=== PATIENT | female | born 1945 | race Caucasian/White ===

== ENCOUNTER 2017-03-17 15:53 | Inpatient (IN) | payer MEDICARE, MEDICAID ==
[~2017-03-17] VITALS: Ht 162.6 cm; Wt 105.3 kg
[2017-03-17] MEDS ORDERED: METHYLPREDNISOLONE 125 MG INJ IV STA (15:58)
[2017-03-17] MEDS ORDERED: IPRATROPIUM (NEB) 0.5 MG/2.5 ML AMP INH STA (15:58)
[2017-03-17] MEDS ORDERED: ALBUTEROL 0.5% (NEB) 2.5 MG/0.5 ML AMP INH STA (15:58)
--- NOTE | 2017-03-17 16:05 | ERD ---
ER Documentation Chief Complaint Chief Complaint SOB HPI This is a 71-year-old female with a past medical history of COPD, CHF, question of dementia who is presenting with progressive worsening cough, congestion, wheezing and shortness of breath. The patient is tachypneic and diffusely wheezy in the emergency department, but she reports that nothing is wrong. The patient denies feeling sick. The patient denies fever or chills. The patient has had no headache or vision changes. The patient does not endorse neck or back pain. The patient denies lightheadedness or dizziness. The patient has had no chest pain or shortness of breath or trouble breathing. The patient denies nausea or vomiting. The patient denies abdominal pain or changes to bowel movements or urination. The patient has had no focal deficits. The patient has had no weakness or numbness or tingling to the face or extremities. ROS All systems reviewed and are negative except as per history of present illness. Allergies Allergies: Coded Allergies: No Known Allergy (Unverified , 03/17/17) PMhx/Soc Hx Neurological Disorder: Yes (?Dementia) Hx Respiratory Disorders: Yes (COPD) Hx Cardiac Disorders: Yes (CHF) Hx Psychiatric Problems: No Hx Miscellaneous Medical Probl: No Hx Alcohol Use: No Hx Substance Use: No Hx Tobacco Use: Yes Smoking Status: Current every day smoker FmHx Patient will not provide a family history Physical Exam Vitals Vital Signs Date Time Temp Pulse Resp B/P Pulse Ox O2 Delivery O2 Flow Rate FiO2 03/17/17 21:03 75 24 95 Non Rebreather Mask 15.0 03/17/17 20:02 98.6 77 27 124/65 BIPAP 03/17/17 19:35 77 93 50 03/17/17 18:38 10.0 03/17/17 18:36 Nasal Cannula 03/17/17 18:35 98.3 79 20 120/57 92 BIPAP 10.0 03/17/17 17:30 98.3 85 20 140/45 98 Room Air 03/17/17 17:16 83 100 50 03/17/17 16:31 94 97 50 03/17/17 15:56 102.5 95 36 140/45 85 Physical Exam Const: No apparent distress, well-developed, well-nourished Head: Normocephalic, Atraumatic Eyes: Normal Conjunctiva. Extraocular movements intact. Pupils equal, round and reactive to light ENT: Normal External Ears, Nose and Mouth. Neck: Full range of motion. No meningismus. Resp: Tachypneic, Diffuse wheezes, Faint bibasilar rales Cardio: Regular rate and rhythm. No murmurs, rubs or gallops Abd: Obese, soft, non tender, non distended. Normal bowel sounds Skin: No petechiae or rashes. Back: No midline tenderness. No CVA tenderness Ext: No cyanosis, or edema. Neur: Awake and alert, oriented 2. Cranial nerves intact. No facial droop. Normal strength, sensation and coordination. Result Diagram: 03/17/17 1630 03/17/17 1630 Results 24 hrs Laboratory Tests Test 03/17/17 16:30 03/17/17 17:25 White Blood Count 8.210^3/ul Red Blood Count 3.4510^6/ul Hemoglobin 10.6g/dl Hematocrit 31.9% Mean Corpuscular Volume 92.5fl Mean Corpuscular Hemoglobin 30.7pg Mean Corpuscular Hemoglobin Concent 33.2g/dl Red Cell Distribution Width 13.6% Platelet Count 96479^3/UL Mean Platelet Volume 11.5fl Neutrophils % 77.0% Lymphocytes % 9.0% Monocytes % 13.4% Eosinophils % 0.0% Basophils % 0.2% Nucleated Red Blood Cells % 0.0/100WBC Neutrophils # 6.310^3/ul Lymphocytes # 0.710^3/ul Monocytes # 1.110^3/ul Eosinophils # 0.010^3/ul Basophils # 0.010^3/ul Nucleated Red Blood Cells # 0.010^3/ul Prothrombin Time 13.2Sec Prothrombin Time Ratio 1.0 INR International Normalized Ratio 0.99 Activated Partial Thromboplast Time 26.9Sec Sodium Level 131mmol/L Potassium Level 3.8mmol/L Chloride Level 96mmol/L Carbon Dioxide Level 25mmol/L Anion Gap 14 Blood Urea Nitrogen 15mg/dl Creatinine 0.81mg/dl Glucose Level 132mg/dl Calcium Level 7.9mg/dl Iron Level 29ug/dl Total Iron Binding Capacity 317ug/dl Percent Iron Saturation 9% SAT Troponin I 0.040ng/ml B-Type Natriuretic Peptide 883PG/ML Blood Gas Specimen Source Blood arterial Arterial Blood Date Drawn 03/17/2017 6:29:07 PM Arterial Blood pH (Temp corrected) 7.329 Arterial Blood pCO2 (Temp correct) 43.3mmhg Arterial Blood pO2 (Temp corrected) 74.3mmHG Arterial Blood HCO3 22.3mmol/L Arterial Blood Base Excess -3.6mmol/L Arterial Blood Oxygen Saturation 94.3mmHG Vahe Test ACCEPTAB Arterial Blood Gas Puncture Site Right Radial Arterial Blood Carboxyhemoglobin 1.6% Arterial Blood Methemoglobin 0.1% Blood Gas A-a O2 Differential 233.5mmHg Oxyhemoglobin Percent 92.7% Total Hemoglobin 11.6g/dl Blood Gas Temperature 37.0C Blood Gas Respiration Rate 12.0 Blood Gas Actual Respiration Rate 30 Blood Gas Modality MASK - BIPAP FiO2 50.0% Blood Gas Pressure Support 10 Blood Gas IPAP/EPAP Ratio 15 Blood Gas Notified Whom M.D. Blood Gas Notified Time 03/17/2017 6:36:45 PM Current Medications Medications (Trade) Dose Ordered Sig/Steven Route PRN Reason Start Time Stop Time Status Last Admin Dose Admin Ipratropium Natoma (Atrovent 0.02% (Neb)) 1.5 mg ONCE STAT INH 03/17/17 15:58 03/17/17 16:03 DC 03/17/17 16:12 Albuterol (Proventil 0.5% (Neb)) 15 mg ONCE STAT INH 03/17/17 15:58 03/17/17 16:03 DC 03/17/17 16:12 Methylprednisolone Sodium Succinate (Solu-Medrol) 125 mg ONCE STAT IV 03/17/17 15:58 03/17/17 16:03 DC 03/17/17 16:26 Ondansetron HCl (Zofran Inj) 4 mg ER BRIDGE PRN IV NAUSEA AND/OR VOMITING 03/17/17 18:00 03/18/17 17:59 03/17/17 19:51 Acetaminophen 650 mg 650 mg ER BRIDGE PRN PO MILD PAIN/FEVER 03/17/17 18:00 03/18/17 17:59 Sodium Chloride (NS) 1,000 ml @ 75 mls/hr [id number] IV 03/17/17 18:06 03/18/17 06:05 03/17/17 19:51 IV Flush (NS 3 ml) 3 ml PER PROTOCOL IV 03/17/17 18:30 Ondansetron HCl (Zofran Inj) 4 mg Q6H PRN IV NAUSEA AND/OR VOMITING 03/17/17 18:30 Acetaminophen (Tylenol Tab) 650 mg Q6H PRN PO PAIN LEVEL 1-3 OR FEVER 03/17/17 18:30 Docusate Sodium (Colace) 100 mg Q12H PRN PO CONSTIPATION 03/17/17 18:30 Magnesium Hydroxide (Milk Of Mag) 30 ml DAILY PRN PO CONSTIPATION 03/17/17 18:30 Pantoprazole (Protonix Tab) 40 mg DAILY@06 PO 03/18/17 06:00 Enoxaparin Sodium (Lovenox) 40 mg DAILY SC 03/18/17 09:00 Albuterol/ Ipratropium (Duoneb) 3 ml Q4H RESP THERAPY NEB 03/17/17 21:00 03/17/17 21:03 Albuterol (Proventil 0.083% (Neb)) 2.5 mg Q2H RESP THERAPY PRN NEB SHORTNESS OF BREATH 03/17/17 18:30 Methylprednisolone Sodium Succinate 60 mg 60 mg Q6 IV 03/18/17 00:00 Levofloxacin/ Dextrose (Levaquin 500mg/ D5W 100 ml (Pmx)) 250 ml @ 100 mls/hr Q24H IV 03/17/17 18:30 03/17/17 19:50 Furosemide (Lasix) 40 mg ONCE ONCE IV 03/17/17 19:30 03/17/17 19:31 DC 03/17/17 19:51 Procedures/MDM MDM The patient's presentation warrants further investigation. The patient's symptoms are concerning for a COPD exacerbation. A cardiopulmonary workup will be performed. She needs to be evaluated for PNA. She denies chest pain. She does not have a history consistent with ACS. The patient has CHF, but clinically , this doesn't appear to be a CHF exacerbation. She does not have symptoms of thoracic aortic dissection or PTX. PE is possible given her hypoxia and tachypnea, but I have a higher suspicion for COPD given her wheezing. She has no GI symptoms. I have low suspicion for esophageal tear or perforation or other pathology. LABS The patient's blood work was obtained and reviewed. The patient's CBC shows no leukocytosis and no left shift. The patient was initially febrile, so there is a possibility of infection. The patient is mildly anemic today, but this does not require emergent therapy. The patient's platelet count is unremarkable. The patient's CMP shows no signs of metabolic or electrolyte emergencies. She has a mild hyponatremia, but this does not require emergent replacement. The patient has unremarkable renal and hepatic function testing. Troponin is within normal limits. BNP is indeterminant. EKG EKG read by me: Rate/Rhythm: Sinus rhythm with PACs at 97 bpm Intervals: Normal Portal: Left shifted Impression: No evidence of ischemia or arrhythmia IMAGING CXR FINDINGS: There is mild cardiomegaly. Aortic calcifications are present. There is mild pulmonary edema and probable trace left pleural effusion. No evidence of pneumothorax. There are degenerative changes of the spine. IMPRESSION: Mild pulmonary edema with probable trace left pleural effusion. Electronically viewed and signed by Physician Clare on 03/17/2017 16:59 TREATMENT/DISPOSITION Patient was hypoxic to the 60s upon arrival. The patient placed on BiPAP upon arrival with improvement of her oxygenation. ABG shows a decreased PaO2 but her PCO2 and HCO2 is unremarkable. The patient was initially febrile. There is a chance of infection, such as bronchitis or URI, but there is no evidence of PNA. Given that her symptoms are consistent with a COPD exacerbation, antibiotics may be warranted in the hospital. I doubt sepsis. The patient was given nebulized albuterol, ipratropium and steroids in the ER. If the patient's symptoms don't improve, a CTA chest may be warranted for further detail of the lungs and for evaluation of PE. The patient's symptoms stabilized on BiPAP. At this time, I feel that the patient requires admission for further evaluation and management. The patient will be admitted to Panel in accordance with the patient's insurance. The patient was accepted by Dr. Rodriguez at 1732PM on 03/17/2017. The patient's blood pressure was elevated at greater than 120/80 while in the emergency department. The patient was otherwise stable with no evidence of hypertensive urgency or emergency or end organ damage. The patient does not require admission for blood pressure control. I have discussed with the patient the risks of hypertension. I have advised the patient to follow up with the primary care physician for outpatient monitoring and treatment for hypertension in 2-3 days. I have instructed the patient to return to the ER for any new or worsening symptoms including chest pain, shortness of breath, headache, blurred vision, confusion, nausea, vomiting or LOC. Disclaimer: Inadvertent spelling and grammatical errors are likely due to EHR/ dictation software use and do not reflect on the overall quality of patient care. Note that the electronic time recorded on this note does not necessarily reflect the actual time of the patient encounter. Departure Diagnosis: Primary Impression: Hypoxia Additional Impressions: Shortness of breath COPD exacerbation URI (upper respiratory infection) URI type: unspecified URI Qualified Code: J06.9 - Upper respiratory tract infection, unspecified type Condition: Serious MORGAN GARDINER MD Mar 17, 2017 16:05 MORGAN GARDINER MD Mar 17, 2017 16:05
[2017-03-17 16:42] LABS: BASOPHILS % 0.2 % (0.0-2.0); HEMATOCRIT 31.9 % (37.0-47.0); HEMOGLOBIN 10.6 g/dl (12.0-16.0); LYMPHOCYTES # 0.7 10^3/ul (0.8-2.9); MEAN CORPUSCULAR HEMOGLOBIN 30.7 pg (29.0-33.0); MEAN CORPUSCULAR HGB CONC 33.2 g/dl (32.0-37.0); MEAN CORPUSCULAR VOLUME 92.5 fl (82.0-101.0); MEAN PLATELET VOLUME 11.5 fl (7.4-10.4); MONOCYTE # 1.1 10^3/ul (0.3-0.9); MONOCYTES % 13.4 % (0.0-11.0); NEUTROPHIL # 6.3 10^3/ul (1.6-7.5); PLATELET COUNT 197 10^3/UL (140-415); RED BLOOD COUNT 3.45 10^6/ul (4.20-5.40); RED CELL DISTRIBUTION WIDTH 13.6 % (11.5-14.5); WHITE BLOOD COUNT 8.2 10^3/ul (4.8-10.8)
[2017-03-17 16:56] LABS: INR 0.99; PROTIME 13.2 Sec (11.9-14.9)
[2017-03-17 16:57] LABS: PARTIAL THROMBOPLASTIN TIME 26.9 Sec (25.0-35.0)
[2017-03-17 16:59] LABS: CALCIUM 7.9 mg/dl (8.4-10.2); CREATININE 0.81 mg/dl (0.44-1.00); POTASSIUM 3.8 mmol/L (3.5-5.1)
--- NOTE | 2017-03-17 16:59 | RADRPT ---
PROCEDURE: XR Chest. CLINICAL INDICATION: Shortness of breath. TECHNIQUE: Single frontal view of the chest was obtained COMPARISON: None FINDINGS: There is mild cardiomegaly. Aortic calcifications are present. There is mild pulmonary edema and probable trace left pleural effusion. No evidence of pneumothorax. There are degenerative changes of the spine. IMPRESSION: 1. Mild pulmonary edema with probable trace left pleural effusion. RPTAT:AAJJ Physician Clare Date Time Electronically viewed and signed by Juanpablo Toussaint Physician on 03/17/2017 16:59 QL/
[2017-03-17 17:11] LABS: TROPONIN-I 0.04 ng/ml (0.00-0.12)
[2017-03-17] MEDS ORDERED: ONDANSETRON 4 MG INJ IV PRN ×2 (18:00→18:30)
[2017-03-17] MEDS ORDERED: ACETAMINOPHEN 325 MG TAB PO PRN ×2 (18:00→18:30)
--- NOTE | 2017-03-17 18:28 | HP ---
Date/Time of Note Date/Time of Note DATE: 03/17/17 TIME: 18:10 Assessment/Plan VTE Prophylaxis VTE Prophylaxis Intervention: SCD's Assessment/Plan Assessment/Plan 1. COPD exacerbation - patient is an everyday smoker and denies any respiratory issues at this time - Will continue on bipap due to continuing to desaturate but will wean to maintain saturations >88% - Awaiting ABG results - Pulmonology consultation placed - Continue on IV steroids, nebs, and antibiotics 2. Acute respiratory failure with hypoxia secondary to #1 - continue on BIPAP and saturations improved to 98% - Continue monitoring 3. ?Acute on chronic CHF - patient does not appear to be overloaded - CXR shows mild pulmonary congestion - BNP pending - Will continue on home medications - ECHO to assess EF 4. HTN - BP stable - continue on home medications 5. HLD 6. Hyponatremia - possibly hypovolemic etiology - will gently hydrate with IVF for 12 hours then reassess need for fluid given h /o CHF 7. Anemia - will check iron studies 8. Diet - cardiac diet 9. GI ppx - PPI 10. DVT ppx - LMWH 11. Code status - Full 12. Disposition - Admit to telemetry HPI/ROS Admit Date/Time Admit Date/Time 03/17/17 Hx of Present Illness 71 yo F with PMH HTN, HLD, CHF, and COPD presented to ED with no complaints. When asked what brought her to the ED she states the facility she lives at made her come. Patient is a poor historian. History obtained from ED physician. Patient has been experiencing cough with sputum production, shortness of breath , and wheezing. She was found to be saturating 67% on room air when presented to the ED. When asked ROS states everything was fine and nothing wrong with her lungs. She did make it clear she does not plan to quit smoking. She lives at a [facility] facility. Patient was placed on BIPAP in the ED and when removed desaturated to 84% and had audible wheezing. CXR showed mild pulmonary edema. ABG and BNP obtained but pending. Patient denies any chest pain, shortness of breath, nausea, vomiting, fevers, chills, or abdominal issues. ROS All 12 systems reviewed and pertinent positives as per HPI. Patient is a poor historian and denies any complaints. Constitutional: No diaphoresis, No febrile, No nausea Eyes: No discharge, No redness ENT: No congestion, No discharge Respiratory: cough, sputum, No pain, No shortness of breath, No wheezing Cardiovascular: No chest pain, No edema, No lightheadedness, No palpitations Gastrointestinal: No constipation, No diarrhea, No nausea, No vomiting Genitourinary: no complaints Musculoskeletal: no complaints Skin: no complaints Neurologic: no complaints Endocrine: no complaints Lymphatic: no complaints Psychological: no complaints Immunologic: no complaints PMH/Family/Social Past Medical History Medical History: congestive heart failure, high cholesterol, hypertension, other (COPD) Past Surgical History Denies surgeries Family History Significant Family History: no pertinent family hx Social History Alcohol Use: none Smoking Status: Current every day smoker Drug Use: none Exam/Review of Systems Vital Signs Vitals Vital Signs Date Time Temp Pulse Resp B/P Pulse Ox O2 Delivery O2 Flow Rate FiO2 03/17/17 17:16 83 100 50 03/17/17 15:56 102.5 36 140/45 Exam Exam General: patient labored breathing off BIPAP with audible wheezing, disheveled, upbeat and pleasant HEENT: EOM intact, PERRL, neck supple CVS: S1, S2, RRR, no murmurs Lungs: audible expiratory wheezing, diminished breath sounds, basilar crackles Abd: soft, nontender, nondistended, +bowel sounds, no rebound or guarding Ext: moving all extremities, no edema, cyanosis, or clubbing Skin: no bruising, rashes, or abnormalities appreciated Labs Result Diagram: 03/17/17 1630 03/17/17 1630 Medications Medications Current Medications Sodium Chloride (NS) 1,000 ml @ 75 mls/hr [id number] IV ; Start 03/17/17 at 18:06 ; Stop 03/18/17 at 06:05; Status UNV Ondansetron HCl (Zofran Inj) 4 mg Q6H PRN IV NAUSEA AND/OR VOMITING; Start at 18:30; Status UNV Acetaminophen (Tylenol Tab) 650 mg Q6H PRN PO PAIN LEVEL 1-3 OR FEVER; Start 03/17/17 at 18:30; Status UNV Docusate Sodium (Colace) 100 mg Q12H PRN PO CONSTIPATION; Start 03/17/17 at 18 :30; Status UNV Magnesium Hydroxide (Milk Of Mag) 30 ml DAILY PRN PO CONSTIPATION; Start 03/17 at 18:30; Status UNV Pantoprazole (Protonix Tab) 40 mg DAILY@06 PO ; Start 03/18/17 at 06:00; Status UNV Enoxaparin Sodium (Lovenox) 40 mg DAILY SC ; Start 03/18/17 at 09:00; Status UNV FREYA LEGER MD Mar 17, 2017 18:21
[2017-03-17] MEDS ORDERED: ALBUTEROL 0.083% (NEB) 2.5 MG/3 ML AMP NEB PRN (18:30)
[2017-03-17] MEDS ORDERED: NACL 0.9% 3 ML SYG IV SCH (18:30)
[2017-03-17] MEDS ORDERED: MAGNESIUM HYDROXIDE 30ML CUP PO PRN (18:30)
[2017-03-17] MEDS ORDERED: DOCUSATE SODIUM 100 MG CAP PO PRN (18:30)
[2017-03-17 18:36] LABS: AADO2 Arterial 233.5 mmHg (7.0-24.0); Allen Test ACCEPTAB; Arterial Base Excess -3.6 mmol/L (-3.0-3); Arterial COHb 1.6 % (0.0-3.0); Arterial Fraction of Oxyhgb 92.7 % (93.0-99.0); Arterial HCO3 22.3 mmol/L (22.0-26.0); Arterial MetHb 0.1 % (0.0-1.5); Arterial Total Hemglobin 11.6 g/dl (12.0-18.0); Blood Gas IEPAP 15/5; Blood Gas PS 10; MODE MASK - BIPAP
[2017-03-17 18:49] LABS: IRON 29 ug/dl (35-150)
[2017-03-17 18:59] LABS: TOTAL IRON BINDING CAPACITY 317 ug/dl (241-421)
[2017-03-17] MEDS ORDERED: FUROSEMIDE 40 MG INJ IV ONE (19:30)
[2017-03-17] MEDS: LEVOFLOXACIN 500MG/D5W (PMX) 250 ML IV SCH (19:50)
[2017-03-17] MEDS: SOD CHLORIDE 0.9% 1,000 ML IV SCH (19:51)
[2017-03-17] MEDS: ALBUTEROL/IPRATROPIUM (NEB) 3 ML AMP NEB SCH (21:03)
[2017-03-18] VITALS (17 sets, daily range): BP systolic 101–124; BP diastolic 52–66; PULSE 60–71; RESP 18–22; TEMP 97.7; Ht 162.6 cm; Wt 105.3 kg
[2017-03-18] MEDS: ALBUTEROL/IPRATROPIUM (NEB) 3 ML AMP NEB SCH ×6 (01:25→20:28)
[2017-03-18] MEDS: SOD CHLORIDE 0.9% 1,000 ML IV SCH (02:45)
[2017-03-18] MEDS: METHYLPREDNISOLONE 125 MG INJ IV SCH ×4 (05:17→17:46)
[2017-03-18] MEDS: PANTOPRAZOLE (EC) 40 MG TAB PO SCH (05:20)
[2017-03-18 05:50] LABS: ABNORMAL IP MESSAGE 1; BASOPHILS % 0.2 % (0.0-2.0); HEMATOCRIT 33.4 % (37.0-47.0); HEMOGLOBIN 10.5 g/dl (12.0-16.0); LYMPHOCYTES # 0.3 10^3/ul (0.8-2.9); LYMPHOCYTES % 4.9 % (15.0-51.0); MEAN CORPUSCULAR HEMOGLOBIN 30.2 pg (29.0-33.0); MEAN CORPUSCULAR HGB CONC 31.4 g/dl (32.0-37.0); MEAN PLATELET VOLUME 11.9 fl (7.4-10.4); MONOCYTE # 0.2 10^3/ul (0.3-0.9); MONOCYTES % 2.5 % (0.0-11.0); NEUTROPHIL # 5.9 10^3/ul (1.6-7.5); NEUTROPHILS % 91.6 % (39.0-77.0); PLATELET COUNT 173 10^3/UL (140-415); RED BLOOD COUNT 3.48 10^6/ul (4.20-5.40); RED CELL DISTRIBUTION WIDTH 13.5 % (11.5-14.5); WHITE BLOOD COUNT 6.4 10^3/ul (4.8-10.8)
[2017-03-18 06:02] LABS: POSITIVE DIFF @See below
[2017-03-18 06:13] LABS: ALBUMIN 3.6 g/dl (3.3-4.9); CREATININE 0.88 mg/dl (0.44-1.00); MAGNESIUM 1.7 mg/dl (1.7-2.5); POTASSIUM 4.9 mmol/L (3.5-5.1)
[2017-03-18] MEDS: ENOXAPARIN 40 MG/0.4 ML SYG SC SCH (08:44)
[2017-03-18] MEDS: TERBINAFINE 250 MG TAB PO SCH ×3 (09:30→20:38)
--- NOTE | 2017-03-18 09:41 | PN ---
Date/Time of Note Date/Time of Note DATE: 03/18/17 TIME: 09:36 Assessment/Plan VTE Prophylaxis VTE Prophylaxis Intervention: heparin Lines/Catheters IV Catheter Type (from Nrs): Peripheral IV Assessment/Plan Problems: (1) Patient data not recorded Status: Acute Comment: She is not able to give much history. I called the home phone number and discovered that she lives insulin pump at a residential facility. They were able to give me her medication list and that her physician is Dr. West. Her medications are amlodipine 10 mg once daily atorvastatin 10 [place] [address] 0.5 every morning furosemide 40 mg daily Risperdal 3 mg twice daily. He has not been on a on any inhalers. (2) Shortness of breath Status: Acute Comment: She is still short of breath on BiPAP. With this degree of respiratory failure and the need place her on anti-COPD therapeutics, as well as treat her for volume overload. (3) Hypoxia Status: Acute Comment: As above. Pulmonary has been consulted (4) Iron deficiency anemia Status: Chronic Comment: I will replete her iron parenterally. This will need to be worked up as an outpatient by her primary physician Dr. West Qualifiers: Iron deficiency anemia type: unspecified iron deficiency Qualified Code: D50.9 - Iron deficiency anemia, unspecified iron deficiency anemia type (5) Lipidemia Status: Chronic Comment: Continue on statin therapy. Qualifiers: Hyperlipidemia type: pure hypercholesterolemia Qualified Code: E78.00 - Pure hypercholesterolemia (6) Essential hypertension Status: Chronic Comment: Resume her losartan. Please note I would like to adjust downwards on the amlodipine which causes fluid retention lower extremity edema. (7) Schizoaffective disorder Status: Chronic Comment: Risperdal to resume tomorrow. Qualifiers: Schizoaffective disorder type: unspecified Qualified Code: F25.9 - Schizoaffective disorder, unspecified type (8) Obesity (BMI 30-39.9) Status: Chronic Comment: Calorie restriction diet. (9) COPD exacerbation Status: Acute Comment: Again she is on standard anti-COPD medications. I am going to be following her sugars as I have a fear that she has an on mentioned glucose intolerance. Subjective 24 Hr Interval Summary Free Text/Dictation Elderly female who is quite gregarious while wearing BiPAP. She has extremely limited information as not able to add to the database Constitutional: no complaints Respiratory: shortness of breath Cardiovascular: no complaints Gastrointestinal: no complaints Exam/Review of Systems Vital Signs Vitals Vital Signs Date Time Temp Pulse Resp B/P Pulse Ox O2 Delivery O2 Flow Rate FiO2 03/18/17 09:14 98.3 64 18 101/52 92 03/18/17 08:18 50 03/18/17 01:29 Mask 10.0 Intake and Output 03/17/17 03/17/17 03/18/17 15:00 23:00 07:00 Intake Total 1700 ml Output Total 650 ml Balance 1050 ml Exam Constitutional: alert, oriented Neck: non-tender, supple Respiratory: diminished breath sounds, wheezing Cardiovascular: nl pulses, regular rate and rhythm Results Result Diagram: 03/18/17 0427 03/18/17 0426 Results 24 hrs Laboratory Tests Test 03/17/17 16:30 03/17/17 17:25 03/18/17 04:26 03/18/17 04:27 White Blood Count 8.2 6.4 # Red Blood Count 3.45 L 3.48 L Hemoglobin 10.6 L 10.5 L Hematocrit 31.9 L 33.4 L Mean Corpuscular Volume 92.5 96.0 Mean Corpuscular Hemoglobin 30.7 30.2 Mean Corpuscular Hemoglobin Concent 33.2 31.4 L Red Cell Distribution Width 13.6 13.5 Platelet Count 197 173 Mean Platelet Volume 11.5 H 11.9 H Neutrophils % 77.0 91.6 H Lymphocytes % 9.0 L 4.9 L Monocytes % 13.4 H 2.5 Eosinophils % 0.0 0.0 Basophils % 0.2 0.2 Nucleated Red Blood Cells % 0.0 0.0 Neutrophils # 6.3 5.9 Lymphocytes # 0.7 L 0.3 L Monocytes # 1.1 H 0.2 L Eosinophils # 0.0 0.0 Basophils # 0.0 0.0 Nucleated Red Blood Cells # 0.0 0.0 Prothrombin Time 13.2 Prothrombin Time Ratio 1.0 INR International Normalized Ratio 0.99 Activated Partial Thromboplast Time 26.9 Sodium Level 131 L 133 L Potassium Level 3.8 4.9 Chloride Level 96 L 97 Carbon Dioxide Level 25 24 Anion Gap 14 17 H Blood Urea Nitrogen 15 23 H Creatinine 0.81 0.88 Glucose Level 132 198 Calcium Level 7.9 L 8.0 L Iron Level 29 L Total Iron Binding Capacity 317 Percent Iron Saturation 9 L Troponin I 0.040 B-Type Natriuretic Peptide 883 H Blood Gas Specimen Source Blood arterial Arterial Blood Date Drawn 03/17/2017 6:29:07 PM Arterial Blood pH (Temp corrected) 7.329 L Arterial Blood pCO2 (Temp correct) 43.3 Arterial Blood pO2 (Temp corrected) 74.3 L Arterial Blood HCO3 22.3 Arterial Blood Base Excess -3.6 L Arterial Blood Oxygen Saturation 94.3 L Vahe Test ACCEPTAB Arterial Blood Gas Puncture Site Right Radial Arterial Blood Carboxyhemoglobin 1.6 Arterial Blood Methemoglobin 0.1 Blood Gas A-a O2 Differential 233.5 H Oxyhemoglobin Percent 92.7 L Total Hemoglobin 11.6 L Blood Gas Temperature 37.0 Blood Gas Respiration Rate 12.0 Blood Gas Actual Respiration Rate 30 Blood Gas Modality MASK - BIPAP FiO2 50.0 Blood Gas Pressure Support 10 Blood Gas IPAP/EPAP Ratio 15/5 Blood Gas Notified Whom M.D. Blood Gas Notified Time 03/17/2017 6:36:45 PM Phosphorus Level 6.0 H Magnesium Level 1.7 Albumin 3.6 Medications Medications Current Medications Ondansetron HCl (Zofran Inj) 4 mg Q6H PRN IV NAUSEA AND/OR VOMITING; Start at 18:30 Acetaminophen (Tylenol Tab) 650 mg Q6H PRN PO PAIN LEVEL 1-3 OR FEVER; Start 03/17/17 at 18:30 Docusate Sodium (Colace) 100 mg Q12H PRN PO CONSTIPATION; Start 03/17/17 at 18 :30 Magnesium Hydroxide (Milk Of Mag) 30 ml DAILY PRN PO CONSTIPATION; Start 03/17 at 18:30 Pantoprazole (Protonix Tab) 40 mg DAILY@06 PO Last administered on 03/18/17 05:20; Admin Dose 40 MG; Start 03/18/17 at 06:00 Enoxaparin Sodium (Lovenox) 40 mg DAILY SC Last administered on 03/18/17 08: 44; Admin Dose 40 MG; Start 03/18/17 at 09:00 Methylprednisolone Sodium Succinate 60 mg 60 mg Q6 IV Last administered on 05:17; Admin Dose 60 MG; Start 03/18/17 at 00:00 Levofloxacin/ Dextrose (Levaquin 500mg/ D5W 100 ml (Pmx)) 250 ml @ 100 mls/hr Q24H IV Last administered on 03/17/17t 19:50; Admin Dose 100 MLS/HR; Start at 18:30 GABBIE RENAE MD Mar 18, 2017 09:41
[2017-03-18] MEDS ORDERED: DEXTROSE 50% 50 ML SYRINGE IV PRN ×2 (10:00)
[2017-03-18] MEDS ORDERED: GLUCOSE GEL 15 GRAM TUBE PO PRN ×2 (10:00)
[2017-03-18] MEDS: TIOTROPIUM 18 MCG CAPSULE INHA DEV INH SCH ×2 (10:00→11:52)
[2017-03-18] MEDS: SALMETEROL/FLUTICASONE 250/50 INHA INH SCH ×3 (10:00→20:37)
[2017-03-18] MEDS ORDERED: GLUCAGON 1 MG INJ IM PRN (10:00)
[2017-03-18] MEDS ORDERED: GLUCOSE GEL 15 GRAM TUBE BUCCAL PRN (10:00)
[2017-03-18] MEDS: FUROSEMIDE 40 MG TAB PO SCH (10:05)
[2017-03-18] MEDS: SPIRONOLACTONE 25 MG TAB PO SCH (10:05)
[2017-03-18] MEDS: LOSARTAN 50 MG TAB PO SCH (10:06)
[2017-03-18] MEDS: AMLODIPINE 2.5 MG TAB PO SCH (10:06)
[2017-03-18] MEDS: SOD FERRIC GLUC COMPLX 125 MG in SOD CHLORIDE 0.9% 100 ML IVPB SCH (11:51)
[2017-03-18] MEDS: INSULIN ASPART [NOVOLOG] 3 ML PEN SC SCH ×3 (12:02→20:38)
--- NOTE | 2017-03-18 15:06 | CONS ---
DATE OF ADMISSION: 03/17/2017 DATE OF CONSULTATION: REASON FOR CONSULTATION: Shortness of breath. Thank you, Dr. Rodriguez, for this consultation. HISTORY OF PRESENT ILLNESS: This is a 71-year-old lady with extensive tobacco history, continues to smoke 1 pack per day prior to this admission. She was admitted from facility with a several-day hi story of increasing shortness of breath, orthopnea, PND. The patient is a poor historian, unable to give me further details. On admission, required initiation of noninvasive positive pressure ventil ation and remains BiPAP dependent this morning; however, is awake, alert, and arousable. PAST MEDICAL HISTORY: 1. Likely chronic obstructive pulmonary disease. 2. Hypertension. 3. Hyperlipidemia. MEDICATIONS: Per chart. ALLERGIES: NONE. SOCIAL HISTORY: Positive tobacco history. No drug use. FAMILY HISTORY: Noncontributory. SYSTEMS REVIEW: A 14-point review of systems was negative other than that mentioned above. PHYSICAL EXAMINATION: GENERAL: Elderly lady on BiPAP currently arousable, afebrile. VITAL SIGNS: Temperature 98, pulse 70, blood pressure 101/52, O2 saturation 95% on BiPAP, FIO2 of 5 0%. Awake, alert. NECK: Supple. No JVD or lymphadenopathy. CARDIAC: S1, S2, no added sounds or murmurs. CHEST: Diminished air entry bilaterally. ABDOMEN: Soft, nontender. No guarding or rebound. EXTREMITIES: No cyanosis, clubbing, edema. NEUROLOGIC: No focal deficits. LABORATORY DATA: White count was 6.4, hemoglobin 10.5, platelets of 173, BUN 23, creatinine 0.88. Iron saturation was 9%. BNP 883. Initial ABG: pH 7.32, pCO2 of 43, pO2 of 74 on BiPAP. DIAGNOSTIC DATA: Chest x-ray was reviewed and showed mild pulmonary edema. IMPRESSION AND PLAN: 1. Possible mild diastolic dysfunction. 2. Chronic obstructive pulmonary disease with acute hypoxemic respiratory failure. 3. Underlying history of tobacco use. The patient will require 1. Steroids. 2. Bronchodilators. 3. Antibiotics if progressive leukocytosis. 4. Outpatient pulmonary function test. 5. Advised on smoking cessation. 6. Pneumonia and influenza vaccinations. Dictated By: DEMI SOARES/SHABNAM Conf#: [id number] DID#: [id number] CC: Lola Rodriguez;*EndCC*
[2017-03-18] MEDS: LEVOFLOXACIN 500MG/D5W (PMX) 250 ML IV SCH (17:46)
[2017-03-18] MEDS: ATORVASTATIN 10 MG TAB PO SCH (20:38)
[2017-03-18] MEDS: MONTELUKAST 10 MG TAB PO SCH (20:38)
[2017-03-19] VITALS (23 sets, daily range): BP systolic 92–150; BP diastolic 56–72; PULSE 59–96; RESP 18–21
[2017-03-19] MEDS: ACCU-CHEK XX SCH (01:04)
[2017-03-19] MEDS: ALBUTEROL/IPRATROPIUM (NEB) 3 ML AMP NEB SCH ×7 (01:16→20:56)
[2017-03-19] MEDS: PANTOPRAZOLE (EC) 40 MG TAB PO SCH (05:34)
[2017-03-19] MEDS: METHYLPREDNISOLONE 125 MG INJ IV SCH ×4 (05:34→17:31)
[2017-03-19 06:09] LABS: ABNORMAL IP MESSAGE 1; LYMPHOCYTES # 0.5 10^3/ul (0.8-2.9); LYMPHOCYTES % 5.2 % (15.0-51.0); MEAN CORPUSCULAR HEMOGLOBIN 30.4 pg (29.0-33.0); MEAN CORPUSCULAR HGB CONC 31.3 g/dl (32.0-37.0); MEAN CORPUSCULAR VOLUME 97.3 fl (82.0-101.0); MEAN PLATELET VOLUME 11.4 fl (7.4-10.4); MONOCYTE # 0.5 10^3/ul (0.3-0.9); MONOCYTES % 5.1 % (0.0-11.0); NEUTROPHIL # 9.3 10^3/ul (1.6-7.5); NEUTROPHILS % 89.1 % (39.0-77.0); PLATELET COUNT 199 10^3/UL (140-415); RED BLOOD COUNT 3.29 10^6/ul (4.20-5.40); RED CELL DISTRIBUTION WIDTH 13.6 % (11.5-14.5); WHITE BLOOD COUNT 10.4 10^3/ul (4.8-10.8)
[2017-03-19 06:15] LABS: POSITIVE DIFF @See below
[2017-03-19 06:47] LABS: ALBUMIN 3.3 g/dl (3.3-4.9); ALBUMIN/GLOBULIN RATIO 0.97; BILIRUBIN,INDIRECT 0.1 mg/dl (0-1.1); BILIRUBIN,TOTAL 0.1 mg/dl (0.2-1.3); CALCIUM 7.8 mg/dl (8.4-10.2); CREATININE 0.92 mg/dl (0.44-1.00); POTASSIUM 4.6 mmol/L (3.5-5.1); TOTAL PROTEIN 6.7 g/dl (6.1-8.1)
[2017-03-19 08:42] LABS: AADO2 Arterial 300.3 mmHg (7.0-24.0); Allen Test ACCEPTAB; Arterial Base Excess -0.2 mmol/L (-3.0-3); Arterial COHb 0.3 % (0.0-3.0); Arterial Fraction of Oxyhgb 93.1 % (93.0-99.0); Arterial HCO3 26.5 mmol/L (22.0-26.0); Arterial MetHb 0.1 % (0.0-1.5); Arterial Total Hemglobin 11.5 g/dl (12.0-18.0); Blood Gas IEPAP 15/5; MODE MASK - BIPAP
[2017-03-19] MEDS: INSULIN ASPART [NOVOLOG] 3 ML PEN SC SCH ×4 (08:50→21:00)
[2017-03-19] MEDS: ENOXAPARIN 40 MG/0.4 ML SYG SC SCH (08:50)
[2017-03-19] MEDS: SPIRONOLACTONE 25 MG TAB PO SCH (08:53)
[2017-03-19] MEDS: SALMETEROL/FLUTICASONE 250/50 INHA INH SCH ×2 (08:53→21:22)
[2017-03-19] MEDS: TERBINAFINE 250 MG TAB PO SCH ×2 (08:55→21:24)
[2017-03-19] MEDS: AMLODIPINE 2.5 MG TAB PO SCH (08:55)
[2017-03-19] MEDS: LOSARTAN 50 MG TAB PO SCH (08:55)
[2017-03-19] MEDS: FUROSEMIDE 40 MG TAB PO SCH (08:56)
[2017-03-19] MEDS: TIOTROPIUM 18 MCG CAPSULE INHA DEV INH SCH (08:59)
--- NOTE | 2017-03-19 10:30 | RADRPT ---
PROCEDURE: XR Chest. CLINICAL INDICATION: Pneumonia. Congestive heart failure. TECHNIQUE: Chest x-ray, single view. COMPARISON: 03/17/2017. FINDINGS: The heart is enlarged and unchanged in size. Thoracic aortic atherosclerotic calcification is presen t. Low lung volumes are observed. Mild basilar atelectatic changes are present. Prominence of the pu lmonary vasculature is present and unchanged. The left costophrenic angle is obscured suggesting the presence of a small pleural effusion. Osseous structures are demineralized. The visualized upper ab domen is unremarkable. IMPRESSION: Cardiomegaly and thoracic aortic atherosclerosis with mild prominence of the pulmonary vasculature. Low lung volumes with mild bibasilar atelectatic changes and probable small left pleural effusion. RPTAT: KK .Yesi Becerra MD, Date Time Electronically viewed and signed by .Yesi Becerra MD, MD on 03/19/2017 10:30 .T/
[2017-03-19] MEDS: SOD FERRIC GLUC COMPLX 125 MG in SOD CHLORIDE 0.9% 100 ML IVPB SCH (11:34)
--- NOTE | 2017-03-19 12:16 | PN ---
Date/Time of Note Date/Time of Note DATE: 03/19/17 TIME: 12:11 Assessment/Plan VTE Prophylaxis VTE Prophylaxis Intervention: LMWH Lines/Catheters IV Catheter Type (from Nrsg): Peripheral IV Assessment/Plan Assessment/Plan 1 acute hypoxic h ypercapneic respiratory failure secondary to #2 requiring BiPAP 2 end stage COPD with exacerbation 3 diastolic CHF 4 chronic extensive heavy tobacco use 5 hypertension 6 dyslipidemia PLAN: patient still in significant resp decompensation and in no state to leave, but she wants to sign AMA. I have encouraged to at least wait till tomorrow. 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 Continue steroids / bronchodilators and supportive care Wean O2 as much as possible Subjective 24 Hr Interval Summary Free Text/Dictation 7 bats of vtach over night still on bipap intermittently asking to be discharged Exam/Review of Systems Vital Signs Vitals Vital Signs Date Time Temp Pulse Resp B/P Pulse Ox O2 Delivery O2 Flow Rate FiO2 03/19/17 09:55 75 96 60 03/19/17 07:53 98.3 21 92/56 03/18/17 13:01 15.0 03/18/17 01:29 Mask Intake and Output 03/18/17 03/18/17 03/19/17 14:59 22:59 06:59 Intake Total 110 ml 100 ml 250 ml Balance 110 ml 100 ml 250 ml Exam Constitutional: alert, distress, obese Psych: nl mood/affect Head: normocephalic Eyes: PERRL Respiratory: diminished breath sounds, labored breathing, wheezing Cardiovascular: regular rate and rhythm Gastrointestinal: bowel sounds, non-tender, soft Extremities: edema Skin: rash or lesions Results Result Diagram: 03/19/17 0543 03/19/17 0543 Results 24 hrs Laboratory Tests Test 03/18/17 17:58 03/18/17 20:29 03/19/17 05:34 03/19/17 05:43 Bedside Glucose 153 160 Phosphorus Level 5.2 H White Blood Count 10.4 # Red Blood Count 3.29 L Hemoglobin 10.0 L Hematocrit 32.0 L Mean Corpuscular Volume 97.3 Mean Corpuscular Hemoglobin 30.4 Mean Corpuscular Hemoglobin Concent 31.3 L Red Cell Distribution Width 13.6 Platelet Count 199 Mean Platelet Volume 11.4 H Neutrophils % 89.1 H Lymphocytes % 5.2 L Monocytes % 5.1 Eosinophils % 0.0 Basophils % 0.0 Nucleated Red Blood Cells % 0.0 Neutrophils # 9.3 H Lymphocytes # 0.5 L Monocytes # 0.5 Eosinophils # 0.0 Basophils # 0.0 Nucleated Red Blood Cells # 0.0 Sodium Level 133 L Potassium Level 4.6 Chloride Level 99 Carbon Dioxide Level 26 Anion Gap 13 Blood Urea Nitrogen 33 H Creatinine 0.92 Glucose Level 157 Calcium Level 7.8 L Magnesium Level 2.0 Total Bilirubin 0.1 L Direct Bilirubin 0.00 Indirect Bilirubin 0.1 Aspartate Amino Transf (AST/SGOT) 72 H Alanine Aminotransferase (ALT/SGPT) 45 Alkaline Phosphatase 55 Total Protein 6.7 Albumin 3.3 Globulin 3.40 H Albumin/Globulin Ratio 0.97 Test 03/19/17 07:00 03/19/17 08:02 03/19/17 11:37 Blood Gas Specimen Source Blood arterial Arterial Blood Date Drawn 03/19/2017 8:20:06 AM Arterial Blood pH (Temp corrected) 7.323 L Arterial Blood pCO2 (Temp correct) 52.2 H Arterial Blood pO2 (Temp corrected) 70.1 L Arterial Blood HCO3 26.5 H Arterial Blood Base Excess -0.2 Arterial Blood Oxygen Saturation 93.5 L Vahe Test ACCEPTAB Arterial Blood Gas Puncture Site Right Radial Arterial Blood Carboxyhemoglobin 0.3 Arterial Blood Methemoglobin 0.1 Blood Gas A-a O2 Differential 300.3 H Oxyhemoglobin Percent 93.1 Total Hemoglobin 11.5 L Blood Gas Temperature 37.0 Blood Gas Respiration Rate 12.0 Blood Gas Actual Respiration Rate 21 Blood Gas Modality MASK - BIPAP FiO2 60.0 Blood Gas IPAP/EPAP Ratio 15/5 Blood Gas Notified Whom JLD Blood Gas Notified Time 03/19/2017 8:42:51 AM Bedside Glucose 153 166 Medications Medications Current Medications Ondansetron HCl (Zofran Inj) 4 mg Q6H PRN IV NAUSEA AND/OR VOMITING; Start at 18:30 Acetaminophen (Tylenol Tab) 650 mg Q6H PRN PO PAIN LEVEL 1-3 OR FEVER; Start 03/17/17 at 18:30 Docusate Sodium (Colace) 100 mg Q12H PRN PO CONSTIPATION Last administered on 03/18/17t 10:05; Admin Dose 100 MG; Start 03/17/17 at 18:30 Magnesium Hydroxide (Milk Of Mag) 30 ml DAILY PRN PO CONSTIPATION; Start 03/17 at 18:30 Pantoprazole (Protonix Tab) 40 mg DAILY@06 PO Last administered on 03/19/17 05:34; Admin Dose 40 MG; Start 03/18/17 at 06:00 Enoxaparin Sodium (Lovenox) 40 mg DAILY SC Last administered on 03/19/17 08: 50; Admin Dose 40 MG; Start 03/18/17 at 09:00 Methylprednisolone Sodium Succinate 60 mg 60 mg Q6 IV Last administered on 11:33; Admin Dose 60 MG; Start 03/18/17 at 00:00 Levofloxacin/ Dextrose 250 ml @ 100 mls/hr Q24H IV Last administered on 17:46; Admin Dose 100 MLS/HR; Start 03/17/17 at 18:30 Ferric Sodium Gluconate Complex/ Sodium Chloride (Ferrlecit/NS) 110 ml @ 100 mls/hr Q24H IVPB Last administered on 03/19/17 11:34; Admin Dose 100 MLS/HR; Start 03/18/17 at 11:00; Stop 03/20/17 at 12:05 Tiotropium [place] (Spiriva) 1 inh DAILY INH Last administered on 03/18/17 11 :52; Admin Dose 1 INH; Start 03/18/17 at 10:00 Salmeterol Xinafoate/ Fluticasone (Advair 250/50 Diskus) 1 inh BID INH Last administered on 03/19/17 08:53; Admin Dose 1 INH; Start 03/18/17 at 10:00 Montelukast Sodium (Singulair) 10 mg HS PO Last administered on 03/18/17 20: 38; Admin Dose 10 MG; Start 03/18/17 at 21:00 Diagnostic Test (Pha) (Accu-Chek) 1 ea 02 XX ; Start 03/19/17 at 02:00 Losartan Potassium (Cozaar) 100 mg DAILY PO Last administered on 03/18/17 10: 06; Admin Dose 100 MG; Start 03/18/17 at 09:30 Furosemide (Lasix) 40 mg DAILY PO Last administered on 03/19/17 08:56; Admin Dose 40 MG; Start 03/18/17 at 09:30 Spironolactone (Aldactone) 25 mg DAILY PO Last administered on 03/19/17 08:53 ; Admin Dose 25 MG; Start 03/18/17 at 09:30 Atorvastatin Calcium (Lipitor) 10 mg HS PO Last administered on 03/18/17 20: 38; Admin Dose 10 MG; Start 03/18/17 at 21:00 Amlodipine Besylate (Norvasc) 2.5 mg DAILY PO Last administered on 03/18/17 10:06; Admin Dose 2.5 MG; Start 03/18/17 at 09:30 Terbinafine HCl (Lamisil) 250 mg BID PO Last administered on 03/19/17 08:55; Admin Dose 250 MG; Start 03/18/17 at 09:30; Stop 03/25/17 at 09:29 Miscellaneous Information 1 ea NOTE XX ; Start 03/18/17 at 10:00 Glucose (Glutose) 15 gm Q15M PRN PO DECREASED GLUCOSE; Start 03/18/17 at 10:00 Glucose (Glutose) 22.5 gm Q15M PRN PO DECREASED GLUCOSE; Start 03/18/17 at 10: 00 Dextrose (D50w Syringe) 25 ml Q15M PRN IV DECREASED GLUCOSE; Start 03/18/17 at 10:00 Dextrose (D50w Syringe) 50 ml Q15M PRN IV DECREASED GLUCOSE; Start 03/18/17 at 10:00 Glucagon (Glucagen) 1 mg Q15M PRN IM DECREASED GLUCOSE; Start 03/18/17 at 10: 00 Glucose (Glutose) 15 gm Q15M PRN BUCCAL DECREASED GLUCOSE; Start 03/18/17 at 10:00 Procedures Procedures PROCEDURE: XR Chest. CLINICAL INDICATION: Pneumonia. Congestive heart failure. TECHNIQUE: Chest x-ray, single view. COMPARISON: 03/17/2017. FINDINGS: The heart is enlarged and unchanged in size. Thoracic aortic atherosclerotic calcification is present. Low lung volumes are observed. Mild basilar atelectatic changes are present. Prominence of the pulmonary vasculature is present and unchanged. The left costophrenic angle is obscured suggesting the presence of a small pleural effusion. Osseous structures are demineralized. The visualized upper abdomen is unremarkable. IMPRESSION: Cardiomegaly and thoracic aortic atherosclerosis with mild prominence of the pulmonary vasculature. Low lung volumes with mild bibasilar atelectatic changes and probable small left pleural effusion. RPTAT: KK .Yesi Becerra MD, MD Date Time Electronically viewed and signed by .Yesi Becerra MD, MD on 03/19/2017 10:30 .T/ CC: DEMI YARBROUGH MD, [facility] Mar 19, 2017 12:16
--- NOTE | 2017-03-19 12:46 | CONS ---
Date/Time of Note Date/Time of Note DATE: 03/19/17 TIME: 12:44 Consult Date/Type/Reason Admit Date/Time Mar 17, 2017 at 17:44 Initial Consult Date Type of Consultation: Pulmonary Subjective Patient remains stable no new events. Objective Vital Signs Date Time Temp Pulse Resp B/P Pulse Ox O2 Delivery O2 Flow Rate FiO2 03/19/17 12:40 62 03/19/17 09:55 96 60 03/19/17 07:53 98.3 21 92/56 03/18/17 13:01 15.0 03/18/17 01:29 Mask Intake and Output 03/18/17 03/18/17 03/19/17 14:59 22:59 06:59 Intake Total 110 ml 100 ml 250 ml Balance 110 ml 100 ml 250 ml Exam PHYSICAL EXAMINATION: GENERAL: Elderly lady on BiPAP currently arousable, afebrile. VITAL SIGNS: As above NECK: Supple. No JVD or lymphadenopathy. CARDIAC: S1, S2, no added sounds or murmurs. CHEST: Diminished air entry bilaterally. ABDOMEN: Soft, nontender. No guarding or rebound. EXTREMITIES: No cyanosis, clubbing, edema. NEUROLOGIC: No focal deficits. Results/Medications Result Diagram: 03/19/17 0543 03/19/17 0543 Results 24 hrs Laboratory Tests Test 03/18/17 17:58 03/18/17 20:29 03/19/17 05:34 03/19/17 05:43 Bedside Glucose 153 160 Phosphorus Level 5.2 H White Blood Count 10.4 # Red Blood Count 3.29 L Hemoglobin 10.0 L Hematocrit 32.0 L Mean Corpuscular Volume 97.3 Mean Corpuscular Hemoglobin 30.4 Mean Corpuscular Hemoglobin Concent 31.3 L Red Cell Distribution Width 13.6 Platelet Count 199 Mean Platelet Volume 11.4 H Neutrophils % 89.1 H Lymphocytes % 5.2 L Monocytes % 5.1 Eosinophils % 0.0 Basophils % 0.0 Nucleated Red Blood Cells % 0.0 Neutrophils # 9.3 H Lymphocytes # 0.5 L Monocytes # 0.5 Eosinophils # 0.0 Basophils # 0.0 Nucleated Red Blood Cells # 0.0 Sodium Level 133 L Potassium Level 4.6 Chloride Level 99 Carbon Dioxide Level 26 Anion Gap 13 Blood Urea Nitrogen 33 H Creatinine 0.92 Glucose Level 157 Calcium Level 7.8 L Magnesium Level 2.0 Total Bilirubin 0.1 L Direct Bilirubin 0.00 Indirect Bilirubin 0.1 Aspartate Amino Transf (AST/SGOT) 72 H Alanine Aminotransferase (ALT/SGPT) 45 Alkaline Phosphatase 55 Total Protein 6.7 Albumin 3.3 Globulin 3.40 H Albumin/Globulin Ratio 0.97 Test 03/19/17 07:00 03/19/17 08:02 03/19/17 11:37 Blood Gas Specimen Source Blood arterial Arterial Blood Date Drawn 03/19/2017 8:20:06 AM Arterial Blood pH (Temp corrected) 7.323 L Arterial Blood pCO2 (Temp correct) 52.2 H Arterial Blood pO2 (Temp corrected) 70.1 L Arterial Blood HCO3 26.5 H Arterial Blood Base Excess -0.2 Arterial Blood Oxygen Saturation 93.5 L Vahe Test ACCEPTAB Arterial Blood Gas Puncture Site Right Radial Arterial Blood Carboxyhemoglobin 0.3 Arterial Blood Methemoglobin 0.1 Blood Gas A-a O2 Differential 300.3 H Oxyhemoglobin Percent 93.1 Total Hemoglobin 11.5 L Blood Gas Temperature 37.0 Blood Gas Respiration Rate 12.0 Blood Gas Actual Respiration Rate 21 Blood Gas Modality MASK - BIPAP FiO2 60.0 Blood Gas IPAP/EPAP Ratio 15/5 Blood Gas Notified Whom JLD Blood Gas Notified Time 03/19/2017 8:42:51 AM Bedside Glucose 153 166 Medications Current Medications Ondansetron HCl (Zofran Inj) 4 mg Q6H PRN IV NAUSEA AND/OR VOMITING; Start at 18:30 Acetaminophen (Tylenol Tab) 650 mg Q6H PRN PO PAIN LEVEL 1-3 OR FEVER; Start 03/17/17 at 18:30 Magnesium Hydroxide (Milk Of Mag) 30 ml DAILY PRN PO CONSTIPATION; Start 03/17 at 18:30 Pantoprazole (Protonix Tab) 40 mg DAILY@06 PO Last administered on 03/19/17 05:34; Admin Dose 40 MG; Start 03/18/17 at 06:00 Enoxaparin Sodium (Lovenox) 40 mg DAILY SC Last administered on 03/19/17 08: 50; Admin Dose 40 MG; Start 03/18/17 at 09:00 Methylprednisolone Sodium Succinate 60 mg 60 mg Q6 IV Last administered on 11:33; Admin Dose 60 MG; Start 03/18/17 at 00:00 Levofloxacin/ Dextrose 250 ml @ 100 mls/hr Q24H IV Last administered on 17:46; Admin Dose 100 MLS/HR; Start 03/17/17 at 18:30 Ferric Sodium Gluconate Complex/ Sodium Chloride (Ferrlecit/NS) 110 ml @ 100 mls/hr Q24H IVPB Last administered on 03/19/17 11:34; Admin Dose 100 MLS/HR; Start 03/18/17 at 11:00; Stop 03/20/17 at 12:05 Tiotropium [place] (Spiriva) 1 inh DAILY INH Last administered on 03/18/17 11 :52; Admin Dose 1 INH; Start 03/18/17 at 10:00 Salmeterol Xinafoate/ Fluticasone (Advair 250/50 Diskus) 1 inh BID INH Last administered on 03/19/17 08:53; Admin Dose 1 INH; Start 03/18/17 at 10:00 Montelukast Sodium (Singulair) 10 mg HS PO Last administered on 03/18/17 20: 38; Admin Dose 10 MG; Start 03/18/17 at 21:00 Diagnostic Test (Pha) (Accu-Chek) 1 ea 02 XX ; Start 03/19/17 at 02:00 Losartan Potassium (Cozaar) 100 mg DAILY PO Last administered on 03/18/17 10: 06; Admin Dose 100 MG; Start 03/18/17 at 09:30; Status Future Hold Spironolactone (Aldactone) 25 mg DAILY PO Last administered on 03/19/17 08:53 ; Admin Dose 25 MG; Start 03/18/17 at 09:30 Atorvastatin Calcium (Lipitor) 10 mg HS PO Last administered on 03/18/17 20: 38; Admin Dose 10 MG; Start 03/18/17 at 21:00 Terbinafine HCl (Lamisil) 250 mg BID PO Last administered on 03/19/17 08:55; Admin Dose 250 MG; Start 03/18/17 at 09:30; Stop 03/25/17 at 09:29 Miscellaneous Information 1 ea NOTE XX ; Start 03/18/17 at 10:00 Glucose (Glutose) 15 gm Q15M PRN PO DECREASED GLUCOSE; Start 03/18/17 at 10:00 Glucose (Glutose) 22.5 gm Q15M PRN PO DECREASED GLUCOSE; Start 03/18/17 at 10: 00 Dextrose (D50w Syringe) 25 ml Q15M PRN IV DECREASED GLUCOSE; Start 03/18/17 at 10:00 Dextrose (D50w Syringe) 50 ml Q15M PRN IV DECREASED GLUCOSE; Start 03/18/17 at 10:00 Glucagon (Glucagen) 1 mg Q15M PRN IM DECREASED GLUCOSE; Start 03/18/17 at 10: 00 Glucose (Glutose) 15 gm Q15M PRN BUCCAL DECREASED GLUCOSE; Start 03/18/17 at 10:00 Docusate Sodium (Colace) 100 mg Q12H PO ; Start 03/19/17 at 18:30 Furosemide (Lasix) 20 mg DAILY IV ; Start 03/20/17 at 09:00; Stop 03/23/17 at 08:59 Assessment/Plan Chief Complaint/Hosp Course IMPRESSION AND PLAN: 1. Possible mild diastolic dysfunction. Consider echocardiogram 2. Chronic obstructive pulmonary disease with acute hypoxemic respiratory failure. 3. Underlying history of tobacco use. Plan 1. Steroids. 2. Bronchodilators. 3. Antibiotics continues Levaquin. 4. Outpatient pulmonary function test. 5. Advised on smoking cessation. 6. Pneumonia and influenza vaccinations. Problems: DEMI YARBROUGH MD, [facility] Mar 19, 2017 12:46
--- NOTE | 2017-03-19 17:24 | RADRPT ---
Echocardiogram Report Patient Name: CALEB GIBSON Gender: Female Date: 1945 Study Date: 18-Mar-2017 Corporate Executive: CHRIS Location: [id number] Ref. Physician: FREYA LEGER Quality: Good Procedures: Transthoracic echocardiogram with complete 2D, M-Mode, and doppler examination. Indications: Congestive Heart Failure. 2D/M Mode Doppler Measurement Value Normal Ranges Measurement Value Normal Ranges AoR Diam MM 3.1 cm AILYN Vmax 2.1 cm2 LA/Ao MM 1.4 AV Mean [place] 1.1 m/sec LA Dimen MM 4.3 cm AV Mean PG 5.0 mmHg LVIDd 2D 4.3 3.5 - 5.6 cm AV Peak [place] 1.5 m/sec LVIDs 2D 2.9 2.1 - 4.1 cm AV Peak PG 9.0 mmHg FS 2D 32.0 % AV VTI 35.7 cm LVPWd 2D 1.3 0.6 - 1.1 cm LVOT Peak [place] 1.1 m/sec IVSd 2D 1.3 0.6 - 1.1 cm LVOT Peak PG 5.0 mmHg IVS/LVPW 2D 1.0 MV E Peak [place] 1.2 m/sec EDV 2D 76.8 cm3 MV A Peak [place] 0.8 m/sec ESV 2D 24.1 cm3 MV E/A 1.5 EF 2D 60.0 50.0 - 65.0 % MV Decel Time 225 msec LVOT Diam 1.9 cm MV E/A 1.5 LVOT Area 2.8 cm2 MR Peak PG 49.0 mmHg MR Peak [place] 3.5 m/sec TR Peak [place] 2.8 m/sec TR Peak PG 32.0 mmHg RVSP 35.0 mmHg RA Pressure 3.0 Findings Left Ventricle: Normal left ventricular systolic function. Normal left ventricular cavity size. Mild concentric left ventricular hypertrophy. Ejection fraction is visually estimated at 65 %. Tissue Doppler/Mitral Doppler indices are within normal limits. Right Ventricle: Normal right ventricular size. Normal right ventricular systolic function. Left Atrium: There is mild enlargement of left atrium. Right Atrium: The right atrium is normal in size. Mitral Valve: Normal appearance of the mitral valve. Mild mitral valve regurgitation. Aortic Valve: Normal appearance of the aortic valve. No significant aortic stenosis with trivial insufficiency by color. Tricuspid Valve: Normal appearance of the tricuspid valve. Normal right ventricular systolic pressure. Estimated peak PA systolic pressure 35 mmHg. Pulmonic Valve: Normal pulmonic valve appearance. Pericardium: Normal pericardium with no significant pericardial effusion. Aorta: Normal aortic root. IVC: Normal size and normal respiratory collapse consistent with normal right atrial pressure. Conclusions 1.Normal left ventricular systolic function. Normal left ventricular cavity size. Mild concentric left ventricular hypertrophy. Ejection fraction is visually estimated at 65 %. Tissue Doppler/Mitral Doppler indices are within normal limits. 2.There is mild enlargement of left atrium. 3.Normal appearance of the mitral valve. Mild mitral valve regurgitation. 4.Normal appearance of the aortic valve. No significant aortic stenosis with trivial insufficiency by color. 5.Normal appearance of the tricuspid valve. Normal right ventricular systolic pressure. Estimated peak PA systolic pressure 35 mmHg. 6.Normal size and normal respiratory collapse consistent with normal right atrial pressure. Electronically Signed By: Quentin Fairchild 19-Mar-2017 17:23:56 -0800 Patient Name: CALEB GIBSON Study Date: 18-Mar-2017 [id number]
[2017-03-19] MEDS: LEVOFLOXACIN 500MG/D5W (PMX) 250 ML IV SCH ×2 (17:31→21:23)
[2017-03-19] MEDS: DOCUSATE SODIUM 100 MG CAP PO SCH (17:39)
[2017-03-19] MEDS: ATORVASTATIN 10 MG TAB PO SCH (21:24)
[2017-03-19] MEDS: MONTELUKAST 10 MG TAB PO SCH (21:24)
[2017-03-20] VITALS (14 sets, daily range): BP systolic 116–145; BP diastolic 55–75; PULSE 62–78; RESP 18–22
[2017-03-20] MEDS: METHYLPREDNISOLONE 125 MG INJ IV SCH ×2 (00:25→05:51)
[2017-03-20] MEDS: ALBUTEROL/IPRATROPIUM (NEB) 3 ML AMP NEB SCH ×6 (01:43→20:55)
[2017-03-20] MEDS: ACCU-CHEK XX SCH (02:00)
[2017-03-20] MEDS: PANTOPRAZOLE (EC) 40 MG TAB PO SCH (05:51)
[2017-03-20] MEDS: DOCUSATE SODIUM 100 MG CAP PO SCH ×2 (05:51→09:44)
[2017-03-20] MEDS: INSULIN ASPART [NOVOLOG] 3 ML PEN SC SCH ×4 (08:19→21:00)
[2017-03-20 08:20] LABS: ABNORMAL IP MESSAGE 1; BASOPHILS % 0.1 % (0.0-2.0); HEMATOCRIT 33.7 % (37.0-47.0); HEMOGLOBIN 10.5 g/dl (12.0-16.0); LYMPHOCYTES # 0.5 10^3/ul (0.8-2.9); LYMPHOCYTES % 5.3 % (15.0-51.0); MEAN CORPUSCULAR HEMOGLOBIN 30.3 pg (29.0-33.0); MEAN CORPUSCULAR HGB CONC 31.2 g/dl (32.0-37.0); MEAN CORPUSCULAR VOLUME 97.1 fl (82.0-101.0); MEAN PLATELET VOLUME 11.7 fl (7.4-10.4); MONOCYTE # 0.5 10^3/ul (0.3-0.9); MONOCYTES % 5.2 % (0.0-11.0); NEUTROPHIL # 8.1 10^3/ul (1.6-7.5); NEUTROPHILS % 88.1 % (39.0-77.0); PLATELET COUNT 211 10^3/UL (140-415); RED BLOOD COUNT 3.47 10^6/ul (4.20-5.40); RED CELL DISTRIBUTION WIDTH 13.7 % (11.5-14.5); WHITE BLOOD COUNT 9.2 10^3/ul (4.8-10.8)
[2017-03-20 08:24] LABS: POSITIVE DIFF @See below
[2017-03-20 08:55] LABS: ALBUMIN 3.3 g/dl (3.3-4.9); CALCIUM 8.6 mg/dl (8.4-10.2); CREATININE 0.73 mg/dl (0.44-1.00); MAGNESIUM 2.4 mg/dl (1.7-2.5); POTASSIUM 4.8 mmol/L (3.5-5.1)
[2017-03-20] MEDS: ENOXAPARIN 40 MG/0.4 ML SYG SC SCH (09:00)
[2017-03-20] MEDS: TIOTROPIUM 18 MCG CAPSULE INHA DEV INH SCH (09:00)
[2017-03-20] MEDS: SALMETEROL/FLUTICASONE 250/50 INHA INH SCH ×2 (09:43→21:00)
[2017-03-20] MEDS: SPIRONOLACTONE 25 MG TAB PO SCH (09:44)
[2017-03-20] MEDS: FUROSEMIDE 20 MG INJ IV SCH (09:44)
[2017-03-20] MEDS: TERBINAFINE 250 MG TAB PO SCH ×2 (09:44→21:00)
[2017-03-20] MEDS: SOD FERRIC GLUC COMPLX 125 MG in SOD CHLORIDE 0.9% 100 ML IVPB SCH (11:00)
[2017-03-20] MEDS ORDERED: LORAZEPAM 2 MG INJ IV ONE (11:30)
--- NOTE | 2017-03-20 11:36 | CONS ---
Date/Time of Note Date/Time of Note DATE: 03/20/17 TIME: 11:35 Consult Date/Type/Reason Admit Date/Time Mar 17, 2017 at 17:44 Type of Consultation: Pulmonary Subjective Patient anxious and agitated this morning. Stating she wants to go home. Continues Ventimask oxygen. Objective Vital Signs Date Time Temp Pulse Resp B/P Pulse Ox O2 Delivery O2 Flow Rate FiO2 03/20/17 11:33 98.6 71 20 118/55 90 03/20/17 09:09 Venti Mask 15.0 50 Intake and Output 03/19/17 03/19/17 03/20/17 15:00 23:00 07:00 Intake Total 250 ml 240 ml Balance 250 ml 240 ml Exam PHYSICAL EXAMINATION: GENERAL: Elderly lady on Ventimask oxygen. VITAL SIGNS: As above NECK: Supple. No JVD or lymphadenopathy. CARDIAC: S1, S2, no added sounds or murmurs. CHEST: Diminished air entry bilaterally. ABDOMEN: Soft, nontender. No guarding or rebound. EXTREMITIES: No cyanosis, clubbing, edema. NEUROLOGIC: No focal deficits. Results/Medications Result Diagram: 03/20/17 0736 03/20/17 0736 Results 24 hrs Laboratory Tests Test 03/19/17 11:37 03/19/17 17:14 03/19/17 21:21 03/20/17 07:36 Bedside Glucose 166 157 154 White Blood Count 9.2 Red Blood Count 3.47 L Hemoglobin 10.5 L Hematocrit 33.7 L Mean Corpuscular Volume 97.1 Mean Corpuscular Hemoglobin 30.3 Mean Corpuscular Hemoglobin Concent 31.2 L Red Cell Distribution Width 13.7 Platelet Count 211 Mean Platelet Volume 11.7 H Neutrophils % 88.1 H Lymphocytes % 5.3 L Monocytes % 5.2 Eosinophils % 0.0 Basophils % 0.1 Nucleated Red Blood Cells % 0.0 Neutrophils # 8.1 H Lymphocytes # 0.5 L Monocytes # 0.5 Eosinophils # 0.0 Basophils # 0.0 Nucleated Red Blood Cells # 0.0 Sodium Level 138 Potassium Level 4.8 Chloride Level 101 Carbon Dioxide Level 30 Anion Gap 12 Blood Urea Nitrogen 31 H Creatinine 0.73 Glucose Level 161 Calcium Level 8.6 Phosphorus Level 4.0 Magnesium Level 2.4 Albumin 3.3 Test 03/20/17 07:44 Bedside Glucose 158 Medications Current Medications Ondansetron HCl (Zofran Inj) 4 mg Q6H PRN IV NAUSEA AND/OR VOMITING; Start at 18:30 Acetaminophen (Tylenol Tab) 650 mg Q6H PRN PO PAIN LEVEL 1-3 OR FEVER; Start 03/17/17 at 18:30 Magnesium Hydroxide (Milk Of Mag) 30 ml DAILY PRN PO CONSTIPATION; Start 03/17 at 18:30 Pantoprazole (Protonix Tab) 40 mg DAILY@06 PO Last administered on 03/20/17 05:51; Admin Dose 40 MG; Start 03/18/17 at 06:00 Enoxaparin Sodium (Lovenox) 40 mg DAILY SC Last administered on 03/19/17 08: 50; Admin Dose 40 MG; Start 03/18/17 at 09:00 Methylprednisolone Sodium Succinate 60 mg 60 mg Q6 IV Last administered on 05:51; Admin Dose 60 MG; Start 03/18/17 at 00:00 Ferric Sodium Gluconate Complex/ Sodium Chloride (Ferrlecit/NS) 110 ml @ 100 mls/hr Q24H IVPB Last administered on 03/19/17 11:34; Admin Dose 100 MLS/HR; Start 03/18/17 at 11:00; Stop 03/20/17 at 12:05 Tiotropium [place] (Spiriva) 1 inh DAILY INH Last administered on 03/18/17 11 :52; Admin Dose 1 INH; Start 03/18/17 at 10:00 Salmeterol Xinafoate/ Fluticasone (Advair 250/50 Diskus) 1 inh BID INH Last administered on 03/20/17 09:43; Admin Dose 1 INH; Start 03/18/17 at 10:00 Montelukast Sodium (Singulair) 10 mg HS PO Last administered on 03/19/17 21: 24; Admin Dose 10 MG; Start 03/18/17 at 21:00 Diagnostic Test (Pha) (Accu-Chek) 1 ea 02 XX ; Start 03/19/17 at 02:00 Losartan Potassium (Cozaar) 100 mg DAILY PO Last administered on 03/18/17 10: 06; Admin Dose 100 MG; Start 03/18/17 at 09:30; Status Future Hold Spironolactone (Aldactone) 25 mg DAILY PO Last administered on 03/20/17 09:44 ; Admin Dose 25 MG; Start 03/18/17 at 09:30 Atorvastatin Calcium (Lipitor) 10 mg HS PO Last administered on 03/19/17 21: 24; Admin Dose 10 MG; Start 03/18/17 at 21:00 Terbinafine HCl (Lamisil) 250 mg BID PO Last administered on 03/20/17 09:44; Admin Dose 250 MG; Start 03/18/17 at 09:30; Stop 03/25/17 at 09:29 Miscellaneous Information 1 ea NOTE XX ; Start 03/18/17 at 10:00 Glucose (Glutose) 15 gm Q15M PRN PO DECREASED GLUCOSE; Start 03/18/17 at 10:00 Glucose (Glutose) 22.5 gm Q15M PRN PO DECREASED GLUCOSE; Start 03/18/17 at 10: 00 Dextrose (D50w Syringe) 25 ml Q15M PRN IV DECREASED GLUCOSE; Start 03/18/17 at 10:00 Dextrose (D50w Syringe) 50 ml Q15M PRN IV DECREASED GLUCOSE; Start 03/18/17 at 10:00 Glucagon (Glucagen) 1 mg Q15M PRN IM DECREASED GLUCOSE; Start 03/18/17 at 10: 00 Glucose (Glutose) 15 gm Q15M PRN BUCCAL DECREASED GLUCOSE; Start 03/18/17 at 10:00 Docusate Sodium (Colace) 100 mg Q12H PO Last administered on 03/20/17 09:44; Admin Dose 100 MG; Start 03/19/17 at 18:30 Furosemide (Lasix) 20 mg DAILY IV Last administered on 03/20/17 09:44; Admin Dose 20 MG; Start 03/20/17 at 09:00; Stop 03/23/17 at 08:59 Levofloxacin (Levaquin) 500 mg DAILY@06 PO ; Start 03/20/17 at 10:00 Lorazepam (Ativan) 0.5 mg ONCE ONCE IV ; Start 03/20/17 at 11:30; Stop at 11:31; Status UNV Assessment/Plan Chief Complaint/Hosp Course IMPRESSION AND PLAN: 1. Hypoxemic hypercapnic respiratory failure 2. Chronic obstructive pulmonary disease with acute hypoxemic respiratory failure. 3. Underlying history of tobacco use. 4. Encephalopathy toxic metabolic Plan 1. Steroids. 2. Bronchodilators. 3. Antibiotics continues Levaquin. 4. Outpatient pulmonary function test. 5. Advised on smoking cessation. 6. Pneumonia and influenza vaccinations. Prognosis remains guarded. Problems: DEMI YARBROUGH MD, [facility] Mar 20, 2017 11:36
[2017-03-20] MEDS: LEVOFLOXACIN 500 MG TAB PO SCH (11:42)
[2017-03-20] MEDS: METHYLPREDNISOLONE 40 MG INJ IV SCH (21:00)
[2017-03-20] MEDS: ATORVASTATIN 10 MG TAB PO SCH (21:00)
[2017-03-20] MEDS: MONTELUKAST 10 MG TAB PO SCH (21:00)
[2017-03-21] VITALS: BP 128/62; RESP 20
[2017-03-21] MEDS: ALBUTEROL/IPRATROPIUM (NEB) 3 ML AMP NEB SCH ×6 (00:18→19:49)
[2017-03-21 00:35] VITALS: PULSE 77
[2017-03-21] MEDS: ACCU-CHEK XX SCH (02:00)
[2017-03-21 04:41] VITALS: BP 131/64; RESP 19
[2017-03-21] MEDS: PANTOPRAZOLE (EC) 40 MG TAB PO SCH (06:00)
[2017-03-21] MEDS: LEVOFLOXACIN 500 MG TAB PO SCH (06:00)
[2017-03-21] MEDS: DOCUSATE SODIUM 100 MG CAP PO SCH ×2 (06:20→18:02)
[2017-03-21] MEDS: INSULIN ASPART [NOVOLOG] 3 ML PEN SC SCH ×4 (07:55→21:00)
[2017-03-21] MEDS: SALMETEROL/FLUTICASONE 250/50 INHA INH SCH ×2 (08:30→20:10)
[2017-03-21] MEDS: SPIRONOLACTONE 25 MG TAB PO SCH (08:31)
[2017-03-21] MEDS: TIOTROPIUM 18 MCG CAPSULE INHA DEV INH SCH (08:31)
[2017-03-21] MEDS: FUROSEMIDE 20 MG INJ IV SCH (08:31)
[2017-03-21] MEDS: METHYLPREDNISOLONE 40 MG INJ IV SCH ×2 (08:31→20:07)
[2017-03-21] MEDS: ENOXAPARIN 40 MG/0.4 ML SYG SC SCH (08:31)
[2017-03-21] MEDS: TERBINAFINE 250 MG TAB PO SCH ×2 (08:31→21:00)
--- NOTE | 2017-03-21 09:24 | EN ---
Date/Time of Note Date/Time of Note DATE: 03/21/17 TIME: 09:22 Event Note Medicine Medicine Event Note LATE PROGRESS NOTE DATE OF SERVICE: 03/20/17 SUBJECTIVE: still wants to leave, still on 8L via face mask, not ambulating yet per nurses Vital Signs Date Time Temp Pulse Resp B/P Pulse Ox O2 Delivery O2 Flow Rate FiO2 03/20/17 11:33 98.6 71 20 118/55 90 03/20/17 09:09 Venti Mask 15.0 50 Intake and Output 03/19/17 03/19/17 03/20/17 15:00 23:00 07:00 Intake Total 250 ml 240 ml Balance 250 ml 240 ml Exam PHYSICAL EXAMINATION: GENERAL: Elderly lady on Ventimask oxygen. VITAL SIGNS: As above NECK: Supple. No JVD or lymphadenopathy. CARDIAC: S1, S2, no added sounds or murmurs. CHEST: Diminished air entry bilaterally. ABDOMEN: Soft, nontender. No guarding or rebound. EXTREMITIES: No cyanosis, clubbing, edema. NEUROLOGIC: No focal deficits. Results/Medications Result Diagram: 03/20/17 0736 03/20/17 0736 Results 24 hrs Laboratory Tests Test 03/19/17 11:37 03/19/17 17:14 03/19/17 21:21 03/20/17 07:36 Bedside Glucose 166 157 154 White Blood Count 9.2 Red Blood Count 3.47 L Hemoglobin 10.5 L Hematocrit 33.7 L Mean Corpuscular Volume 97.1 Mean Corpuscular Hemoglobin 30.3 Mean Corpuscular Hemoglobin Concent 31.2 L Red Cell Distribution Width 13.7 Platelet Count 211 Mean Platelet Volume 11.7 H Neutrophils % 88.1 H Lymphocytes % 5.3 L Monocytes % 5.2 Eosinophils % 0.0 Basophils % 0.1 Nucleated Red Blood Cells % 0.0 Neutrophils # 8.1 H Lymphocytes # 0.5 L Monocytes # 0.5 Eosinophils # 0.0 Basophils # 0.0 Nucleated Red Blood Cells # 0.0 Sodium Level 138 Potassium Level 4.8 Chloride Level 101 Carbon Dioxide Level 30 Anion Gap 12 Blood Urea Nitrogen 31 H Creatinine 0.73 Glucose Level 161 Calcium Level 8.6 Phosphorus Level 4.0 Magnesium Level 2.4 Albumin 3.3 Test 03/20/17 07:44 Bedside Glucose 158 Medications Current Medications Ondansetron HCl (Zofran Inj) 4 mg Q6H PRN IV NAUSEA AND/OR VOMITING; Start at 18:30 Acetaminophen (Tylenol Tab) 650 mg Q6H PRN PO PAIN LEVEL 1-3 OR FEVER; Start 03/17/17 at 18:30 Magnesium Hydroxide (Milk Of Mag) 30 ml DAILY PRN PO CONSTIPATION; Start 03/17 at 18:30 Pantoprazole (Protonix Tab) 40 mg DAILY@06 PO Last administered on 03/20/17 05:51; Admin Dose 40 MG; Start 03/18/17 at 06:00 Enoxaparin Sodium (Lovenox) 40 mg DAILY SC Last administered on 03/19/17 08: 50; Admin Dose 40 MG; Start 03/18/17 at 09:00 Methylprednisolone Sodium Succinate 60 mg 60 mg Q6 IV Last administered on 05:51; Admin Dose 60 MG; Start 03/18/17 at 00:00 Ferric Sodium Gluconate Complex/ Sodium Chloride (Ferrlecit/NS) 110 ml @ 100 mls/hr Q24H IVPB Last administered on 03/19/17 11:34; Admin Dose 100 MLS/HR; Start 03/18/17 at 11:00; Stop 03/20/17 at 12:05 Tiotropium [place] (Spiriva) 1 inh DAILY INH Last administered on 03/18/17 11 :52; Admin Dose 1 INH; Start 03/18/17 at 10:00 Salmeterol Xinafoate/ Fluticasone (Advair 250/50 Diskus) 1 inh BID INH Last administered on 03/20/17 09:43; Admin Dose 1 INH; Start 03/18/17 at 10:00 Montelukast Sodium (Singulair) 10 mg HS PO Last administered on 03/19/17 21: 24; Admin Dose 10 MG; Start 03/18/17 at 21:00 Diagnostic Test (Pha) (Accu-Chek) 1 ea 02 XX ; Start 03/19/17 at 02:00 Losartan Potassium (Cozaar) 100 mg DAILY PO Last administered on 03/18/17 10: 06; Admin Dose 100 MG; Start 03/18/17 at 09:30; Status Future Hold Spironolactone (Aldactone) 25 mg DAILY PO Last administered on 03/20/17 09:44 ; Admin Dose 25 MG; Start 03/18/17 at 09:30 Atorvastatin Calcium (Lipitor) 10 mg HS PO Last administered on 03/19/17 21: 24; Admin Dose 10 MG; Start 03/18/17 at 21:00 Terbinafine HCl (Lamisil) 250 mg BID PO Last administered on 03/20/17 09:44; Admin Dose 250 MG; Start 03/18/17 at 09:30; Stop 03/25/17 at 09:29 Miscellaneous Information 1 ea NOTE XX ; Start 03/18/17 at 10:00 Glucose (Glutose) 15 gm Q15M PRN PO DECREASED GLUCOSE; Start 03/18/17 at 10:00 Glucose (Glutose) 22.5 gm Q15M PRN PO DECREASED GLUCOSE; Start 03/18/17 at 10: 00 Dextrose (D50w Syringe) 25 ml Q15M PRN IV DECREASED GLUCOSE; Start 03/18/17 at 10:00 Dextrose (D50w Syringe) 50 ml Q15M PRN IV DECREASED GLUCOSE; Start 03/18/17 at 10:00 Glucagon (Glucagen) 1 mg Q15M PRN IM DECREASED GLUCOSE; Start 03/18/17 at 10: 00 Glucose (Glutose) 15 gm Q15M PRN BUCCAL DECREASED GLUCOSE; Start 03/18/17 at 10:00 Docusate Sodium (Colace) 100 mg Q12H PO Last administered on 03/20/17 09:44; Admin Dose 100 MG; Start 03/19/17 at 18:30 Furosemide (Lasix) 20 mg DAILY IV Last administered on 03/20/17 09:44; Admin Dose 20 MG; Start 03/20/17 at 09:00; Stop 03/23/17 at 08:59 Levofloxacin (Levaquin) 500 mg DAILY@06 PO ; Start 03/20/17 at 10:00 Lorazepam (Ativan) 0.5 mg ONCE ONCE IV ; Start 03/20/17 at 11:30; Stop at 11:31; Status UNV Assessment/Plan Assessment/Plan 1 acute hypoxic h ypercapneic respiratory failure secondary to #2 requiring BiPAP 2 end stage COPD with exacerbation 3 diastolic CHF 4 chronic extensive heavy tobacco use 5 hypertension 6 dyslipidemia PLAN: no state to be discharged She states its the board and adult live in caregiver who sells cigarettes Continue steroids / bronchodilators and supportive care Wean O2 as much as possible GHISLAINE PABLO Mar 21, 2017 09:24
--- NOTE | 2017-03-21 11:52 | CONS ---
Date/Time of Note Date/Time of Note DATE: 03/21/17 TIME: 11:46 Consult Date/Type/Reason Admit Date/Time Mar 17, 2017 at 17:44 Type of Consultation: Pulmonary Subjective Patient sleeping this morning comfortable less agitated. No respiratory distress. Objective Vital Signs Date Time Temp Pulse Resp B/P Pulse Ox O2 Delivery O2 Flow Rate FiO2 03/21/17 04:58 24 77 21 03/21/17 04:41 98.2 78 131/64 03/20/17 16:46 15.0 03/20/17 16:33 Venti Mask Intake and Output 03/20/17 03/20/17 03/21/17 15:00 23:00 07:00 Intake Total 820 ml 450 ml Balance 820 ml 450 ml Exam PHYSICAL EXAMINATION: GENERAL: Elderly lady on nasal cannula oxygen VITAL SIGNS: As above NECK: Supple. No JVD or lymphadenopathy. CARDIAC: S1, S2, no added sounds or murmurs. CHEST: Diminished air entry bilaterally. ABDOMEN: Soft, nontender. No guarding or rebound. EXTREMITIES: No cyanosis, clubbing, edema. NEUROLOGIC: No focal deficits. Results/Medications Result Diagram: 03/20/17 0736 03/20/17 0736 Medications Current Medications Ondansetron HCl (Zofran Inj) 4 mg Q6H PRN IV NAUSEA AND/OR VOMITING; Start at 18:30 Acetaminophen (Tylenol Tab) 650 mg Q6H PRN PO PAIN LEVEL 1-3 OR FEVER; Start 03/17/17 at 18:30 Magnesium Hydroxide (Milk Of Mag) 30 ml DAILY PRN PO CONSTIPATION; Start 03/17 at 18:30 Pantoprazole (Protonix Tab) 40 mg DAILY@06 PO Last administered on 03/20/17 05:51; Admin Dose 40 MG; Start 03/18/17 at 06:00 Enoxaparin Sodium (Lovenox) 40 mg DAILY SC Last administered on 03/19/17 08: 50; Admin Dose 40 MG; Start 03/18/17 at 09:00 Tiotropium [place] (Spiriva) 1 inh DAILY INH Last administered on 03/18/17 11 :52; Admin Dose 1 INH; Start 03/18/17 at 10:00 Salmeterol Xinafoate/ Fluticasone (Advair 250/50 Diskus) 1 inh BID INH Last administered on 03/20/17 09:43; Admin Dose 1 INH; Start 03/18/17 at 10:00 Montelukast Sodium (Singulair) 10 mg HS PO Last administered on 03/19/17 21: 24; Admin Dose 10 MG; Start 03/18/17 at 21:00 Diagnostic Test (Pha) (Accu-Chek) 1 ea 02 XX ; Start 03/19/17 at 02:00 Losartan Potassium (Cozaar) 100 mg DAILY PO Last administered on 03/18/17 10: 06; Admin Dose 100 MG; Start 03/18/17 at 09:30; Status Future Hold Spironolactone (Aldactone) 25 mg DAILY PO Last administered on 03/20/17 09:44 ; Admin Dose 25 MG; Start 03/18/17 at 09:30 Atorvastatin Calcium (Lipitor) 10 mg HS PO Last administered on 03/19/17 21: 24; Admin Dose 10 MG; Start 03/18/17 at 21:00 Terbinafine HCl (Lamisil) 250 mg BID PO Last administered on 03/20/17 09:44; Admin Dose 250 MG; Start 03/18/17 at 09:30; Stop 03/25/17 at 09:29 Miscellaneous Information 1 ea NOTE XX ; Start 03/18/17 at 10:00 Glucose (Glutose) 15 gm Q15M PRN PO DECREASED GLUCOSE; Start 03/18/17 at 10:00 Glucose (Glutose) 22.5 gm Q15M PRN PO DECREASED GLUCOSE; Start 03/18/17 at 10: 00 Dextrose (D50w Syringe) 25 ml Q15M PRN IV DECREASED GLUCOSE; Start 03/18/17 at 10:00 Dextrose (D50w Syringe) 50 ml Q15M PRN IV DECREASED GLUCOSE; Start 03/18/17 at 10:00 Glucagon (Glucagen) 1 mg Q15M PRN IM DECREASED GLUCOSE; Start 03/18/17 at 10: 00 Glucose (Glutose) 15 gm Q15M PRN BUCCAL DECREASED GLUCOSE; Start 03/18/17 at 10:00 Docusate Sodium (Colace) 100 mg Q12H PO Last administered on 03/20/17 09:44; Admin Dose 100 MG; Start 12/18/17 at 18:30 Furosemide (Lasix) 20 mg DAILY IV Last administered on 03/20/17 09:44; Admin Dose 20 MG; Start 03/20/17 at 09:00; Stop 03/23/17 at 08:59 Levofloxacin (Levaquin) 500 mg DAILY@06 PO Last administered on 03/20/17 11: 42; Admin Dose 500 MG; Start 03/20/17 at 10:00 Methylprednisolone Sodium Succinate (Solu-Medrol) 40 mg Q12 IV ; Start at 21:00 Assessment/Plan Chief Complaint/Hosp Course IMPRESSION 1. Hypoxemic hypercapnic respiratory failure 2. Chronic obstructive pulmonary disease with acute hypoxemic respiratory failure. 3. Underlying history of tobacco use. 4. Encephalopathy toxic metabolic appears to be improving. Plan 1. Steroids. 2. Bronchodilators. 3. Antibiotics continues Levaquin. 4. Outpatient pulmonary function test. 5. Advised on smoking cessation. 6. Pneumonia and influenza vaccinations. Transfer to [facility] Problems: DEMI YARBROUGH MD, [facility] Mar 21, 2017 11:52
--- NOTE | 2017-03-21 14:31 | PN ---
Date/Time of Note Date/Time of Note DATE: 03/21/17 TIME: 14:25 Assessment/Plan VTE Prophylaxis VTE Prophylaxis Intervention: LMWH Lines/Catheters IV C[facility]ter Type [facility] Saline Lock Urinary Cath still in place: No Assessment/Plan Assessment/Plan 1 acute hypoxic h ypercapneic respiratory failure secondary to #2 requiring BiPAP 2 end stage COPD with exacerbation 3 diastolic CHF 4 chronic extensive heavy tobacco use 5 hypertension 6 dyslipidemia PLAN: patient still in significant resp decompensation and in no state to leave, however she is refusing aggressively all form of treatment. We have been unable to even find someone to come pick her up from the hospital. I am uncomfortable discharging patient via ambulance in her clinical state. Hence at this point we will respect her wishes, will not attempt to force her to receive any form of treatment, social work nurse has been called to see if we can obtain or find some family member who can help us in this Situation. If we are unsuccessful we will have to contact the hospital ethics committee, and follow their recommendations. Clinical care time today have been more than half an hour. Subjective 24 Hr Interval Summary Free Text/Dictation Patient very agitated this morning. Patient fully dressed and wanting to leave the hospital. Unfortunately patient will not even speak with me. Patient visibly in respiratory distress with audible wheezes, however when I attempt to put patient on oxygen, patient begins to yell " NO"!! Nurse is also reporting that patient has refused telemetry monitoring, she has refused oxygen, and is refusing all medications and labs. I attempted to discuss implications of her actions and possibly recommend hospice if that is what patient wants, however patient refuses to communicate with me. I made multiple attempts. Patient also refused physical exam, patient has clothed that herself in foul-smelling clothes. Patient seems slightly more confused than yesterday however, unable to do a good exam because she is noncooperative. At this time I believe the only choice is to try and reach a family member, or someone else who can make decisions on her behalf. The patient really does not want any further therapy, she is a good candidate for hospice care, and at that time I can safely discharge her. However at this time, I am uncertain on how to proceed. Exam/Review of Systems Vital Signs Vitals Vital Signs Date Time Temp Pulse Resp B/P Pulse Ox O2 Delivery O2 Flow Rate FiO2 03/21/17 04:58 24 77 21 03/21/17 04:41 98.2 78 131/64 03/20/17 16:46 15.0 03/20/17 16:33 Venti Mask Intake and Output 03/20/17 03/20/17 03/21/17 14:59 22:59 06:59 Intake Total 820 ml 450 ml Balance 820 ml 450 ml Exam see subjective. Results Result Diagram: 03/20/17 0736 03/20/17 0736 Medications Medications Current Medications Ondansetron HCl (Zofran Inj) 4 mg Q6H PRN IV NAUSEA AND/OR VOMITING; Start at 18:30 Acetaminophen (Tylenol Tab) 650 mg Q6H PRN PO PAIN LEVEL 1-3 OR FEVER; Start 03/17/17 at 18:30 Magnesium Hydroxide (Milk Of Mag) 30 ml DAILY PRN PO CONSTIPATION; Start 03/17 at 18:30 Pantoprazole (Protonix Tab) 40 mg DAILY@06 PO Last administered on 03/20/17 05:51; Admin Dose 40 MG; Start 03/18/17 at 06:00 Enoxaparin Sodium (Lovenox) 40 mg DAILY SC Last administered on 03/19/17 08: 50; Admin Dose 40 MG; Start 03/18/17 at 09:00 Tiotropium [place] (Spiriva) 1 inh DAILY INH Last administered on 03/18/17 11 :52; Admin Dose 1 INH; Start 03/18/17 at 10:00 Salmeterol Xinafoate/ Fluticasone (Advair 250/50 Diskus) 1 inh BID INH Last administered on 03/20/17 09:43; Admin Dose 1 INH; Start 03/18/17 at 10:00 Montelukast Sodium (Singulair) 10 mg HS PO Last administered on 03/19/17 21: 24; Admin Dose 10 MG; Start 03/18/17 at 21:00 Diagnostic Test (Pha) (Accu-Chek) 1 ea 02 XX ; Start 03/19/17 at 02:00 Losartan Potassium (Cozaar) 100 mg DAILY PO Last administered on 03/18/17 10: 06; Admin Dose 100 MG; Start 03/18/17 at 09:30; Status Future Hold Spironolactone (Aldactone) 25 mg DAILY PO Last administered on 03/20/17 09:44 ; Admin Dose 25 MG; Start 03/18/17 at 09:30 Atorvastatin Calcium (Lipitor) 10 mg HS PO Last administered on 03/19/17 21: 24; Admin Dose 10 MG; Start 03/18/17 at 21:00 Terbinafine HCl (Lamisil) 250 mg BID PO Last administered on 03/20/17 09:44; Admin Dose 250 MG; Start 03/18/17 at 09:30; Stop 03/25/17 at 09:29 Miscellaneous Information 1 ea NOTE XX ; Start 03/18/17 at 10:00 Glucose (Glutose) 15 gm Q15M PRN PO DECREASED GLUCOSE; Start 03/18/17 at 10:00 Glucose (Glutose) 22.5 gm Q15M PRN PO DECREASED GLUCOSE; Start 03/18/17 at 10: 00 Dextrose (D50w Syringe) 25 ml Q15M PRN IV DECREASED GLUCOSE; Start 03/18/17 at 10:00 Dextrose (D50w Syringe) 50 ml Q15M PRN IV DECREASED GLUCOSE; Start 03/18/17 at 10:00 Glucagon (Glucagen) 1 mg Q15M PRN IM DECREASED GLUCOSE; Start 03/18/17 at 10: 00 Glucose (Glutose) 15 gm Q15M PRN BUCCAL DECREASED GLUCOSE; Start 03/18/17 at 10:00 Docusate Sodium (Colace) 100 mg Q12H PO Last administered on 03/20/17 09:44; Admin Dose 100 MG; Start 03/19/17 at 18:30 Furosemide (Lasix) 20 mg DAILY IV Last administered on 03/20/17 09:44; Admin Dose 20 MG; Start 03/20/17 at 09:00; Stop 03/23/17 at 08:59 Levofloxacin (Levaquin) 500 mg DAILY@06 PO Last administered on 03/20/17 11: 42; Admin Dose 500 MG; Start 03/20/17 at 10:00 Methylprednisolone Sodium Succinate (Solu-Medrol) 40 mg Q12 IV ; Start at 21:00 GHISLAINE PABLO Mar 21, 2017 14:31
[2017-03-21] MEDS ORDERED: FURO40TA4 PO (16:25)
[2017-03-21] MEDS ORDERED: LOSA1TAB28 PO (16:25)
[2017-03-21] MEDS ORDERED: RISP3TAB PO (16:25)
[2017-03-21] MEDS ORDERED: AMLO-147 PO (16:25)
[2017-03-21] MEDS ORDERED: CLOB1KT.5 TP (16:25)
[2017-03-21] MEDS ORDERED: NICO-491 TD (16:25)
[2017-03-21] MEDS ORDERED: BUDE6HFA INHALATION (16:25)
[2017-03-21] MEDS ORDERED: CICL544C TP (16:25)
[2017-03-21] MEDS ORDERED: ATOR10TA65 PO (16:25)
[2017-03-21 18:18] VITALS: BP 148/89; RESP 20
[2017-03-21 20:00] VITALS: PULSE 100
[2017-03-21] MEDS: ATORVASTATIN 10 MG TAB PO SCH (21:00)
[2017-03-21] MEDS: RISPERIDONE 2 MG TAB PO SCH (21:00)
[2017-03-21] MEDS: MONTELUKAST 10 MG TAB PO SCH (21:00)
[2017-03-21 23:34] VITALS: BP 164/83; RESP 18
[2017-03-22] MEDS: ALBUTEROL/IPRATROPIUM (NEB) 3 ML AMP NEB SCH ×5 (00:40→20:11)
[2017-03-22] MEDS: ACCU-CHEK XX SCH (02:00)
[2017-03-22 04:00] VITALS: PULSE 87
[2017-03-22] MEDS: DOCUSATE SODIUM 100 MG CAP PO SCH ×2 (06:30→20:01)
[2017-03-22] MEDS: PANTOPRAZOLE (EC) 40 MG TAB PO SCH (06:30)
[2017-03-22] MEDS: LEVOFLOXACIN 500 MG TAB PO SCH (06:30)
[2017-03-22] MEDS: INSULIN ASPART [NOVOLOG] 3 ML PEN SC SCH ×4 (07:55→22:15)
[2017-03-22 08:00] VITALS: BP 142/71; PULSE 68; RESP 24
[2017-03-22] MEDS: TERBINAFINE 250 MG TAB PO SCH ×2 (09:00→22:11)
[2017-03-22] MEDS: FUROSEMIDE 20 MG INJ IV SCH (09:00)
[2017-03-22] MEDS: ENOXAPARIN 40 MG/0.4 ML SYG SC SCH (09:00)
[2017-03-22] MEDS: RISPERIDONE 2 MG TAB PO SCH ×2 (09:00→22:14)
[2017-03-22] MEDS: TIOTROPIUM 18 MCG CAPSULE INHA DEV INH SCH (09:00)
[2017-03-22] MEDS: SALMETEROL/FLUTICASONE 250/50 INHA INH SCH ×2 (09:00→22:10)
[2017-03-22] MEDS: METHYLPREDNISOLONE 40 MG INJ IV SCH ×2 (09:00→22:14)
[2017-03-22] MEDS: SPIRONOLACTONE 25 MG TAB PO SCH (09:00)
[2017-03-22] MEDS: FUROSEMIDE 40 MG TAB PO SCH (10:00)
[2017-03-22] MEDS ORDERED: NICOTINE TD SCH (10:00)
--- NOTE | 2017-03-22 11:44 | CONS ---
Date/Time of Note Date/Time of Note DATE: 03/22/17 TIME: 11:37 Consult Date/Type/Reason Admit Date/Time Mar 17, 2017 at 17:44 Type of Consultation: Pulmonary Subjective Continues ventimask o2, less agitated, Objective Vital Signs Date Time Temp Pulse Resp B/P Pulse Ox O2 Delivery O2 Flow Rate FiO2 03/22/17 09:04 66 26 96 Venti Mask 15.0 50 03/22/17 08:00 98.1 142/71 Intake and Output 03/21/17 03/21/17 03/22/17 15:00 23:00 07:00 Intake Total 300 ml 300 ml Balance 300 ml 300 ml Exam PHYSICAL EXAMINATION: GENERAL: Elderly lady on ventimask o2. VITAL SIGNS: As above NECK: Supple. No JVD or lymphadenopathy. CARDIAC: S1, S2, no added sounds or murmurs. CHEST: Diminished air entry bilaterally. ABDOMEN: Soft, nontender. No guarding or rebound. EXTREMITIES: No cyanosis, clubbing, edema. NEUROLOGIC: No focal deficits. Results/Medications Result Diagram: 03/20/17 0736 03/20/17 0736 Medications Current Medications Ondansetron HCl (Zofran Inj) 4 mg Q6H PRN IV NAUSEA AND/OR VOMITING; Start at 18:30 Acetaminophen (Tylenol Tab) 650 mg Q6H PRN PO PAIN LEVEL 1-3 OR FEVER; Start 03/17/17 at 18:30 Magnesium Hydroxide (Milk Of Mag) 30 ml DAILY PRN PO CONSTIPATION; Start 03/17 at 18:30 Pantoprazole (Protonix Tab) 40 mg DAILY@06 PO Last administered on 03/22/17 06:30; Admin Dose 40 MG; Start 03/18/17 at 06:00 Enoxaparin Sodium (Lovenox) 40 mg DAILY SC Last administered on 03/19/17 08: 50; Admin Dose 40 MG; Start 03/18/17 at 09:00 Tiotropium [place] (Spiriva) 1 inh DAILY INH Last administered on 03/18/17 11 :52; Admin Dose 1 INH; Start 03/18/17 at 10:00 Salmeterol Xinafoate/ Fluticasone (Advair 250/50 Diskus) 1 inh BID INH Last administered on 03/21/17 20:10; Admin Dose 1 INH; Start 03/18/17 at 10:00 Montelukast Sodium (Singulair) 10 mg HS PO Last administered on 03/19/17 21: 24; Admin Dose 10 MG; Start 03/18/17 at 21:00 Diagnostic Test (Pha) (Accu-Chek) 1 ea 02 XX ; Start 03/19/17 at 02:00 Losartan Potassium (Cozaar) 100 mg DAILY PO Last administered on 03/18/17 10: 06; Admin Dose 100 MG; Start 03/18/17 at 09:30; Status Future Hold Spironolactone (Aldactone) 25 mg DAILY PO Last administered on 03/20/17 09:44 ; Admin Dose 25 MG; Start 03/18/17 at 09:30 Atorvastatin Calcium (Lipitor) 10 mg HS PO Last administered on 03/19/17 21: 24; Admin Dose 10 MG; Start 03/18/17 at 21:00 Terbinafine HCl (Lamisil) 250 mg BID PO Last administered on 03/20/17 09:44; Admin Dose 250 MG; Start 03/18/17 at 09:30; Stop 03/25/17 at 09:29 Miscellaneous Information 1 ea NOTE XX ; Start 03/18/17 at 10:00 Glucose (Glutose) 15 gm Q15M PRN PO DECREASED GLUCOSE; Start 03/18/17 at 10:00 Glucose (Glutose) 22.5 gm Q15M PRN PO DECREASED GLUCOSE; Start 03/18/17 at 10: 00 Dextrose (D50w Syringe) 25 ml Q15M PRN IV DECREASED GLUCOSE; Start 03/18/17 at 10:00 Dextrose (D50w Syringe) 50 ml Q15M PRN IV DECREASED GLUCOSE; Start 03/18/17 at 10:00 Glucagon (Glucagen) 1 mg Q15M PRN IM DECREASED GLUCOSE; Start 03/18/17 at 10: 00 Glucose (Glutose) 15 gm Q15M PRN BUCCAL DECREASED GLUCOSE; Start 03/18/17 at 10:00 Docusate Sodium (Colace) 100 mg Q12H PO Last administered on 03/20/17 09:44; Admin Dose 100 MG; Start 03/19/17 at 18:30 Levofloxacin (Levaquin) 500 mg DAILY@06 PO Last administered on 03/22/17 06: 30; Admin Dose 500 MG; Start 03/20/17 at 10:00 Methylprednisolone Sodium Succinate (Solu-Medrol) 40 mg Q12 IV Last administered on 03/21/17 20:07; Admin Dose 40 MG; Start 03/20/17 at 21:00 Risperidone (Risperdal) 3 mg BID PO ; Start 03/21/17 at 21:00 Amlodipine Besylate (Norvasc) 10 mg DAILY PO ; Start 03/23/17 at 09:00 Atorvastatin Calcium (Lipitor) 10 mg QHS PO ; Start 03/22/17 at 21:00 Furosemide (Lasix) 40 mg DAILY PO ; Start 03/22/17 at 10:00 Assessment/Plan Chief Complaint/Hosp Course IMPRESSION 1. Hypoxemic hypercapnic respiratory failure 2. Chronic obstructive pulmonary disease with acute hypoxemic respiratory failure. 3. Underlying history of tobacco use. 4. Encephalopathy toxic metabolic appears to be improving. Plan 1. Steroids. 2. Bronchodilators. 3. Antibiotics continues Levaquin. 4. Outpatient pulmonary function test. 5. Advised on smoking cessation. 6. Pneumonia and influenza vaccinations. Consider Nicol workman. Problems: DEMI YARBROUGH MD, [facility] Mar 22, 2017 11:44
[2017-03-22 12:00] VITALS: BP 127/60; PULSE 71; RESP 26
--- NOTE | 2017-03-22 13:39 | PN ---
Date/Time of Note Date/Time of Note DATE: 03/22/17 TIME: 13:30 Assessment/Plan VTE Prophylaxis VTE Prophylaxis Intervention: LMWH Lines/Catheters IV C[facility]from [facility] Saline Lock Urinary Cath still in place: No Assessment/Plan Assessment/Plan 1 acute hypoxic hypercapnic respiratory failure secondary to #2 requiring oxygen Via Ventimask 2 end stage COPD with exacerbation 3 diastolic CHF 4 chronic extensive heavy tobacco use 5 hypertension: Control is improved at this time 6 dyslipidemia PLAN: Patient remains in significant respiratory decompensation, but she continues to refuse all therapy. She seems to understand the extent of her disease, and the implications including the possibility of . I will be speaking with the [id number] director, to see if he can convince her to receive treatment. If not, we will be forced to discharge her according to her wishes, and she may be transferred to a different emergency room facility if she so desires. I am unable to communicate with patient, and patient will aggressively refuse interventions. logging worker has tried to obtain a number for brother, but this is disconnected, and the [id number] reports not having an updated number. Plan of care also discussed with pulmonary. Subjective 24 Hr Interval Summary Free Text/Dictation Again patient refuses to cooperate with me. I am not sure why. After I introduced myself, she repeats my name, and absolutely refuses to speak. However while I am in the room, the social media assistant comes in to speak with her, she is able to tell the social media assistant her name, she knows she is in the hospital , and she knows her birthday. She remains in respiratory distress with audible wheezing requiring a Ventimask, but again all she is asking us to be discharged. She continues to refuse nursing interventions. Exam/Review of Systems Vital Signs Vitals Vital Signs Date Time Temp Pulse Resp B/P Pulse Ox O2 Delivery O2 Flow Rate FiO2 03/22/17 12:00 98.2 71 26 127/60 94 Venturi Mask 15.0 03/22/17 09:04 50 Intake and Output 03/21/17 03/21/17 03/22/17 14:59 22:59 06:59 Intake Total 300 ml 300 ml Balance 300 ml 300 ml Exam GENERAL: Elderly lady on Ventimask oxygen. VITAL SIGNS: As above NECK: Supple. No JVD or lymphadenopathy. CARDIAC: S1, S2, no added sounds or murmurs. CHEST: Diminished air entry bilaterally. Audible wheezes expiratory ABDOMEN: Soft, nontender. No guarding or rebound. EXTREMITIES: No cyanosis, clubbing, edema. NEUROLOGIC: No focal deficits. Results Result Diagram: 03/20/17 0736 03/20/17 0736 Medications Medications Current Medications Ondansetron HCl (Zofran Inj) 4 mg Q6H PRN IV NAUSEA AND/OR VOMITING; Start at 18:30 Acetaminophen (Tylenol Tab) 650 mg Q6H PRN PO PAIN LEVEL 1-3 OR FEVER; Start 03/17/17 at 18:30 Magnesium Hydroxide (Milk Of Mag) 30 ml DAILY PRN PO CONSTIPATION; Start 03/17 at 18:30 Pantoprazole (Protonix Tab) 40 mg DAILY@06 PO Last administered on 03/22/17 06:30; Admin Dose 40 MG; Start 03/18/17 at 06:00 Enoxaparin Sodium (Lovenox) 40 mg DAILY SC Last administered on 03/19/17 08: 50; Admin Dose 40 MG; Start 03/18/17 at 09:00 Tiotropium [place] (Spiriva) 1 inh DAILY INH Last administered on 03/18/17 11 :52; Admin Dose 1 INH; Start 03/18/17 at 10:00 Salmeterol Xinafoate/ Fluticasone (Advair 250/50 Diskus) 1 inh BID INH Last administered on 03/21/17 20:10; Admin Dose 1 INH; Start 03/18/17 at 10:00 Montelukast Sodium (Singulair) 10 mg HS PO Last administered on 03/19/17 21: 24; Admin Dose 10 MG; Start 03/18/17 at 21:00 Diagnostic Test (Pha) (Accu-Chek) 1 ea 02 XX ; Start 03/19/17 at 02:00 Losartan Potassium (Cozaar) 100 mg DAILY PO Last administered on 03/18/17 10: 06; Admin Dose 100 MG; Start 03/18/17 at 09:30; Status Future Hold Spironolactone (Aldactone) 25 mg DAILY PO Last administered on 03/20/17 09:44 ; Admin Dose 25 MG; Start 03/18/17 at 09:30 Atorvastatin Calcium (Lipitor) 10 mg HS PO Last administered on 03/19/17 21: 24; Admin Dose 10 MG; Start 03/18/17 at 21:00 Terbinafine HCl (Lamisil) 250 mg BID PO Last administered on 03/20/17 09:44; Admin Dose 250 MG; Start 03/18/17 at 09:30; Stop 03/25/17 at 09:29 Miscellaneous Information 1 ea NOTE XX ; Start 03/18/17 at 10:00 Glucose (Glutose) 15 gm Q15M PRN PO DECREASED GLUCOSE; Start 03/18/17 at 10:00 Glucose (Glutose) 22.5 gm Q15M PRN PO DECREASED GLUCOSE; Start 03/18/17 at 10: 00 Dextrose (D50w Syringe) 25 ml Q15M PRN IV DECREASED GLUCOSE; Start 03/18/17 at 10:00 Dextrose (D50w Syringe) 50 ml Q15M PRN IV DECREASED GLUCOSE; Start 03/18/17 at 10:00 Glucagon (Glucagen) 1 mg Q15M PRN IM DECREASED GLUCOSE; Start 03/18/17 at 10: 00 Glucose (Glutose) 15 gm Q15M PRN BUCCAL DECREASED GLUCOSE; Start 03/18/17 at 10:00 Docusate Sodium (Colace) 100 mg Q12H PO Last administered on 03/20/17 09:44; Admin Dose 100 MG; Start 03/19/17 at 18:30 Levofloxacin (Levaquin) 500 mg DAILY@06 PO Last administered on 03/22/17 06: 30; Admin Dose 500 MG; Start 03/20/17 at 10:00 Methylprednisolone Sodium Succinate (Solu-Medrol) 40 mg Q12 IV Last administered on 03/21/17 20:07; Admin Dose 40 MG; Start 03/20/17 at 21:00 Risperidone (Risperdal) 3 mg BID PO ; Start 03/21/17 at 21:00 Amlodipine Besylate (Norvasc) 10 mg DAILY PO ; Start 03/23/17 at 09:00 Atorvastatin Calcium (Lipitor) 10 mg QHS PO ; Start 03/22/17 at 21:00 Furosemide (Lasix) 40 mg DAILY PO ; Start 03/22/17 at 10:00 GHISLAINE PABLO Mar 22, 2017 13:39
[2017-03-22 16:00] VITALS: BP 169/87; PULSE 72; RESP 24
[2017-03-22 18:48] VITALS: BP 153/70; RESP 20
[2017-03-22] MEDS: ATORVASTATIN 10 MG TAB PO SCH ×2 (21:00→22:11)
[2017-03-22] MEDS: MONTELUKAST 10 MG TAB PO SCH (22:15)
[2017-03-22 23:25] VITALS: BP 149/72
[2017-03-23] MEDS: ALBUTEROL/IPRATROPIUM (NEB) 3 ML AMP NEB SCH ×6 (01:00→19:35)
[2017-03-23] MEDS: ACCU-CHEK XX SCH (02:00)
[2017-03-23 03:24] VITALS: BP 154/65; RESP 20
[2017-03-23] MEDS: DOCUSATE SODIUM 100 MG CAP PO SCH ×2 (05:35→18:01)
[2017-03-23] MEDS: PANTOPRAZOLE (EC) 40 MG TAB PO SCH (05:35)
[2017-03-23] MEDS: LEVOFLOXACIN 500 MG TAB PO SCH (05:35)
[2017-03-23 07:39] VITALS: BP 164/72; RESP 20
[2017-03-23] MEDS: INSULIN ASPART [NOVOLOG] 3 ML PEN SC SCH ×4 (07:55→21:00)
[2017-03-23] MEDS: ENOXAPARIN 40 MG/0.4 ML SYG SC SCH (09:00)
[2017-03-23] MEDS: FUROSEMIDE 40 MG TAB PO SCH (09:00)
[2017-03-23] MEDS: SALMETEROL/FLUTICASONE 250/50 INHA INH SCH ×2 (09:00→21:00)
[2017-03-23] MEDS: SPIRONOLACTONE 25 MG TAB PO SCH (09:00)
[2017-03-23] MEDS: AMLODIPINE 10 MG TAB PO SCH (09:00)
[2017-03-23] MEDS: TIOTROPIUM 18 MCG CAPSULE INHA DEV INH SCH (09:00)
[2017-03-23] MEDS: METHYLPREDNISOLONE 40 MG INJ IV SCH ×2 (09:00→21:00)
[2017-03-23] MEDS: RISPERIDONE 2 MG TAB PO SCH ×2 (09:00→21:00)
[2017-03-23] MEDS: TERBINAFINE 250 MG TAB PO SCH ×2 (09:00→21:00)
[2017-03-23 11:38] VITALS: BP 146/65; RESP 24
--- NOTE | 2017-03-23 12:33 | CONS ---
Date/Time of Note Date/Time of Note DATE: 03/23/17 TIME: 12:32 Consult Date/Type/Reason Admit Date/Time Mar 17, 2017 at 17:44 Type of Consultation: Pulmonary Subjective Refusing all treatments. Objective Vital Signs Date Time Temp Pulse Resp B/P Pulse Ox O2 Delivery O2 Flow Rate FiO2 03/23/17 11:45 80 Room Air 03/23/17 11:38 98.1 61 24 146/65 03/23/17 01:07 15.0 50 Intake and Output 03/22/17 03/22/17 03/23/17 15:00 23:00 07:00 Intake Total 2450 ml 250 ml Balance 2450 ml 250 ml Exam PHYSICAL EXAMINATION: GENERAL: Elderly lady on nasal cannula intermittently. VITAL SIGNS: As above NECK: Supple. No JVD or lymphadenopathy. CARDIAC: S1, S2, no added sounds or murmurs. CHEST: Diminished air entry bilaterally. ABDOMEN: Soft, nontender. No guarding or rebound. EXTREMITIES: No cyanosis, clubbing, edema. NEUROLOGIC: No focal deficits. Results/Medications Result Diagram: 03/20/17 0736 03/20/17 0736 Medications Current Medications Ondansetron HCl (Zofran Inj) 4 mg Q6H PRN IV NAUSEA AND/OR VOMITING; Start at 18:30 Acetaminophen (Tylenol Tab) 650 mg Q6H PRN PO PAIN LEVEL 1-3 OR FEVER; Start 03/17/17 at 18:30 Magnesium Hydroxide (Milk Of Mag) 30 ml DAILY PRN PO CONSTIPATION; Start 03/17 at 18:30 Pantoprazole (Protonix Tab) 40 mg DAILY@06 PO Last administered on 03/22/17 06:30; Admin Dose 40 MG; Start 03/18/17 at 06:00 Enoxaparin Sodium (Lovenox) 40 mg DAILY SC Last administered on 03/19/17 08: 50; Admin Dose 40 MG; Start 03/18/17 at 09:00 Tiotropium [place] (Spiriva) 1 inh DAILY INH Last administered on 03/18/17 11 :52; Admin Dose 1 INH; Start 03/18/17 at 10:00 Salmeterol Xinafoate/ Fluticasone (Advair 250/50 Diskus) 1 inh BID INH Last administered on 03/21/17 20:10; Admin Dose 1 INH; Start 03/18/17 at 10:00 Montelukast Sodium (Singulair) 10 mg HS PO Last administered on 03/19/17 21: 24; Admin Dose 10 MG; Start 03/18/17 at 21:00 Diagnostic Test (Pha) (Accu-Chek) 1 ea 02 XX ; Start 03/19/17 at 02:00 Losartan Potassium (Cozaar) 100 mg DAILY PO Last administered on 03/18/17 10: 06; Admin Dose 100 MG; Start 03/18/17 at 09:30; Status Future Hold Spironolactone (Aldactone) 25 mg DAILY PO Last administered on 03/20/17 09:44 ; Admin Dose 25 MG; Start 03/18/17 at 09:30 Atorvastatin Calcium (Lipitor) 10 mg HS PO Last administered on 03/19/17 21: 24; Admin Dose 10 MG; Start 03/18/17 at 21:00 Terbinafine HCl (Lamisil) 250 mg BID PO Last administered on 03/20/17 09:44; Admin Dose 250 MG; Start 03/18/17 at 09:30; Stop 03/25/17 at 09:29 Miscellaneous Information 1 ea NOTE XX ; Start 03/18/17 at 10:00 Glucose (Glutose) 15 gm Q15M PRN PO DECREASED GLUCOSE; Start 03/18/17 at 10:00 Glucose (Glutose) 22.5 gm Q15M PRN PO DECREASED GLUCOSE; Start 03/18/17 at 10: 00 Dextrose (D50w Syringe) 25 ml Q15M PRN IV DECREASED GLUCOSE; Start 03/18/17 at 10:00 Dextrose (D50w Syringe) 50 ml Q15M PRN IV DECREASED GLUCOSE; Start 03/18/17 at 10:00 Glucagon (Glucagen) 1 mg Q15M PRN IM DECREASED GLUCOSE; Start 03/18/17 at 10: 00 Glucose (Glutose) 15 gm Q15M PRN BUCCAL DECREASED GLUCOSE; Start 03/18/17 at 10:00 Docusate Sodium (Colace) 100 mg Q12H PO Last administered on 03/20/17 09:44; Admin Dose 100 MG; Start 03/19/17 at 18:30 Levofloxacin (Levaquin) 500 mg DAILY@06 PO Last administered on 03/22/17 06: 30; Admin Dose 500 MG; Start 03/20/17 at 10:00 Methylprednisolone Sodium Succinate (Solu-Medrol) 40 mg Q12 IV Last administered on 03/21/17 20:07; Admin Dose 40 MG; Start 03/20/17 at 21:00 Risperidone (Risperdal) 3 mg BID PO ; Start 03/21/17 at 21:00 Amlodipine Besylate (Norvasc) 10 mg DAILY PO ; Start 03/23/17 at 09:00 Atorvastatin Calcium (Lipitor) 10 mg QHS PO ; Start 03/22/17 at 21:00 Furosemide (Lasix) 40 mg DAILY PO ; Start 03/22/17 at 10:00 Assessment/Plan Chief Complaint/Hosp Course IMPRESSION 1. Hypoxemic hypercapnic respiratory failure 2. Chronic obstructive pulmonary disease with acute hypoxemic respiratory failure. 3. Underlying history of tobacco use. 4. Encephalopathy toxic metabolic appears to be improving. Plan 1. Steroids. 2. Bronchodilators. 3. Antibiotics continues Levaquin. 4. Home O2 5. Advised on smoking cessation. 6. Pneumonia and influenza vaccinations. Agree with DC if patient refuses treatment and is competent to do so. Problems: DEMI YARBROUGH MD, [facility] Mar 23, 2017 12:33
--- NOTE | 2017-03-23 12:43 | PN ---
Date/Time of Note Date/Time of Note DATE: 03/23/17 TIME: 12:33 Assessment/Plan VTE Prophylaxis VTE Prophylaxis Intervention: LMWH (But patient has been refusing) Lines/Catheters [facility]ter [facility] (from [facility] Saline Lock Urinary Cath still in place: No Assessment/Plan Assessment/Plan 1 acute hypoxic hypercapnic respiratory failure secondary to #2 requiring oxygen Via Ventimask 2 end stage COPD with exacerbation 3 diastolic CHF 4 chronic extensive heavy tobacco use 5 hypertension: Control is improved at this time 6 dyslipidemia PLAN The patient continues to refuse all form of care medication. I was hoping that once we resumed her psychotropic medications, she will be more amenable to care ; however this has not been the case. Today however, we have been able to reach her brother who is her only living relative. He assures me that the [facility] where she resides has legal conservatorship of the patient. He states that he will defer all decision making to them, and he is in agreement with whatever plan of care they chose. He states this is not the first time they have been through this with the patient, and they have always made the right decisions in the past and so he trusts them. After this I was able to speak with the facility where the patient resides, they requested that I speak with the patient's primary care physician, and together come up with a plan of care and they were in agreement with whatever plan of care we came up with. They assured me they will give the physician my phone number for him to contact me. A few hours later I was contacted by Dr. Lesly Alfredo who assured me he knew the patient very well as her primary care physician and was given my number by the [facility] facility. After I gave him a short summary of the patient's clinical status and the difficulties we have been having with her care, he made the recommendation of transferring patient to the nursing home facility where he primarily works out of [facility], and assured me that upon her arrival he will do a physical evaluation and determine how to proceed. I agree with this plan because the patient still requires significant volume of oxygen, even though she has been refusing it for the last 3-4 days, and oxygen is not available in the [facility]. I also suspect that the reason the patient is not comfortable with care is because she is not familiar with us. I believe if she sees a physician she is familiar with, and staff she is comfortable with, she will be more amenable to care. So at this time after speaking with the [place] decision-makers in the patient's life, I am comfortable discharging patient to [facility] and further medical decisions will be made by patient's PCP. Subjective 24 Hr Interval Summary Free Text/Dictation patient still having some resp distress, refuses to use facemask for oxygen and is still refusing all nursing interventions and meds. I introduced myself to her again, she starts to ask me when she can leave and why I will not be discharging her. I tried to ensure that the patient knows implication of unsafe discharge, but the patient is not cooperative with the conversation. She begins to get agitated and anxious and yelling again about how she would like to be discharged. Exam/Review of Systems Vital Signs Vitals Vital Signs Date Time Temp Pulse Resp B/P Pulse Ox O2 Delivery O2 Flow Rate FiO2 03/23/17 11:45 80 Room Air 03/23/17 11:38 98.1 61 24 146/65 03/23/17 01:07 15.0 50 Intake and Output 03/22/17 03/22/17 03/23/17 15:00 23:00 07:00 Intake Total 2450 ml 250 ml Balance 2450 ml 250 ml Exam Constitutional: alert Eyes: PERRL Respiratory: diminished breath sounds, wheezing Cardiovascular: regular rate and rhythm, No murmurs/extra sounds Gastrointestinal: bowel sounds, non-tender, soft Extremities: edema Neurological: other (She gets very anxious and agitated) Results Result Diagram: 03/20/17 0736 03/20/17 0736 Medications Medications Current Medications Ondansetron HCl (Zofran Inj) 4 mg Q6H PRN IV NAUSEA AND/OR VOMITING; Start at 18:30 Acetaminophen (Tylenol Tab) 650 mg Q6H PRN PO PAIN LEVEL 1-3 OR FEVER; Start 03/17/17 at 18:30 Magnesium Hydroxide (Milk Of Mag) 30 ml DAILY PRN PO CONSTIPATION; Start 03/17 at 18:30 Pantoprazole (Protonix Tab) 40 mg DAILY@06 PO Last administered on 03/22/17t 06:30; Admin Dose 40 MG; Start 03/18/17 at 06:00 Enoxaparin Sodium (Lovenox) 40 mg DAILY SC Last administered on 03/19/17 08: 50; Admin Dose 40 MG; Start 03/18/17 at 09:00 Tiotropium [place] (Spiriva) 1 inh DAILY INH Last administered on 03/18/17 11 :52; Admin Dose 1 INH; Start 03/18/17 at 10:00 Salmeterol Xinafoate/ Fluticasone (Advair 250/50 Diskus) 1 inh BID INH Last administered on 03/21/17 20:10; Admin Dose 1 INH; Start 03/18/17 at 10:00 Montelukast Sodium (Singulair) 10 mg HS PO Last administered on 03/19/17 21: 24; Admin Dose 10 MG; Start 03/18/17 at 21:00 Diagnostic Test (Pha) (Accu-Chek) 1 ea 02 XX ; Start 03/19/17 at 02:00 Losartan Potassium (Cozaar) 100 mg DAILY PO Last administered on 03/18/17 10: 06; Admin Dose 100 MG; Start 03/18/17 at 09:30; Status Future Hold Spironolactone (Aldactone) 25 mg DAILY PO Last administered on 03/20/17 09:44 ; Admin Dose 25 MG; Start 03/18/17 at 09:30 Atorvastatin Calcium (Lipitor) 10 mg HS PO Last administered on 03/19/17 21: 24; Admin Dose 10 MG; Start 03/18/17 at 21:00 Terbinafine HCl (Lamisil) 250 mg BID PO Last administered on 03/20/17 09:44; Admin Dose 250 MG; Start 03/18/17 at 09:30; Stop 03/25/17 at 09:29 Miscellaneous Information 1 ea NOTE XX ; Start 03/18/17 at 10:00 Glucose (Glutose) 15 gm Q15M PRN PO DECREASED GLUCOSE; Start 03/18/17 at 10:00 Glucose (Glutose) 22.5 gm Q15M PRN PO DECREASED GLUCOSE; Start 03/18/17 at 10: 00 Dextrose (D50w Syringe) 25 ml Q15M PRN IV DECREASED GLUCOSE; Start 03/18/17 at 10:00 Dextrose (D50w Syringe) 50 ml Q15M PRN IV DECREASED GLUCOSE; Start 03/18/17 at 10:00 Glucagon (Glucagen) 1 mg Q15M PRN IM DECREASED GLUCOSE; Start 03/18/17 at 10: 00 Glucose (Glutose) 15 gm Q15M PRN BUCCAL DECREASED GLUCOSE; Start 03/18/17 at 10:00 Docusate Sodium (Colace) 100 mg Q12H PO Last administered on 03/20/17 09:44; Admin Dose 100 MG; Start 03/19/17 at 18:30 Levofloxacin (Levaquin) 500 mg DAILY@06 PO Last administered on 03/22/17 06: 30; Admin Dose 500 MG; Start 03/20/17 at 10:00 Methylprednisolone Sodium Succinate (Solu-Medrol) 40 mg Q12 IV Last administered on 03/21/17 20:07; Admin Dose 40 MG; Start 03/20/17 at 21:00 Risperidone (Risperdal) 3 mg BID PO ; Start 03/21/17 at 21:00 Amlodipine Besylate (Norvasc) 10 mg DAILY PO ; Start 03/23/17 at 09:00 Atorvastatin Calcium (Lipitor) 10 mg QHS PO ; Start 03/22/17 at 21:00 Furosemide (Lasix) 40 mg DAILY PO ; Start 03/22/17 at 10:00 GHISLAINE PABLO Mar 23, 2017 12:43
[2017-03-23] MEDS ORDERED: LEVO500T72 PO (12:46)
[2017-03-23] MEDS ORDERED: MONT10TA24 PO (12:46)
[2017-03-23] MEDS ORDERED: TERB250T46 PO (12:46)
[2017-03-23] MEDS ORDERED: TIOT18CA INH (12:46)
[2017-03-23] MEDS ORDERED: PRED10TA PO (12:48)
--- NOTE | 2017-03-23 12:50 | DS ---
Date/Time of Note Date/Time of Note DATE: 03/23/17 TIME: 12:49 Discharge Summary Admission/Discharge Info Admit Date/Time Mar 17, 2017 at 17:44 Discharge Date/Time 03/23/17 Discharge Diagnosis 1 acute hypoxic hypercapnic respiratory failure secondary to #2 requiring oxygen Via Ventimask 2 end stage COPD with exacerbation 3 diastolic CHF 4 chronic extensive heavy tobacco use 5 hypertension: Control is improved at this time 6 dyslipidemia Patient Condition: Stable Consults pulmonary: [facility] This is a 71-year-old female with chronic COPD and tobacco abuse who was admitted to the facility because of shortness of breath and COPD exacerbation. Patient initially required BiPAP therapy and has been weaned down to oxygen via facemask at 8 L a minute. However patient report has a history of paranoid schizophrenia and has been aggressively and that he mentally refusing all care. She refuses all medications except her Risperdal if uses breathing treatments , reviews his antibiotics. Over the last 4 days she even refuses to speak to physicians. She will talk to some people and not talk to some people. I was able to speak with the patient's brother who is her only living relative, and he assured me that the [id number] from where she was sent from other conservators in her care and have the power to make decisions regarding her care. We spoke with the [id number] who referred her to a primary care physician and verbalized that they will take whatever recommendations her primary care physician agrees with. I ended up speaking with her primary care physician who recommended that patient be transferred into his care and pen[facility] facility and he will assess her and determine how to proceed. I am in agreement with this plan, and patient is to aggressively desirous of discharge. That is the reason she keeps refusing all interventions because she wants to be discharged. I recommendation is that patient be placed on hospice care under which she can choose to refuse all interventions if that is her desire however she would not even attempt to discuss that with us here she just keeps yelling about how she needs to be that discharged home. Discharge instructions have been put in the chart and case management has been notified about the above. . Home Meds Reported Medications Clobetasol/Skin Cleanser #28 ([place] 0.05% Kit) 1 Each Kt.shm.cln, 1 EACH TP DAILY 03/21/17 Ciclopirox/Skin Cleanser No.28 (CICLODAN 0.77% CREAM KIT) 544 Gm Combo..pkg, 1 APPLIC TP BID, KIT 03/21/17 Budesonide-Formoterol Fumarate* (Symbicort*) 160-4.5 Hfa.aer.ad, 2 PUFF INHALATION BID, #1 EACH 03/21/17 Risperidone (Risperdal M-Tab) 3 Mg Tab.rapdis, 3 MG PO BID 03/21/17 Nicotine (Nicotine Patch) 1 Each Patch.dysq, 1 EACH TD DAILY 03/21/17 Losartan-Hydrochlorothiazide (Losartan-HCTZ) 100-12.5 Mg Tab, 1 TAB PO DAILY, TAB 03/21/17 Furosemide* (Furosemide*) 40 Mg Tablet, 40 MG PO DAILY, TAB 03/21/17 Atorvastatin Calcium (Atorvastatin Calcium) 10 Mg Tablet, 10 MG PO QHS, #30 TAB 03/21/17 Amlodipine Besylate* (Amlodipine Besylate*) 10 Mg Tablet, 10 MG PO DAILY, #30 TAB 03/21/17 Follow-up Plan See hospital course . Primary Care Provider Lesly Alfredo [phone] Time spent on discharge: > 30 minutes GHISLAINE PABLO Mar 23, 2017 12:50
[2017-03-23 14:44] VITALS: BP 137/74; RESP 20
[2017-03-23 19:53] VITALS: BP 134/68; RESP 20
[2017-03-23] MEDS: MONTELUKAST 10 MG TAB PO SCH (21:00)
[2017-03-23] MEDS: ATORVASTATIN 10 MG TAB PO SCH ×2 (21:00)
[2017-03-24] VITALS: BP 132/70; RESP 20
[2017-03-24] MEDS: ALBUTEROL/IPRATROPIUM (NEB) 3 ML AMP NEB SCH ×6 (00:40→20:18)
[2017-03-24] MEDS: ACCU-CHEK XX SCH (02:00)
[2017-03-24 04:00] VITALS: BP 135/97; RESP 20
[2017-03-24] MEDS: LEVOFLOXACIN 500 MG TAB PO SCH (06:00)
[2017-03-24] MEDS: PANTOPRAZOLE (EC) 40 MG TAB PO SCH (06:00)
[2017-03-24] MEDS: DOCUSATE SODIUM 100 MG CAP PO SCH ×2 (06:30→18:10)
[2017-03-24] MEDS: INSULIN ASPART [NOVOLOG] 3 ML PEN SC SCH ×4 (07:55→20:13)
[2017-03-24 08:22] VITALS: BP 145/73; RESP 19
[2017-03-24] MEDS: TIOTROPIUM 18 MCG CAPSULE INHA DEV INH SCH (09:00)
[2017-03-24] MEDS: ENOXAPARIN 40 MG/0.4 ML SYG SC SCH (09:00)
[2017-03-24] MEDS: AMLODIPINE 10 MG TAB PO SCH (09:00)
[2017-03-24] MEDS: TERBINAFINE 250 MG TAB PO SCH ×2 (09:00→20:09)
[2017-03-24] MEDS: METHYLPREDNISOLONE 40 MG INJ IV SCH (09:00)
[2017-03-24] MEDS: SPIRONOLACTONE 25 MG TAB PO SCH (09:00)
[2017-03-24] MEDS: FUROSEMIDE 40 MG TAB PO SCH (09:00)
[2017-03-24] MEDS: SALMETEROL/FLUTICASONE 250/50 INHA INH SCH ×2 (09:00→20:08)
[2017-03-24] MEDS: RISPERIDONE 2 MG TAB PO SCH ×2 (09:00→20:10)
--- NOTE | 2017-03-24 11:22 | PN ---
Date/Time of Note Date/Time of Note DATE: 03/24/17 TIME: 11:18 Assessment/Plan VTE Prophylaxis VTE Prophylaxis Intervention: heparin Lines/Catheters IV [facility]ter Type [facility]from [facility] Saline Lock Urinary Cath still in place: No Assessment/Plan Problems: (1) COPD exacerbation Status: Acute Comment: Patient is still on IV Solu-Medrol the discharge orders were written. I will discontinue the Solu-Medrol and convert this to oral steroids. In addition we are adding theophylline to try and help control this end-stage COPD here. Please note she has been again counseled on smoking cessation (2) Obesity (BMI 30-39.9) Status: Chronic Comment: Noted. Calorie restriction diet (3) Essential hypertension Status: Chronic Comment: Adequate control (4) Schizoaffective disorder Status: Chronic Comment: Noted. Qualifiers: Schizoaffective disorder type: unspecified Qualified Code: F25.9 - Schizoaffective disorder, unspecified type (5) Iron deficiency anemia Status: Chronic Comment: On replacement therapy Qualifiers: Iron deficiency anemia type: unspecified iron deficiency Qualified Code: D50.9 - Iron deficiency anemia, unspecified iron deficiency anemia type Subjective 24 Hr Interval Summary Free Text/Dictation Patient is anxious to go home and quite agitated she does not know the discharge plan and she states she was not told the discharge plan Respiratory: shortness of breath, wheezing Cardiovascular: no complaints Gastrointestinal: no complaints Genitourinary: no complaints Exam/Review of Systems Vital Signs Vitals Vital Signs Date Time Temp Pulse Resp B/P Pulse Ox O2 Delivery O2 Flow Rate FiO2 03/24/17 08:22 97.6 74 19 145/73 93 03/24/17 05:26 15.0 50 03/23/17 19:38 Venti Mask Intake and Output 03/23/17 03/23/17 03/24/17 15:00 23:00 07:00 Intake Total 2000 ml Balance 2000 ml Exam Constitutional: alert, oriented Psych: anxiety Respiratory: diminished breath sounds, wheezing Cardiovascular: nl pulses, regular rate and rhythm Gastrointestinal: nl liver, spleen, non-tender, soft Results Result Diagram: 03/20/17 0736 03/20/17 0736 Medications Medications Current Medications Ondansetron HCl (Zofran Inj) 4 mg Q6H PRN IV NAUSEA AND/OR VOMITING; Start at 18:30 Acetaminophen (Tylenol Tab) 650 mg Q6H PRN PO PAIN LEVEL 1-3 OR FEVER; Start 03/17/17 at 18:30 Magnesium Hydroxide (Milk Of Mag) 30 ml DAILY PRN PO CONSTIPATION; Start 03/17 at 18:30 Pantoprazole (Protonix Tab) 40 mg DAILY@06 PO Last administered on 03/22/17 06:30; Admin Dose 40 MG; Start 03/18/17 at 06:00 Enoxaparin Sodium (Lovenox) 40 mg DAILY SC Last administered on 03/19/17 08: 50; Admin Dose 40 MG; Start 03/18/17 at 09:00 Tiotropium [place] (Spiriva) 1 inh DAILY INH Last administered on 03/18/17 11 :52; Admin Dose 1 INH; Start 03/18/17 at 10:00 Salmeterol Xinafoate/ Fluticasone (Advair 250/50 Diskus) 1 inh BID INH Last administered on 03/21/17 20:10; Admin Dose 1 INH; Start 03/18/17 at 10:00 Montelukast Sodium (Singulair) 10 mg HS PO Last administered on 03/19/17 21: 24; Admin Dose 10 MG; Start 03/18/17 at 21:00 Diagnostic Test (Pha) (Accu-Chek) 1 ea 02 XX ; Start 03/19/17 at 02:00 Losartan Potassium (Cozaar) 100 mg DAILY PO Last administered on 03/18/17 10: 06; Admin Dose 100 MG; Start 03/18/17 at 09:30; Status Future Hold Spironolactone (Aldactone) 25 mg DAILY PO Last administered on 03/20/17 09:44 ; Admin Dose 25 MG; Start 03/18/17 at 09:30 Atorvastatin Calcium (Lipitor) 10 mg HS PO Last administered on 03/19/17 21: 24; Admin Dose 10 MG; Start 03/18/17 at 21:00 Terbinafine HCl (Lamisil) 250 mg BID PO Last administered on 03/20/17 09:44; Admin Dose 250 MG; Start 03/18/17 at 09:30; Stop 03/25/17 at 09:29 Miscellaneous Information 1 ea NOTE XX ; Start 12/17/17 at 10:00 Glucose (Glutose) 15 gm Q15M PRN PO DECREASED GLUCOSE; Start 03/18/17 at 10:00 Glucose (Glutose) 22.5 gm Q15M PRN PO DECREASED GLUCOSE; Start 03/18/17 at 10: 00 Dextrose (D50w Syringe) 25 ml Q15M PRN IV DECREASED GLUCOSE; Start 03/18/17 at 10:00 Dextrose (D50w Syringe) 50 ml Q15M PRN IV DECREASED GLUCOSE; Start 03/18/17 at 10:00 Glucagon (Glucagen) 1 mg Q15M PRN IM DECREASED GLUCOSE; Start 03/18/17 at 10: 00 Glucose (Glutose) 15 gm Q15M PRN BUCCAL DECREASED GLUCOSE; Start 03/18/17 at 10:00 Docusate Sodium (Colace) 100 mg Q12H PO Last administered on 03/20/17 09:44; Admin Dose 100 MG; Start 03/19/17 at 18:30 Levofloxacin (Levaquin) 500 mg DAILY@06 PO Last administered on 03/22/17 06: 30; Admin Dose 500 MG; Start 03/20/17 at 10:00 Methylprednisolone Sodium Succinate (Solu-Medrol) 40 mg Q12 IV Last administered on 03/21/17 20:07; Admin Dose 40 MG; Start 03/20/17 at 21:00 Risperidone (Risperdal) 3 mg BID PO ; Start 03/21/17 at 21:00 Amlodipine Besylate (Norvasc) 10 mg DAILY PO ; Start 03/23/17 at 09:00 Atorvastatin Calcium (Lipitor) 10 mg QHS PO ; Start 03/22/17 at 21:00 Furosemide (Lasix) 40 mg DAILY PO ; Start 03/22/17 at 10:00 GABBIE RENAE MD Mar 24, 2017 11:22
[2017-03-24 11:23] VITALS: BP 169/81; RESP 19
[2017-03-24] MEDS: THEOPHYLLINE (SR) 300 MG CAP PO SCH (12:00)
[2017-03-24] MEDS ORDERED: predniSONE 50 MG TAB PO ONE (12:00)
[2017-03-24] MEDS ORDERED: HALOPERIDOL 5 MG INJ IM ONE ×2 (12:00→18:30)
--- NOTE | 2017-03-24 12:54 | CONS ---
Date/Time of Note Date/Time of Note DATE: 03/24/17 TIME: 12:52 Assessment/Plan Assessment/Plan Additional Assessment/Plan Assessment and recommendations; 1. Patient admitted with hypoxemic and hypercapnic respiratory failure with slow but gradual clinical improvement. 2. History of hypertension. Continue current treatment. Consultation Date/Type/Reason Admit Date/Time Mar 17, 2017 at 17:44 Initial Consult Date Type of Consultation: Pulmonary 24 HR Interval Summary Free Text/Dictation Patient's condition is unchanged. Still complains of shortness of breath. Denies any chest pain. General exam; elderly woman, awake alert, currently in no distress. Exam/Review of Systems Vital Signs Vitals Vital Signs Date Time Temp Pulse Resp B/P Pulse Ox O2 Delivery O2 Flow Rate FiO2 03/24/17 11:23 98.9 63 19 169/81 96 03/24/17 05:26 15.0 50 03/23/17 19:38 Venti Mask Intake and Output 03/23/17 03/23/17 03/24/17 15:00 23:00 07:00 Intake Total 2000 ml Balance 2000 ml Exam H ENT exam; supple neck, no JVD. No lymphadenopathy. Midline trachea. No thyromegaly. Patient is edentulous. Chest exam; diminished breath sounds throughout. S1-S2 audible, no murmurs. Regular rhythm. Abdomen exam; soft, nontender. No organomegaly. Protuberant. Bowel sounds audible. Extremity exam; no edema. INFORMATION SYSTEMS ADMINISTRATOR exam; no focal deficit. Results Result Diagram: 03/20/17 0736 03/20/17 0736 Medications Medications Current Medications Ondansetron HCl (Zofran Inj) 4 mg Q6H PRN IV NAUSEA AND/OR VOMITING; Start at 18:30 Acetaminophen (Tylenol Tab) 650 mg Q6H PRN PO PAIN LEVEL 1-3 OR FEVER; Start 03/17/17 at 18:30 Magnesium Hydroxide (Milk Of Mag) 30 ml DAILY PRN PO CONSTIPATION; Start 03/17 at 18:30 Pantoprazole (Protonix Tab) 40 mg DAILY@06 PO Last administered on 03/22/17 06:30; Admin Dose 40 MG; Start 03/18/17 at 06:00 Enoxaparin Sodium (Lovenox) 40 mg DAILY SC Last administered on 03/19/17 08: 50; Admin Dose 40 MG; Start 03/18/17 at 09:00 Tiotropium [place] (Spiriva) 1 inh DAILY INH Last administered on 03/18/17 11 :52; Admin Dose 1 INH; Start 03/18/17 at 10:00 Salmeterol Xinafoate/ Fluticasone (Advair 250/50 Diskus) 1 inh BID INH Last administered on 03/21/17 20:10; Admin Dose 1 INH; Start 03/18/17 at 10:00 Montelukast Sodium (Singulair) 10 mg HS PO Last administered on 03/19/17 21: 24; Admin Dose 10 MG; Start 03/18/17 at 21:00 Diagnostic Test (Pha) (Accu-Chek) 1 ea 02 XX ; Start 03/19/17 at 02:00 Losartan Potassium (Cozaar) 100 mg DAILY PO Last administered on 03/18/17 10: 06; Admin Dose 100 MG; Start 03/18/17 at 09:30; Status Future Hold Spironolactone (Aldactone) 25 mg DAILY PO Last administered on 03/20/17 09:44 ; Admin Dose 25 MG; Start 03/18/17 at 09:30 Atorvastatin Calcium (Lipitor) 10 mg HS PO Last administered on 03/19/17 21: 24; Admin Dose 10 MG; Start 03/18/17 at 21:00 Terbinafine HCl (Lamisil) 250 mg BID PO Last administered on 03/20/17 09:44; Admin Dose 250 MG; Start 03/18/17 at 09:30; Stop 03/25/17 at 09:29 Miscellaneous Information 1 ea NOTE XX ; Start 03/18/17 at 10:00 Glucose (Glutose) 15 gm Q15M PRN PO DECREASED GLUCOSE; Start 03/18/17 at 10:00 Glucose (Glutose) 22.5 gm Q15M PRN PO DECREASED GLUCOSE; Start 03/18/17 at 10: 00 Dextrose (D50w Syringe) 25 ml Q15M PRN IV DECREASED GLUCOSE; Start 03/18/17 at 10:00 Dextrose (D50w Syringe) 50 ml Q15M PRN IV DECREASED GLUCOSE; Start 03/18/17 at 10:00 Glucagon (Glucagen) 1 mg Q15M PRN IM DECREASED GLUCOSE; Start 03/18/17 at 10: 00 Glucose (Glutose) 15 gm Q15M PRN BUCCAL DECREASED GLUCOSE; Start 03/18/17 at 10:00 Docusate Sodium (Colace) 100 mg Q12H PO Last administered on 03/20/17 09:44; Admin Dose 100 MG; Start 03/19/17 at 18:30 Levofloxacin (Levaquin) 500 mg DAILY@06 PO Last administered on 03/22/17 06: 30; Admin Dose 500 MG; Start 03/20/17 at 10:00 Risperidone (Risperdal) 3 mg BID PO ; Start 03/21/17 at 21:00 Amlodipine Besylate (Norvasc) 10 mg DAILY PO ; Start 03/23/17 at 09:00 Atorvastatin Calcium (Lipitor) 10 mg QHS PO ; Start 03/22/17 at 21:00 Furosemide (Lasix) 40 mg DAILY PO ; Start 03/22/17 at 10:00 Prednisone (Prednisone) 30 mg DAILY PO ; Start 03/25/17 at 09:00 Theophylline ([place]-24) 300 mg DAILY PO ; Start 03/24/17 at 12:00 Quetiapine Fumarate (Seroquel) 100 mg QHS PO ; Start 03/24/17 at 21:00 LINO DAY Mar 24, 2017 12:54
[2017-03-24 15:00] VITALS: BP 127/60; RESP 19
--- NOTE | 2017-03-24 17:52 | RADRPT ---
PROCEDURE: XR Chest. CLINICAL INDICATION: Pneumonia, CHF. TECHNIQUE: Single frontal view of the chest was obtained. COMPARISON: 03/19 02:17. FINDINGS: The cardiomediastinal silhouette demonstrates enlargement of the cardiac silhouette. There are aorti c calcifications. Lung volumes remain shallow with no significant change in likely pulmonary vascular congestion. Poss ible trace bilateral pleural effusions. No definite pneumothorax. No acute osseous abnormality. IMPRESSION: 1. Cardiomegaly with continued shallow lung volumes with no significant change in likely pulmonary v ascular congestion. Possible trace bilateral pleural effusions. RPTAT: AAEE Wilder Junior Physician Date Time Electronically viewed and signed by Wilder Junior Physician on 03/24/2017 16:51 PH/
[2017-03-24 20:00] VITALS: BP 152/84; RESP 17
[2017-03-24] MEDS: ATORVASTATIN 10 MG TAB PO SCH ×2 (20:10)
[2017-03-24] MEDS: MONTELUKAST 10 MG TAB PO SCH (20:12)
[2017-03-24] MEDS: QUETIAPINE 100 MG TAB PO SCH (21:00)
[2017-03-25] VITALS: BP 180/80; RESP 17
[2017-03-25] MEDS: ALBUTEROL/IPRATROPIUM (NEB) 3 ML AMP NEB SCH ×6 (00:41→20:07)
[2017-03-25 01:10] VITALS: BP 144/70; PULSE 76; RESP 22
[2017-03-25] MEDS: ACCU-CHEK XX SCH (02:00)
[2017-03-25] MEDS: LEVOFLOXACIN 500 MG TAB PO SCH (05:12)
[2017-03-25] MEDS: PANTOPRAZOLE (EC) 40 MG TAB PO SCH (05:13)
[2017-03-25] MEDS: DOCUSATE SODIUM 100 MG CAP PO SCH ×3 (06:30→20:44)
[2017-03-25 07:30] VITALS: BP 169/109; PULSE 64; RESP 24
[2017-03-25] MEDS: INSULIN ASPART [NOVOLOG] 3 ML PEN SC SCH ×4 (07:55→21:00)
[2017-03-25] MEDS: AMLODIPINE 10 MG TAB PO SCH (08:30)
[2017-03-25] MEDS: TERBINAFINE 250 MG TAB PO SCH (08:30)
[2017-03-25] MEDS: TIOTROPIUM 18 MCG CAPSULE INHA DEV INH SCH (08:30)
[2017-03-25] MEDS: SALMETEROL/FLUTICASONE 250/50 INHA INH SCH ×2 (08:30→20:45)
[2017-03-25] MEDS: predniSONE 10 MG TAB PO SCH (08:30)
[2017-03-25] MEDS: RISPERIDONE 2 MG TAB PO SCH ×2 (08:30→21:00)
[2017-03-25] MEDS: SPIRONOLACTONE 25 MG TAB PO SCH (08:30)
[2017-03-25] MEDS: FUROSEMIDE 40 MG TAB PO SCH (08:30)
[2017-03-25] MEDS: ENOXAPARIN 40 MG/0.4 ML SYG SC SCH (08:31)
[2017-03-25] MEDS: THEOPHYLLINE (SR) 300 MG CAP PO SCH (08:31)
--- NOTE | 2017-03-25 10:37 | PN ---
Date/Time of Note Date/Time of Note DATE: 03/25/17 TIME: 10:35 Assessment/Plan VTE Prophylaxis VTE Prophylaxis Intervention: heparin Lines/Catheters IV Catheter Type (from Nrs): Saline Lock Urinary Cath still in place: No Assessment/Plan Problems: (1) COPD exacerbation Status: Acute Comment: This has been under control with the patient's now refusing medications and treatments. This is going to cause us to lose ground. I will try and get Antione psych involved. (2) Schizoaffective disorder Status: Chronic Comment: I have placed her back on medications. Need Antione psych intervention Qualifiers: Schizoaffective disorder type: unspecified Qualified Code: F25.9 - Schizoaffective disorder, unspecified type (3) Essential hypertension Status: Chronic Comment: Blood pressures up while she is refusing medicines (4) Iron deficiency anemia Status: Chronic Comment: On replacement therapy Qualifiers: Iron deficiency anemia type: unspecified iron deficiency Qualified Code: D50.9 - Iron deficiency anemia, unspecified iron deficiency anemia type Subjective 24 Hr Interval Summary Free Text/Dictation Patient remains somewhat obstinate and focused on her desire to go back to original living situation. Unable to get a word in edgewise. Constitutional: no complaints Exam/Review of Systems Vital Signs Vitals Vital Signs Date Time Temp Pulse Resp B/P Pulse Ox O2 Delivery O2 Flow Rate FiO2 03/25/17 07:30 97.3 64 24 169/109 96 Venturi Mask 03/25/17 01:10 15.0 03/24/17 20:19 50 Intake and Output 03/24/17 03/24/17 03/25/17 15:00 23:00 07:00 Intake Total 200 ml Balance 200 ml Exam Constitutional: alert Respiratory: diminished breath sounds, wheezing Medications Medications Current Medications Ondansetron HCl (Zofran Inj) 4 mg Q6H PRN IV NAUSEA AND/OR VOMITING; Start at 18:30 Acetaminophen (Tylenol Tab) 650 mg Q6H PRN PO PAIN LEVEL 1-3 OR FEVER; Start 03/17/17 at 18:30 Magnesium Hydroxide (Milk Of Mag) 30 ml DAILY PRN PO CONSTIPATION; Start 03/17 at 18:30 Pantoprazole (Protonix Tab) 40 mg DAILY@06 PO Last administered on 03/22/17t 06:30; Admin Dose 40 MG; Start 03/18/17 at 06:00 Enoxaparin Sodium (Lovenox) 40 mg DAILY SC Last administered on 03/19/17 08: 50; Admin Dose 40 MG; Start 03/18/17 at 09:00 Tiotropium [place] (Spiriva) 1 inh DAILY INH Last administered on 03/18/17 11 :52; Admin Dose 1 INH; Start 03/18/17 at 10:00 Salmeterol Xinafoate/ Fluticasone (Advair 250/50 Diskus) 1 inh BID INH Last administered on 03/21/17 20:10; Admin Dose 1 INH; Start 03/18/17 at 10:00 Montelukast Sodium (Singulair) 10 mg HS PO Last administered on 03/19/17 21: 24; Admin Dose 10 MG; Start 03/18/17 at 21:00 Diagnostic Test (Pha) (Accu-Chek) 1 ea 02 XX ; Start 03/19/17 at 02:00 Losartan Potassium (Cozaar) 100 mg DAILY PO Last administered on 03/18/17 10: 06; Admin Dose 100 MG; Start 03/18/17 at 09:30; Status Future Hold Spironolactone (Aldactone) 25 mg DAILY PO Last administered on 03/20/17 09:44 ; Admin Dose 25 MG; Start 03/18/17 at 09:30 Atorvastatin Calcium (Lipitor) 10 mg HS PO Last administered on 03/19/17 21: 24; Admin Dose 10 MG; Start 03/18/17 at 21:00 Miscellaneous Information 1 ea NOTE XX ; Start 03/18/17 at 10:00 Glucose (Glutose) 15 gm Q15M PRN PO DECREASED GLUCOSE; Start 03/18/17 at 10:00 Glucose (Glutose) 22.5 gm Q15M PRN PO DECREASED GLUCOSE; Start 03/18/17 at 10: 00 Dextrose (D50w Syringe) 25 ml Q15M PRN IV DECREASED GLUCOSE; Start 03/18/17 at 10:00 Dextrose (D50w Syringe) 50 ml Q15M PRN IV DECREASED GLUCOSE; Start 03/18/17 at 10:00 Glucagon (Glucagen) 1 mg Q15M PRN IM DECREASED GLUCOSE; Start 03/18/17 at 10: 00 Glucose (Glutose) 15 gm Q15M PRN BUCCAL DECREASED GLUCOSE; Start 03/18/17 at 10:00 Docusate Sodium (Colace) 100 mg Q12H PO Last administered on 03/20/17 09:44; Admin Dose 100 MG; Start 03/19/17 at 18:30 Levofloxacin (Levaquin) 500 mg DAILY@06 PO Last administered on 03/22/17 06: 30; Admin Dose 500 MG; Start 03/20/17 at 10:00 Risperidone (Risperdal) 3 mg BID PO ; Start 03/21/17 at 21:00 Amlodipine Besylate (Norvasc) 10 mg DAILY PO ; Start 03/23/17 at 09:00 Atorvastatin Calcium (Lipitor) 10 mg QHS PO ; Start 03/22/17 at 21:00 Furosemide (Lasix) 40 mg DAILY PO ; Start 03/22/17 at 10:00 Prednisone (Prednisone) 30 mg DAILY PO ; Start 03/25/17 at 09:00 Theophylline ([place]-24) 300 mg DAILY PO ; Start 03/24/17 at 12:00 Quetiapine Fumarate (Seroquel) 100 mg QHS PO ; Start 03/24/17 at 21:00 GABBIE RENAE MD Mar 25, 2017 10:37
--- NOTE | 2017-03-25 11:33 | PSY ---
Date/Time of Note Date/Time of Note DATE: 03/25/17 TIME: 11:32 Psychiatric Subjective Eval Consent Pt consented to telemedicine: No Subjective Evaluation Patient location: inpatient Chief Complaint: SOB Reason for consult: unclear History of present illness Spoe with RN Deann, who said she is not sure what is the reason for the telepsych "probably because patient refuses everything". Deann was not sure if the pt consented to the eval. Pt is 71 yo female with hx dementia and schizophrenia admitted due to COIPD and CHF. I attempted to speak with the pt. Pt refused to answer my questions, says she will not give me her name because she doesn't trust me and she wants to speak to me in person, She says she refuses to speak to me. I was not peter to complete the consultation because of the lack of consent and cooperation on the apr of the patient. . Medical history Problems Medical Problems: (1) COPD exacerbation Status: Acute (2) Essential hypertension Status: Chronic (3) Hypoxia Status: Acute (4) Iron deficiency anemia Status: Chronic (5) Lipidemia Status: Chronic (6) Obesity (BMI 30-39.9) Status: Chronic (7) Patient data not recorded Status: Acute (8) Schizoaffective disorder Status: Chronic (9) Shortness of breath Status: Acute (10) URI (upper respiratory infection) Status: Acute Allergies: Coded Allergies: No Known Allergy (Unverified , 03/17/17) KAJAL POOL MD Mar 25, 2017 11:33
[2017-03-25 12:00] VITALS: BP 195/89; PULSE 68; RESP 24
--- NOTE | 2017-03-25 12:06 | CONS ---
Date/Time of Note Date/Time of Note DATE: 03/25/17 TIME: 12:04 Assessment/Plan Assessment/Plan Additional Assessment/Plan Assessment and recommendations; 1. Patient admitted with hypoxemic and hypercapnic respiratory failure likely due to underlying COPD with interval improvement. 2. Chest x-ray was reviewed from yesterday which is showing interstitial prominence indicative of underlying interstitial lung disease. 3. History of hypertension. Continue current treatment. Consider discharge on home oxygen. Consultation Date/Type/Reason Admit Date/Time Mar 17, 2017 at 17:44 Type of Consultation: Pulmonary 24 HR Interval Summary Free Text/Dictation Patient's condition is stable. Reporting decreased shortness of breath. Denies any coughing or wheezing. General exam; elderly woman, awake, currently in no distress. Exam/Review of Systems Vital Signs Vitals Vital Signs Date Time Temp Pulse Resp B/P Pulse Ox O2 Delivery O2 Flow Rate FiO2 03/25/17 12:00 97.4 68 24 195/89 97 Venturi Mask 15.0 03/25/17 08:50 50 Intake and Output 03/24/17 03/24/17 03/25/17 15:00 23:00 07:00 Intake Total 200 ml Balance 200 ml Exam H ENT exam; supple neck, no lymphadenopathy. JVD difficult to see because of short neck. Patient is edentulous. Chest exam; diminished but clear breath sounds. S1-S2 audible, no murmurs. Regular rhythm. Abdomen exam; soft, protuberant. Nontender. No organomegaly. Bowel sounds audible. Extremity exam; no edema. NURSE DISCHARGE exam; no focal deficit. Medications Medications Current Medications Ondansetron HCl (Zofran Inj) 4 mg Q6H PRN IV NAUSEA AND/OR VOMITING; Start at 18:30 Acetaminophen (Tylenol Tab) 650 mg Q6H PRN PO PAIN LEVEL 1-3 OR FEVER; Start 03/17/17 at 18:30 Magnesium Hydroxide (Milk Of Mag) 30 ml DAILY PRN PO CONSTIPATION; Start 03/17 at 18:30 Pantoprazole (Protonix Tab) 40 mg DAILY@06 PO Last administered on 03/22/17 06:30; Admin Dose 40 MG; Start 03/18/17 at 06:00 Enoxaparin Sodium (Lovenox) 40 mg DAILY SC Last administered on 03/19/17 08: 50; Admin Dose 40 MG; Start 03/18/17 at 09:00 Tiotropium [place] (Spiriva) 1 inh DAILY INH Last administered on 03/18/17 11 :52; Admin Dose 1 INH; Start 03/18/17 at 10:00 Salmeterol Xinafoate/ Fluticasone (Advair 250/50 Diskus) 1 inh BID INH Last administered on 03/21/17 20:10; Admin Dose 1 INH; Start 03/18/17 at 10:00 Montelukast Sodium (Singulair) 10 mg HS PO Last administered on 03/19/17 21: 24; Admin Dose 10 MG; Start 03/18/17 at 21:00 Diagnostic Test (Pha) (Accu-Chek) 1 ea 02 XX ; Start 03/19/17 at 02:00 Losartan Potassium (Cozaar) 100 mg DAILY PO Last administered on 03/18/17 10: 06; Admin Dose 100 MG; Start 03/18/17 at 09:30; Status Future Hold Spironolactone (Aldactone) 25 mg DAILY PO Last administered on 03/20/17 09:44 ; Admin Dose 25 MG; Start 03/18/17 at 09:30 Atorvastatin Calcium (Lipitor) 10 mg HS PO Last administered on 03/19/17 21: 24; Admin Dose 10 MG; Start 03/18/17 at 21:00 Miscellaneous Information 1 ea NOTE XX ; Start 03/18/17 at 10:00 Glucose (Glutose) 15 gm Q15M PRN PO DECREASED GLUCOSE; Start 03/18/17 at 10:00 Glucose (Glutose) 22.5 gm Q15M PRN PO DECREASED GLUCOSE; Start 03/18/17 at 10: 00 Dextrose (D50w Syringe) 25 ml Q15M PRN IV DECREASED GLUCOSE; Start 03/18/17 at 10:00 Dextrose (D50w Syringe) 50 ml Q15M PRN IV DECREASED GLUCOSE; Start 03/18/17 at 10:00 Glucagon (Glucagen) 1 mg Q15M PRN IM DECREASED GLUCOSE; Start 03/18/17 at 10: 00 Glucose (Glutose) 15 gm Q15M PRN BUCCAL DECREASED GLUCOSE; Start 03/18/17 at 10:00 Docusate Sodium (Colace) 100 mg Q12H PO Last administered on 03/20/17 09:44; Admin Dose 100 MG; Start 03/19/17 at 18:30 Levofloxacin (Levaquin) 500 mg DAILY@06 PO Last administered on 03/22/17 06: 30; Admin Dose 500 MG; Start 03/20/17 at 10:00 Risperidone (Risperdal) 3 mg BID PO ; Start 03/21/17 at 21:00 Amlodipine Besylate (Norvasc) 10 mg DAILY PO ; Start 03/23/17 at 09:00 Atorvastatin Calcium (Lipitor) 10 mg QHS PO ; Start 03/22/17 at 21:00 Furosemide (Lasix) 40 mg DAILY PO ; Start 03/22/17 at 10:00 Prednisone (Prednisone) 30 mg DAILY PO ; Start 03/25/17 at 09:00 Theophylline ([place]-24) 300 mg DAILY PO ; Start 03/24/17 at 12:00 Quetiapine Fumarate (Seroquel) 100 mg QHS PO ; Start 03/24/17 at 21:00 LINO DAY Mar 25, 2017 12:06
[2017-03-25 20:05] VITALS: BP 160/73; RESP 20
[2017-03-25] MEDS: ATORVASTATIN 10 MG TAB PO SCH ×2 (20:45→21:00)
[2017-03-25] MEDS: MONTELUKAST 10 MG TAB PO SCH (20:45)
[2017-03-25] MEDS: QUETIAPINE 100 MG TAB PO SCH (20:45)
[2017-03-25] MEDS ORDERED: HALOPERIDOL 5 MG INJ ONE (22:42)
[2017-03-25] MEDS ORDERED: HALOPERIDOL 5 MG INJ IM ONE (23:00)
[2017-03-25] MEDS ORDERED: HALOPERIDOL 5 MG INJ IM SCH (23:07)
[2017-03-26] MEDS: ALBUTEROL/IPRATROPIUM (NEB) 3 ML AMP NEB SCH ×6 (01:00→20:25)
[2017-03-26 02:00] VITALS: BP 155/65; RESP 20
[2017-03-26] MEDS: ACCU-CHEK XX SCH (02:00)
[2017-03-26] MEDS: LEVOFLOXACIN 500 MG TAB PO SCH (05:31)
[2017-03-26] MEDS: PANTOPRAZOLE (EC) 40 MG TAB PO SCH (05:32)
[2017-03-26] MEDS: INSULIN ASPART [NOVOLOG] 3 ML PEN SC SCH ×4 (07:55→21:00)
[2017-03-26 08:00] VITALS: BP 141/69; RESP 18
[2017-03-26] MEDS: RISPERIDONE 2 MG TAB PO SCH ×2 (08:23→21:00)
[2017-03-26] MEDS: TIOTROPIUM 18 MCG CAPSULE INHA DEV INH SCH (09:00)
[2017-03-26] MEDS: SPIRONOLACTONE 25 MG TAB PO SCH (09:00)
[2017-03-26] MEDS: FUROSEMIDE 40 MG TAB PO SCH (09:00)
[2017-03-26] MEDS: AMLODIPINE 10 MG TAB PO SCH (09:00)
[2017-03-26] MEDS: ENOXAPARIN 40 MG/0.4 ML SYG SC SCH (09:00)
[2017-03-26] MEDS: SALMETEROL/FLUTICASONE 250/50 INHA INH SCH ×2 (09:00→21:00)
[2017-03-26] MEDS: predniSONE 10 MG TAB PO SCH (09:00)
[2017-03-26] MEDS: THEOPHYLLINE (SR) 300 MG CAP PO SCH (09:00)
--- NOTE | 2017-03-26 11:56 | CONS ---
Date/Time of Note Date/Time of Note DATE: 03/26/17 TIME: 11:53 Assessment/Plan Assessment/Plan Additional Assessment/Plan Assessment and recommendations; 1. Patient admitted with hypercapnic and hypoxemic respiratory failure from underlying COPD/acute bronchitis with interval improvement. 2. Underlying obesity. 3. Likely interstitial lung disease. 4. Possibly sleep apnea. Continue current treatment. Monitor pulse ox on room air. If the patient has O2 saturation above 80% she can be discharged home. Consultation Date/Type/Reason Admit Date/Time Mar 17, 2017 at 17:44 Type of Consultation: Pulmonary 24 HR Interval Summary Free Text/Dictation Patient's condition is stable. Wants to go home. Denies any shortness breath, coughing, wheezing. General exam; elderly woman, awake alert, currently in no distress. Exam/Review of Systems Vital Signs Vitals Vital Signs Date Time Temp Pulse Resp B/P Pulse Ox O2 Delivery O2 Flow Rate FiO2 03/26/17 08:03 89 95 Venti Mask 15.0 50 03/26/17 08:00 98.0 18 141/69 Intake and Output 03/25/17 03/25/17 03/26/17 14:59 22:59 06:59 Intake Total 2630 ml 200 ml Balance 2630 ml 200 ml Exam HEENT exam; supple neck, no JVD. No lymphadenopathy. Midline trachea. No thyromegaly. Patient is edentulous. Chest exam; diminished but clear breath sounds. S1-S2 audible, no murmurs. Regular rhythm. Abdomen exam; soft, nondistended. No organomegaly. Bowel sounds audible. Extremity exam; no edema. 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 Results Results 24 hrs Laboratory Tests Test 03/26/17 02:47 Bedside Glucose 131 Medications Medications Current Medications Ondansetron HCl (Zofran Inj) 4 mg Q6H PRN IV NAUSEA AND/OR VOMITING; Start at 18:30 Acetaminophen (Tylenol Tab) 650 mg Q6H PRN PO PAIN LEVEL 1-3 OR FEVER; Start 03/17/17 at 18:30 Magnesium Hydroxide (Milk Of Mag) 30 ml DAILY PRN PO CONSTIPATION; Start 03/17 at 18:30 Pantoprazole (Protonix Tab) 40 mg DAILY@06 PO Last administered on 03/26/17t 05:32; Admin Dose 40 MG; Start 03/18/17 at 06:00 Enoxaparin Sodium (Lovenox) 40 mg DAILY SC Last administered on 03/19/17 08: 50; Admin Dose 40 MG; Start 03/18/17 at 09:00 Tiotropium [place] (Spiriva) 1 inh DAILY INH Last administered on 03/18/17 11 :52; Admin Dose 1 INH; Start 03/18/17 at 10:00 Salmeterol Xinafoate/ Fluticasone (Advair 250/50 Diskus) 1 inh BID INH Last administered on 03/25/17 20:45; Admin Dose 1 INH; Start 03/18/17 at 10:00 Montelukast Sodium (Singulair) 10 mg HS PO Last administered on 03/25/17 20: 45; Admin Dose 10 MG; Start 03/18/17 at 21:00 Diagnostic Test (Pha) (Accu-Chek) 1 ea 02 XX Last administered on 03/26/17 02 :00; Admin Dose 1 EA; Start 03/19/17 at 02:00 Losartan Potassium (Cozaar) 100 mg DAILY PO Last administered on 03/18/17 10: 06; Admin Dose 100 MG; Start 03/18/17 at 09:30; Status Future Hold Spironolactone (Aldactone) 25 mg DAILY PO Last administered on 03/20/17 09:44 ; Admin Dose 25 MG; Start 03/18/17 at 09:30 Atorvastatin Calcium (Lipitor) 10 mg HS PO Last administered on 03/25/17 20: 45; Admin Dose 10 MG; Start 03/18/17 at 21:00 Miscellaneous Information 1 ea NOTE XX ; Start 03/18/17 at 10:00 Glucose (Glutose) 15 gm Q15M PRN PO DECREASED GLUCOSE; Start 03/18/17 at 10:00 Glucose (Glutose) 22.5 gm Q15M PRN PO DECREASED GLUCOSE; Start 03/18/17 at 10: 00 Dextrose (D50w Syringe) 25 ml Q15M PRN IV DECREASED GLUCOSE; Start 03/18/17 at 10:00 Dextrose (D50w Syringe) 50 ml Q15M PRN IV DECREASED GLUCOSE; Start 03/18/17 at 10:00 Glucagon (Glucagen) 1 mg Q15M PRN IM DECREASED GLUCOSE; Start 03/18/17 at 10: 00 Glucose (Glutose) 15 gm Q15M PRN BUCCAL DECREASED GLUCOSE; Start 03/18/17 at 10:00 Docusate Sodium (Colace) 100 mg Q12H PO Last administered on 03/25/17 20:44; Admin Dose 100 MG; Start 03/19/17 at 18:30 Levofloxacin (Levaquin) 500 mg DAILY@06 PO Last administered on 03/26/17 05: 31; Admin Dose 500 MG; Start 03/20/17 at 10:00 Risperidone (Risperdal) 3 mg BID PO Last administered on 03/26/17 08:23; Admin Dose 3 MG; Start 03/21/17 at 21:00 Amlodipine Besylate (Norvasc) 10 mg DAILY PO ; Start 03/23/17 at 09:00 Atorvastatin Calcium (Lipitor) 10 mg QHS PO Last administered on 03/25/17 21: 00; Admin Dose 10 MG; Start 03/22/17 at 21:00 Furosemide (Lasix) 40 mg DAILY PO ; Start 03/22/17 at 10:00 Prednisone (Prednisone) 30 mg DAILY PO ; Start 03/25/17 at 09:00 Theophylline (Bentley-24) 300 mg DAILY PO ; Start 03/24/17 at 12:00 Quetiapine Fumarate (Seroquel) 100 mg QHS PO Last administered on 03/25/17 20 :45; Admin Dose 100 MG; Start 03/24/17 at 21:00 LINO DAY Mar 26, 2017 11:56
--- NOTE | 2017-03-26 13:18 | PN ---
Date/Time of Note Date/Time of Note DATE: 03/26/17 TIME: 13:15 Assessment/Plan VTE Prophylaxis VTE Prophylaxis Intervention: LMWH Lines/Catheters IV Catheter Type (from Nrsg): Saline Lock Urinary Cath still in place: No Assessment/Plan Chief Complaint/Hosp Course 71 yo female with acute COPD exacerbation, hypercapneic/hypoxic respiratory fauilre - Continue predisone, bronchodilators. Patient seem to be slowly improving per documentation, but still wheezy and hypoxic. Will repeat ABG today to monitor ventilatory status - Continue inpatient treatment Problems: Subjective 24 Hr Interval Summary Free Text/Dictation Very much wants to be discharged Explained she is still quite ill and her NH is unable to accept her back today regardless Exam/Review of Systems Vital Signs Vitals Vital Signs Date Time Temp Pulse Resp B/P Pulse Ox O2 Delivery O2 Flow Rate FiO2 03/26/17 08:03 89 95 Venti Mask 15.0 50 03/26/17 08:00 98.0 18 141/69 Intake and Output 03/25/17 03/25/17 03/26/17 15:00 23:00 07:00 Intake Total 2630 ml 200 ml Balance 2630 ml 200 ml Exam Alet, NAD Slightyl tachypneic + End expiratory wheezing Neck veins flat Results Results 24 hrs Laboratory Tests Test 03/26/17 02:47 Bedside Glucose 131 Medications Medications Current Medications Ondansetron HCl (Zofran Inj) 4 mg Q6H PRN IV NAUSEA AND/OR VOMITING; Start at 18:30 Acetaminophen (Tylenol Tab) 650 mg Q6H PRN PO PAIN LEVEL 1-3 OR FEVER; Start 03/17/17 at 18:30 Magnesium Hydroxide (Milk Of Mag) 30 ml DAILY PRN PO CONSTIPATION; Start 03/17 at 18:30 Pantoprazole (Protonix Tab) 40 mg DAILY@06 PO Last administered on 03/26/17 05:32; Admin Dose 40 MG; Start 03/18/17 at 06:00 Enoxaparin Sodium (Lovenox) 40 mg DAILY SC Last administered on 03/19/17 08: 50; Admin Dose 40 MG; Start 03/18/17 at 09:00 Tiotropium [place] (Spiriva) 1 inh DAILY INH Last administered on 03/18/17 11 :52; Admin Dose 1 INH; Start 03/18/17 at 10:00 Salmeterol Xinafoate/ Fluticasone (Advair 250/50 Diskus) 1 inh BID INH Last administered on 03/25/17 20:45; Admin Dose 1 INH; Start 03/18/17 at 10:00 Montelukast Sodium (Singulair) 10 mg HS PO Last administered on 03/25/17 20: 45; Admin Dose 10 MG; Start 03/18/17 at 21:00 Diagnostic Test (Pha) (Accu-Chek) 1 ea 02 XX Last administered on 03/26/17 02 :00; Admin Dose 1 EA; Start 03/19/17 at 02:00 Losartan Potassium (Cozaar) 100 mg DAILY PO Last administered on 03/18/17 10: 06; Admin Dose 100 MG; Start 03/18/17 at 09:30; Status Future Hold Spironolactone (Aldactone) 25 mg DAILY PO Last administered on 03/20/17 09:44 ; Admin Dose 25 MG; Start 03/18/17 at 09:30 Atorvastatin Calcium (Lipitor) 10 mg HS PO Last administered on 03/25/17 20: 45; Admin Dose 10 MG; Start 03/18/17 at 21:00 Miscellaneous Information 1 ea NOTE XX ; Start 03/18/17 at 10:00 Glucose (Glutose) 15 gm Q15M PRN PO DECREASED GLUCOSE; Start 03/18/17 at 10:00 Glucose (Glutose) 22.5 gm Q15M PRN PO DECREASED GLUCOSE; Start 03/18/17 at 10: 00 Dextrose (D50w Syringe) 25 ml Q15M PRN IV DECREASED GLUCOSE; Start 03/18/17 at 10:00 Dextrose (D50w Syringe) 50 ml Q15M PRN IV DECREASED GLUCOSE; Start 03/18/17 at 10:00 Glucagon (Glucagen) 1 mg Q15M PRN IM DECREASED GLUCOSE; Start 03/18/17 at 10: 00 Glucose (Glutose) 15 gm Q15M PRN BUCCAL DECREASED GLUCOSE; Start 03/18/17 at 10:00 Docusate Sodium (Colace) 100 mg Q12H PO Last administered on 03/25/17 20:44; Admin Dose 100 MG; Start 03/19/17 at 18:30 Levofloxacin (Levaquin) 500 mg DAILY@06 PO Last administered on 03/26/17 05: 31; Admin Dose 500 MG; Start 03/20/17 at 10:00 Risperidone (Risperdal) 3 mg BID PO Last administered on 03/26/17 08:23; Admin Dose 3 MG; Start 03/21/17 at 21:00 Amlodipine Besylate (Norvasc) 10 mg DAILY PO ; Start 03/23/17 at 09:00 Atorvastatin Calcium (Lipitor) 10 mg QHS PO Last administered on 03/25/17 21: 00; Admin Dose 10 MG; Start 03/22/17 at 21:00 Furosemide (Lasix) 40 mg DAILY PO ; Start 03/22/17 at 10:00 Prednisone (Prednisone) 30 mg DAILY PO ; Start 03/25/17 at 09:00 Theophylline (Bentley-24) 300 mg DAILY PO ; Start 03/24/17 at 12:00 Quetiapine Fumarate (Seroquel) 100 mg QHS PO Last administered on 03/25/17 20 :45; Admin Dose 100 MG; Start 03/24/17 at 21:00 KATARINA PINEDA MD Mar 26, 2017 13:18
[2017-03-26 14:29] LABS: AADO2 Arterial 51.4 mmHg (7.0-24.0); Allen Test ACCEPTAB; Arterial Base Excess 4.2 mmol/L (-3.0-3); Arterial COHb 0.6 % (0.0-3.0); Arterial Fraction of Oxyhgb 83.8 % (93.0-99.0); Arterial HCO3 28.7 mmol/L (22.0-26.0); Arterial MetHb 0.1 % (0.0-1.5); Arterial Total Hemglobin 12.9 g/dl (12.0-18.0); MODE ROOM AIR
[2017-03-26] MEDS: DOCUSATE SODIUM 100 MG CAP PO SCH (18:18)
[2017-03-26] MEDS: QUETIAPINE 100 MG TAB PO SCH (21:00)
[2017-03-26] MEDS: ATORVASTATIN 10 MG TAB PO SCH ×2 (21:00)
[2017-03-26] MEDS: MONTELUKAST 10 MG TAB PO SCH (21:00)
[2017-03-27] MEDS: ALBUTEROL/IPRATROPIUM (NEB) 3 ML AMP NEB SCH ×6 (01:00→21:00)
[2017-03-27] MEDS: ACCU-CHEK XX SCH ×2 (02:00→21:02)
[2017-03-27] MEDS: DOCUSATE SODIUM 100 MG CAP PO SCH ×2 (05:37→17:18)
[2017-03-27] MEDS: PANTOPRAZOLE (EC) 40 MG TAB PO SCH (05:38)
[2017-03-27] MEDS: LEVOFLOXACIN 500 MG TAB PO SCH (05:39)
[2017-03-27 07:07] VITALS: BP 111/58; RESP 22
[2017-03-27] MEDS: INSULIN ASPART [NOVOLOG] 3 ML PEN SC SCH ×4 (07:55→21:00)
[2017-03-27] MEDS: SPIRONOLACTONE 25 MG TAB PO SCH (09:00)
[2017-03-27] MEDS: AMLODIPINE 10 MG TAB PO SCH (09:00)
[2017-03-27] MEDS: predniSONE 10 MG TAB PO SCH (09:00)
[2017-03-27] MEDS: THEOPHYLLINE (SR) 300 MG CAP PO SCH (09:00)
[2017-03-27] MEDS: RISPERIDONE 2 MG TAB PO SCH ×2 (09:00→21:01)
[2017-03-27] MEDS: FUROSEMIDE 40 MG TAB PO SCH (09:00)
[2017-03-27] MEDS: TIOTROPIUM 18 MCG CAPSULE INHA DEV INH SCH (09:00)
[2017-03-27] MEDS: SALMETEROL/FLUTICASONE 250/50 INHA INH SCH ×2 (09:00→21:00)
[2017-03-27] MEDS: ENOXAPARIN 40 MG/0.4 ML SYG SC SCH (09:00)
--- NOTE | 2017-03-27 11:27 | PN ---
Date/Time of Note Date/Time of Note DATE: 03/27/17 TIME: 11:27 Assessment/Plan VTE Prophylaxis VTE Prophylaxis Intervention: SCD's Lines/Catheters IV Catheter Type (from Nrs): Saline Lock Urinary Cath still in place: No Assessment/Plan Assessment/Plan 1. Hypoxemic hypercapnic respiratory failure- improving - Patient states she's doing better and does not need oxygen support - She is requiring 5L O2 to maintain saturations >90% but states she will not need oxygen on discharge 2. Chronic obstructive pulmonary disease with acute hypoxemic respiratory failure. - Pulm on board and recommendations appreciated - bronchodilators, Levaquin and steroids. 3. Underlying history of tobacco use. - smoking cessation discussed but refusing to quit - refused to speak with Telepsych over the monitor 4. Encephalopathy toxic and metabolic etiology - improving 5. Disposition - will do ABG on day of discharge - Plan for d/c to [facility] with bed available Subjective 24 Hr Interval Summary Free Text/Dictation Patient asking to go home and adamant about not needing any oxygen support upon discharge. States will continue to smoke and does not plan on quitting. Exam/Review of Systems Vital Signs Vitals Vital Signs Date Time Temp Pulse Resp B/P Pulse Ox O2 Delivery O2 Flow Rate FiO2 03/27/17 08:00 Nasal Cannula 6.0 03/27/17 07:07 98.0 63 22 111/58 92 03/26/17 16:37 32 Intake and Output 03/26/17 03/26/17 03/27/17 15:00 23:00 07:00 Intake Total 1840 ml 2000 ml Balance 1840 ml 2000 ml Exam Constitutional: alert, well developed Head: atraumatic, normocephalic Eyes: EOMI, PERRL ENMT: mucosa pink and moist Neck: supple Respiratory: crackles/rales, diminished breath sounds, No wheezing Cardiovascular: regular rate and rhythm, No edema, No murmurs/extra sounds Gastrointestinal: non-tender, soft, No distended, No rebound or guarding Musculoskeletal: nl extremities to inspection Extremities: normal pulses Neurological: confused Results Results 24 hrs Laboratory Tests Test 03/26/17 11:53 Blood Gas Specimen Source Blood arterial Arterial Blood Date Drawn 03/26/2017 2:10:32 PM Arterial Blood pH (Temp corrected) 7.445 Arterial Blood pCO2 (Temp correct) 42.8 Arterial Blood pO2 (Temp corrected) 47.1 *L Arterial Blood HCO3 28.7 H Arterial Blood Base Excess 4.2 H Arterial Blood Oxygen Saturation 84.4 L [place] Test ACCEPTAB Arterial Blood Gas Puncture Site Right Radial Arterial Blood Carboxyhemoglobin 0.6 Arterial Blood Methemoglobin 0.1 Blood Gas A-a O2 Differential 51.4 H Oxyhemoglobin Percent 83.8 L Total Hemoglobin 12.9 Blood Gas Temperature 37.0 Blood Gas Modality ROOM AIR FiO2 21.0 Blood Gas Critical Value Read Back KATIE Blood Gas Notified Whom DAVE Blood Gas Notified Time 03/26/2017 2:25:31 PM Medications Medications Current Medications Ondansetron HCl (Zofran Inj) 4 mg Q6H PRN IV NAUSEA AND/OR VOMITING; Start at 18:30 Acetaminophen (Tylenol Tab) 650 mg Q6H PRN PO PAIN LEVEL 1-3 OR FEVER; Start 03/17/17 at 18:30 Magnesium Hydroxide (Milk Of Mag) 30 ml DAILY PRN PO CONSTIPATION; Start 03/17 at 18:30 Pantoprazole (Protonix Tab) 40 mg DAILY@06 PO Last administered on 03/26/17 05:32; Admin Dose 40 MG; Start 03/18/17 at 06:00 Enoxaparin Sodium (Lovenox) 40 mg DAILY SC Last administered on 03/19/17 08: 50; Admin Dose 40 MG; Start 03/18/17 at 09:00 Tiotropium [place] (Spiriva) 1 inh DAILY INH Last administered on 03/18/17 11 :52; Admin Dose 1 INH; Start 03/18/17 at 10:00 Salmeterol Xinafoate/ Fluticasone (Advair 250/50 Diskus) 1 inh BID INH Last administered on 03/25/17 20:45; Admin Dose 1 INH; Start 03/18/17 at 10:00 Montelukast Sodium (Singulair) 10 mg HS PO Last administered on 03/25/17 20: 45; Admin Dose 10 MG; Start 03/18/17 at 21:00 Diagnostic Test (Pha) (Accu-Chek) 1 ea 02 XX Last administered on 03/26/17 02 :00; Admin Dose 1 EA; Start 03/19/17 at 02:00 Losartan Potassium (Cozaar) 100 mg DAILY PO Last administered on 03/18/17 10: 06; Admin Dose 100 MG; Start 03/18/17 at 09:30; Status Future Hold Spironolactone (Aldactone) 25 mg DAILY PO Last administered on 03/20/17 09:44 ; Admin Dose 25 MG; Start 03/18/17 at 09:30 Atorvastatin Calcium (Lipitor) 10 mg HS PO Last administered on 03/25/17 20: 45; Admin Dose 10 MG; Start 03/18/17 at 21:00 Miscellaneous Information 1 ea NOTE XX ; Start 03/18/17 at 10:00 Glucose (Glutose) 15 gm Q15M PRN PO DECREASED GLUCOSE; Start 03/18/17 at 10:00 Glucose (Glutose) 22.5 gm Q15M PRN PO DECREASED GLUCOSE; Start 03/18/17 at 10: 00 Dextrose (D50w Syringe) 25 ml Q15M PRN IV DECREASED GLUCOSE; Start 03/18/17 at 10:00 Dextrose (D50w Syringe) 50 ml Q15M PRN IV DECREASED GLUCOSE; Start 03/18/17 at 10:00 Glucagon (Glucagen) 1 mg Q15M PRN IM DECREASED GLUCOSE; Start 03/18/17 at 10: 00 Glucose (Glutose) 15 gm Q15M PRN BUCCAL DECREASED GLUCOSE; Start 03/18/17 at 10:00 Docusate Sodium (Colace) 100 mg Q12H PO Last administered on 03/25/17 20:44; Admin Dose 100 MG; Start 03/19/17 at 18:30 Levofloxacin (Levaquin) 500 mg DAILY@06 PO Last administered on 03/27/17 05: 39; Admin Dose 500 MG; Start 03/20/17 at 10:00 Risperidone (Risperdal) 3 mg BID PO Last administered on 03/26/17 08:23; Admin Dose 3 MG; Start 03/21/17 at 21:00 Amlodipine Besylate (Norvasc) 10 mg DAILY PO ; Start 03/23/17 at 09:00 Atorvastatin Calcium (Lipitor) 10 mg QHS PO Last administered on 03/25/17 21: 00; Admin Dose 10 MG; Start 03/22/17 at 21:00 Furosemide (Lasix) 40 mg DAILY PO ; Start 12/21/17 at 10:00 Prednisone (Prednisone) 30 mg DAILY PO ; Start 03/25/17 at 09:00 Theophylline (Bentley-24) 300 mg DAILY PO ; Start 03/24/17 at 12:00 Quetiapine Fumarate (Seroquel) 100 mg QHS PO Last administered on 03/25/17t 20 :45; Admin Dose 100 MG; Start 03/24/17 at 21:00 FREYA LEGER MD Mar 27, 2017 11:27
[2017-03-27 12:00] VITALS: BP 112/58; RESP 18
--- NOTE | 2017-03-27 12:36 | CONS ---
Date/Time of Note Date/Time of Note DATE: 03/27/17 TIME: 12:35 Consult Date/Type/Reason Admit Date/Time Mar 17, 2017 at 17:44 Type of Consultation: Pulmonary Subjective Patient remains awake alert oriented. Wants to go home. States she does not need oxygen. Objective Vital Signs Date Time Temp Pulse Resp B/P Pulse Ox O2 Delivery O2 Flow Rate FiO2 03/27/17 08:00 Nasal Cannula 6.0 03/27/17 07:07 98.0 63 22 111/58 92 03/26/17 16:37 32 Intake and Output 03/26/17 03/26/17 03/27/17 15:00 23:00 07:00 Intake Total 1840 ml 2000 ml Balance 1840 ml 2000 ml Exam GENERAL: Well-developed lady comfortable at rest no acute distress VITAL SIGNS: per chart NECK: Supple. No JVD or lymphadenopathy. CARDIAC EXAM: S1, S2. No added sounds or murmurs. CHEST: clear bilaterally, No added sounds, rales or wheezes ABDOMEN: Soft, nontender. No guarding or rebound. EXTREMITIES: No cyanosis, clubbing or edema. NEUROLOGIC: Generalized weakness. No focal deficits. Results/Medications Medications Current Medications Ondansetron HCl (Zofran Inj) 4 mg Q6H PRN IV NAUSEA AND/OR VOMITING; Start at 18:30 Acetaminophen (Tylenol Tab) 650 mg Q6H PRN PO PAIN LEVEL 1-3 OR FEVER; Start 03/17/17 at 18:30 Magnesium Hydroxide (Milk Of Mag) 30 ml DAILY PRN PO CONSTIPATION; Start 03/17 at 18:30 Pantoprazole (Protonix Tab) 40 mg DAILY@06 PO Last administered on 03/26/17 05:32; Admin Dose 40 MG; Start 03/18/17 at 06:00 Enoxaparin Sodium (Lovenox) 40 mg DAILY SC Last administered on 03/19/17 08: 50; Admin Dose 40 MG; Start 03/18/17 at 09:00 Tiotropium [place] (Spiriva) 1 inh DAILY INH Last administered on 03/18/17 11 :52; Admin Dose 1 INH; Start 03/18/17 at 10:00 Salmeterol Xinafoate/ Fluticasone (Advair 250/50 Diskus) 1 inh BID INH Last administered on 03/25/17 20:45; Admin Dose 1 INH; Start 03/18/17 at 10:00 Montelukast Sodium (Singulair) 10 mg HS PO Last administered on 03/25/17 20: 45; Admin Dose 10 MG; Start 03/18/17 at 21:00 Diagnostic Test (Pha) (Accu-Chek) 1 ea 02 XX Last administered on 03/26/17 02 :00; Admin Dose 1 EA; Start 03/19/17 at 02:00 Losartan Potassium (Cozaar) 100 mg DAILY PO Last administered on 03/18/17 10: 06; Admin Dose 100 MG; Start 03/18/17 at 09:30; Status Future Hold Spironolactone (Aldactone) 25 mg DAILY PO Last administered on 03/20/17 09:44 ; Admin Dose 25 MG; Start 03/18/17 at 09:30 Atorvastatin Calcium (Lipitor) 10 mg HS PO Last administered on 03/25/17 20: 45; Admin Dose 10 MG; Start 03/18/17 at 21:00 Miscellaneous Information 1 ea NOTE XX ; Start 03/18/17 at 10:00 Glucose (Glutose) 15 gm Q15M PRN PO DECREASED GLUCOSE; Start 03/18/17 at 10:00 Glucose (Glutose) 22.5 gm Q15M PRN PO DECREASED GLUCOSE; Start 03/18/17 at 10: 00 Dextrose (D50w Syringe) 25 ml Q15M PRN IV DECREASED GLUCOSE; Start 03/18/17 at 10:00 Dextrose (D50w Syringe) 50 ml Q15M PRN IV DECREASED GLUCOSE; Start 03/18/17 at 10:00 Glucagon (Glucagen) 1 mg Q15M PRN IM DECREASED GLUCOSE; Start 03/18/17 at 10: 00 Glucose (Glutose) 15 gm Q15M PRN BUCCAL DECREASED GLUCOSE; Start 03/18/17 at 10:00 Docusate Sodium (Colace) 100 mg Q12H PO Last administered on 03/25/17 20:44; Admin Dose 100 MG; Start 03/19/17 at 18:30 Levofloxacin (Levaquin) 500 mg DAILY@06 PO Last administered on 03/27/17 05: 39; Admin Dose 500 MG; Start 03/20/17 at 10:00 Risperidone (Risperdal) 3 mg BID PO Last administered on 03/26/17 08:23; Admin Dose 3 MG; Start 03/21/17 at 21:00 Amlodipine Besylate (Norvasc) 10 mg DAILY PO ; Start 03/23/17 at 09:00 Atorvastatin Calcium (Lipitor) 10 mg QHS PO Last administered on 03/25/17 21: 00; Admin Dose 10 MG; Start 03/22/17 at 21:00 Furosemide (Lasix) 40 mg DAILY PO ; Start 03/22/17 at 10:00 Prednisone (Prednisone) 30 mg DAILY PO ; Start 03/25/17 at 09:00 Theophylline (Bentley-24) 300 mg DAILY PO ; Start 03/24/17 at 12:00 Quetiapine Fumarate (Seroquel) 100 mg QHS PO Last administered on 03/25/17 20 :45; Admin Dose 100 MG; Start 03/24/17 at 21:00 Assessment/Plan Chief Complaint/Hosp Course IMPRESSION 1. Hypoxemic hypercapnic respiratory failure, resolving COPD exacerbation 2. Chronic obstructive pulmonary disease with acute hypoxemic respiratory failure. 3. Underlying history of tobacco use. 4. Encephalopathy toxic metabolic resolving. Plan 1. Steroids. 2. Bronchodilators. 3. Antibiotics continues Levaquin. 4. Home O2 5. Advised on smoking cessation. 6. Pneumonia and influenza vaccinations. DC planning. Problems: DEMI YARBROUGH MD, [facility] Mar 27, 2017 12:36
[2017-03-27 15:52] VITALS: BP 131/60; RESP 22
[2017-03-27 19:22] VITALS: BP 162/89; RESP 20
[2017-03-27] MEDS: QUETIAPINE 100 MG TAB PO SCH (21:00)
[2017-03-27] MEDS: ATORVASTATIN 10 MG TAB PO SCH ×2 (21:00)
[2017-03-27] MEDS: MONTELUKAST 10 MG TAB PO SCH (21:00)
[2017-03-27 23:33] VITALS: BP 133/75; RESP 20
[2017-03-28] MEDS: ALBUTEROL/IPRATROPIUM (NEB) 3 ML AMP NEB SCH ×4 (01:00→13:00)
[2017-03-28 04:15] VITALS: BP 162/79; RESP 20
[2017-03-28] MEDS: DOCUSATE SODIUM 100 MG CAP PO SCH ×2 (05:46→17:37)
[2017-03-28] MEDS: PANTOPRAZOLE (EC) 40 MG TAB PO SCH (05:46)
[2017-03-28] MEDS: LEVOFLOXACIN 500 MG TAB PO SCH (05:46)
[2017-03-28 07:54] VITALS: BP 133/66; RESP 20
[2017-03-28] MEDS: INSULIN ASPART [NOVOLOG] 3 ML PEN SC SCH ×3 (07:55→17:37)
[2017-03-28] MEDS: FUROSEMIDE 40 MG TAB PO SCH (08:43)
[2017-03-28] MEDS: TIOTROPIUM 18 MCG CAPSULE INHA DEV INH SCH (08:43)
[2017-03-28] MEDS: SPIRONOLACTONE 25 MG TAB PO SCH (08:43)
[2017-03-28] MEDS: SALMETEROL/FLUTICASONE 250/50 INHA INH SCH (08:43)
[2017-03-28] MEDS: THEOPHYLLINE (SR) 300 MG CAP PO SCH (08:44)
[2017-03-28] MEDS: predniSONE 10 MG TAB PO SCH (08:44)
[2017-03-28] MEDS: AMLODIPINE 10 MG TAB PO SCH (08:44)
[2017-03-28] MEDS: ENOXAPARIN 40 MG/0.4 ML SYG SC SCH (08:44)
[2017-03-28] MEDS: RISPERIDONE 2 MG TAB PO SCH (08:44)
--- NOTE | 2017-03-28 11:18 | PN ---
Date/Time of Note Date/Time of Note DATE: 03/28/17 TIME: 11:18 Assessment/Plan VTE Prophylaxis VTE Prophylaxis Intervention: SCD's Lines/Catheters IV Catheter Type (from Nrs): Saline Lock Urinary Cath still in place: No Assessment/Plan Assessment/Plan 1. Hypoxemic hypercapnic respiratory failure- improving - Patient states she's doing better and does not need oxygen support. Discussed need for SNF prior to discharge to board and care. - She is requiring 3L O2 to maintain saturations >90% but states she will not need oxygen on discharge 2. Chronic obstructive pulmonary disease with acute hypoxemic respiratory failure. - Pulm on board and recommendations appreciated - bronchodilators, Levaquin and steroids. 3. Underlying history of tobacco use. - smoking cessation discussed but refusing to quit - refused to speak with Telepsych over the monitor 4. Encephalopathy toxic and metabolic etiology - improving 5. Disposition - Patient continues to refuse all treatment except Risperdal - Discussed she is not able to go back to board and care with O2 requirement - Medically stable for discharge to SNF Subjective 24 Hr Interval Summary Free Text/Dictation Patient looking more comfortable and saturating well on 3L. Continues to refuse all medications besides Risperdal. No acute overnight events. Exam/Review of Systems Vital Signs Vitals Vital Signs Date Time Temp Pulse Resp B/P Pulse Ox O2 Delivery O2 Flow Rate FiO2 03/28/17 08:30 Nasal Cannula 3.0 03/28/17 07:54 98.5 63 20 133/66 96 03/26/17 16:37 32 Intake and Output 03/27/17 03/27/17 03/28/17 15:00 23:00 07:00 Intake Total 1500 ml 1400 ml Balance 1500 ml 1400 ml Exam Constitutional: alert, well developed. no acute distress Head: atraumatic, normocephalic Neck: supple Respiratory: crackles/rales, diminished breath sounds, No wheezing Cardiovascular: regular rate and rhythm, No edema, No murmurs/extra sounds Gastrointestinal: non-tender, soft, No distended, No rebound or guarding Musculoskeletal: nl extremities to inspection Extremities: normal pulses Medications Medications Current Medications Ondansetron HCl (Zofran Inj) 4 mg Q6H PRN IV NAUSEA AND/OR VOMITING; Start at 18:30 Acetaminophen (Tylenol Tab) 650 mg Q6H PRN PO PAIN LEVEL 1-3 OR FEVER; Start 03/17/17 at 18:30 Magnesium Hydroxide (Milk Of Mag) 30 ml DAILY PRN PO CONSTIPATION; Start 03/17 at 18:30 Pantoprazole (Protonix Tab) 40 mg DAILY@06 PO Last administered on 03/26/17 05:32; Admin Dose 40 MG; Start 03/18/17 at 06:00 Enoxaparin Sodium (Lovenox) 40 mg DAILY SC Last administered on 03/19/17 08: 50; Admin Dose 40 MG; Start 03/18/17 at 09:00 Tiotropium [place] (Spiriva) 1 inh DAILY INH Last administered on 03/18/17 11 :52; Admin Dose 1 INH; Start 03/18/17 at 10:00 Salmeterol Xinafoate/ Fluticasone (Advair 250/50 Diskus) 1 inh BID INH Last administered on 03/25/17 20:45; Admin Dose 1 INH; Start 03/18/17 at 10:00 Montelukast Sodium (Singulair) 10 mg HS PO Last administered on 03/25/17 20: 45; Admin Dose 10 MG; Start 03/18/17 at 21:00 Diagnostic Test (Pha) (Accu-Chek) 1 ea 02 XX Last administered on 03/26/17 02 :00; Admin Dose 1 EA; Start 03/19/17 at 02:00 Losartan Potassium (Cozaar) 100 mg DAILY PO Last administered on 03/18/17 10: 06; Admin Dose 100 MG; Start 03/18/17 at 09:30; Status Future Hold Spironolactone (Aldactone) 25 mg DAILY PO Last administered on 03/20/17 09:44 ; Admin Dose 25 MG; Start 03/18/17 at 09:30 Atorvastatin Calcium (Lipitor) 10 mg HS PO Last administered on 03/25/17 20: 45; Admin Dose 10 MG; Start 03/18/17 at 21:00 Miscellaneous Information 1 ea NOTE XX ; Start 03/18/17 at 10:00 Glucose (Glutose) 15 gm Q15M PRN PO DECREASED GLUCOSE; Start 03/18/17 at 10:00 Glucose (Glutose) 22.5 gm Q15M PRN PO DECREASED GLUCOSE; Start 03/18/17 at 10: 00 Dextrose (D50w Syringe) 25 ml Q15M PRN IV DECREASED GLUCOSE; Start 03/18/17 at 10:00 Dextrose (D50w Syringe) 50 ml Q15M PRN IV DECREASED GLUCOSE; Start 03/18/17 at 10:00 Glucagon (Glucagen) 1 mg Q15M PRN IM DECREASED GLUCOSE; Start 03/18/17 at 10: 00 Glucose (Glutose) 15 gm Q15M PRN BUCCAL DECREASED GLUCOSE; Start 03/18/17 at 10:00 Docusate Sodium (Colace) 100 mg Q12H PO Last administered on 03/25/17 20:44; Admin Dose 100 MG; Start 03/19/17 at 18:30 Levofloxacin (Levaquin) 500 mg DAILY@06 PO Last administered on 03/27/17 05: 39; Admin Dose 500 MG; Start 03/20/17 at 10:00 Risperidone (Risperdal) 3 mg BID PO Last administered on 03/27/17 21:01; Admin Dose 3 MG; Start 03/21/17 at 21:00 Amlodipine Besylate (Norvasc) 10 mg DAILY PO ; Start 03/23/17 at 09:00 Atorvastatin Calcium (Lipitor) 10 mg QHS PO Last administered on 03/25/17 21: 00; Admin Dose 10 MG; Start 03/22/17 at 21:00 Furosemide (Lasix) 40 mg DAILY PO ; Start 03/22/17 at 10:00 Prednisone (Prednisone) 30 mg DAILY PO ; Start 03/25/17 at 09:00 Theophylline (Bentley-24) 300 mg DAILY PO ; Start 03/24/17 at 12:00 Quetiapine Fumarate (Seroquel) 100 mg QHS PO Last administered on 03/25/17 20 :45; Admin Dose 100 MG; Start 03/24/17 at 21:00 FREYA LEGER MD Mar 28, 2017 11:18
[2017-03-28 11:26] VITALS: BP 131/60; RESP 20
--- NOTE | 2017-03-28 12:46 | CONS ---
Date/Time of Note Date/Time of Note DATE: 03/28/17 TIME: 12:45 Consult Date/Type/Reason Admit Date/Time Mar 17, 2017 at 17:44 Type of Consultation: Pulmonary Subjective Patient remains comfortable this morning. No events overnight. Continues nasal cannula oxygen. Objective Vital Signs Date Time Temp Pulse Resp B/P Pulse Ox O2 Delivery O2 Flow Rate FiO2 03/28/17 11:26 98.0 61 20 131/60 97 03/28/17 08:30 Nasal Cannula 3.0 03/26/17 16:37 32 Intake and Output 03/27/17 03/27/17 03/28/17 15:00 23:00 07:00 Intake Total 1500 ml 1400 ml Balance 1500 ml 1400 ml Exam GENERAL: Well-developed lady comfortable at rest no acute distress VITAL SIGNS: per chart NECK: Supple. No JVD or lymphadenopathy. CARDIAC EXAM: S1, S2. No added sounds or murmurs. CHEST: clear bilaterally, No added sounds, rales or wheezes ABDOMEN: Soft, nontender. No guarding or rebound. EXTREMITIES: No cyanosis, clubbing or edema. NEUROLOGIC: Generalized weakness. No focal deficits. Results/Medications Medications Current Medications Ondansetron HCl (Zofran Inj) 4 mg Q6H PRN IV NAUSEA AND/OR VOMITING; Start at 18:30 Acetaminophen (Tylenol Tab) 650 mg Q6H PRN PO PAIN LEVEL 1-3 OR FEVER; Start 03/17/17 at 18:30 Magnesium Hydroxide (Milk Of Mag) 30 ml DAILY PRN PO CONSTIPATION; Start 03/17 at 18:30 Pantoprazole (Protonix Tab) 40 mg DAILY@06 PO Last administered on 03/26/17 05:32; Admin Dose 40 MG; Start 03/18/17 at 06:00 Enoxaparin Sodium (Lovenox) 40 mg DAILY SC Last administered on 03/19/17 08: 50; Admin Dose 40 MG; Start 03/18/17 at 09:00 Tiotropium [place] (Spiriva) 1 inh DAILY INH Last administered on 03/18/17 11 :52; Admin Dose 1 INH; Start 03/18/17 at 10:00 Salmeterol Xinafoate/ Fluticasone (Advair 250/50 Diskus) 1 inh BID INH Last administered on 03/25/17 20:45; Admin Dose 1 INH; Start 03/18/17 at 10:00 Montelukast Sodium (Singulair) 10 mg HS PO Last administered on 03/25/17 20: 45; Admin Dose 10 MG; Start 03/18/17 at 21:00 Diagnostic Test (Pha) (Accu-Chek) 1 ea 02 XX Last administered on 03/26/17 02 :00; Admin Dose 1 EA; Start 03/19/17 at 02:00 Losartan Potassium (Cozaar) 100 mg DAILY PO Last administered on 03/18/17 10: 06; Admin Dose 100 MG; Start 03/18/17 at 09:30; Status Future Hold Spironolactone (Aldactone) 25 mg DAILY PO Last administered on 03/20/17 09:44 ; Admin Dose 25 MG; Start 03/18/17 at 09:30 Atorvastatin Calcium (Lipitor) 10 mg HS PO Last administered on 03/25/17 20: 45; Admin Dose 10 MG; Start 03/18/17 at 21:00 Miscellaneous Information 1 ea NOTE XX ; Start 03/18/17 at 10:00 Glucose (Glutose) 15 gm Q15M PRN PO DECREASED GLUCOSE; Start 03/18/17 at 10:00 Glucose (Glutose) 22.5 gm Q15M PRN PO DECREASED GLUCOSE; Start 03/18/17 at 10: 00 Dextrose (D50w Syringe) 25 ml Q15M PRN IV DECREASED GLUCOSE; Start 03/18/17 at 10:00 Dextrose (D50w Syringe) 50 ml Q15M PRN IV DECREASED GLUCOSE; Start 03/18/17 at 10:00 Glucagon (Glucagen) 1 mg Q15M PRN IM DECREASED GLUCOSE; Start 03/18/17 at 10: 00 Glucose (Glutose) 15 gm Q15M PRN BUCCAL DECREASED GLUCOSE; Start 03/18/17 at 10:00 Docusate Sodium (Colace) 100 mg Q12H PO Last administered on 03/25/17 20:44; Admin Dose 100 MG; Start 03/19/17 at 18:30 Levofloxacin (Levaquin) 500 mg DAILY@06 PO Last administered on 03/27/17 05: 39; Admin Dose 500 MG; Start 03/20/17 at 10:00 Risperidone (Risperdal) 3 mg BID PO Last administered on 03/27/17 21:01; Admin Dose 3 MG; Start 03/21/17 at 21:00 Amlodipine Besylate (Norvasc) 10 mg DAILY PO ; Start 03/23/17 at 09:00 Atorvastatin Calcium (Lipitor) 10 mg QHS PO Last administered on 03/25/17 21: 00; Admin Dose 10 MG; Start 03/22/17 at 21:00 Furosemide (Lasix) 40 mg DAILY PO ; Start 03/22/17 at 10:00 Prednisone (Prednisone) 30 mg DAILY PO ; Start 03/25/17 at 09:00 Theophylline (Bentley-24) 300 mg DAILY PO ; Start 03/24/17 at 12:00 Quetiapine Fumarate (Seroquel) 100 mg QHS PO Last administered on 03/25/17 20 :45; Admin Dose 100 MG; Start 03/24/17 at 21:00 Assessment/Plan Chief Complaint/Hosp Course IMPRESSION 1. Hypoxemic hypercapnic respiratory failure, resolving COPD exacerbation 2. Chronic obstructive pulmonary disease with acute hypoxemic respiratory failure. 3. Underlying history of tobacco use. 4. Resolved encephalopathy. Underlying psychiatric disorder. Plan 1. Steroids. 2. Bronchodilators. 3. Antibiotics continues Levaquin. 4. Home O2 5. Advised on smoking cessation. 6. Pneumonia and influenza vaccinations. DC planning. Problems: DEMI YARBROUGH MD, [facility] Mar 28, 2017 12:46
--- NOTE | 2017-03-28 13:24 | DS ---
Date/Time of Note Date/Time of Note DATE: 03/28/17 TIME: 13:24 Discharge Summary Admission/Discharge Info Admit Date/Time Mar 17, 2017 at 17:44 Discharge Date/Time Discharge Diagnosis 1 acute hypoxic hypercapnic respiratory failure secondary to #2 requiring oxygen Via Ventimask 2 end stage COPD with exacerbation 3 diastolic CHF 4 chronic extensive heavy tobacco use 5 hypertension: Control is improved at this time 6 dyslipidemia Patient Condition: Stable Consults Pulmonology Procedures PROCEDURE: XR Chest. 03/19 CLINICAL INDICATION: Shortness of breath. TECHNIQUE: Single frontal view of the chest was obtained COMPARISON: None FINDINGS: There is mild cardiomegaly. Aortic calcifications are present. There is mild pulmonary edema and probable trace left pleural effusion. No evidence of pneumothorax. There are degenerative changes of the spine. IMPRESSION: 1. Mild pulmonary edema with probable trace left pleural effusion. PROCEDURE: XR Chest. 03/24 CLINICAL INDICATION: Pneumonia, CHF. TECHNIQUE: Single frontal view of the chest was obtained. COMPARISON: 03/19 02:17. FINDINGS: The cardiomediastinal silhouette demonstrates enlargement of the cardiac silhouette. There are aortic calcifications. Lung volumes remain shallow with no significant change in likely pulmonary vascular congestion. Possible trace bilateral pleural effusions. No definite pneumothorax. No acute osseous abnormality. IMPRESSION: 1. Cardiomegaly with continued shallow lung volumes with no significant change in likely pulmonary vascular congestion. Possible trace bilateral pleural effusions. Hx of Present Illness 71 yo F with PMH HTN, HLD, CHF, and COPD presented to ED with no complaints. When asked what brought her to the ED she states the facility she lives at made her come. Patient is a poor historian. History obtained from ED physician. Patient has been experiencing cough with sputum production, shortness of breath , and wheezing. She was found to be saturating 67% on room air when presented to the ED. When asked ROS states everything was fine and nothing wrong with her lungs. She did make it clear she does not plan to quit smoking. She lives at a half way facility. Patient was placed on BIPAP in the ED and when removed desaturated to 84% and had audible wheezing. CXR showed mild pulmonary edema. ABG and BNP obtained but pending. Patient denies any chest pain, shortness of breath, nausea, vomiting, fevers, chills, or abdominal issues. Hospital Course 71-year-old female with chronic COPD and tobacco abuse who was admitted to the facility because of shortness of breath and COPD exacerbation. Patient initially required BiPAP therapy and has been weaned down to oxygen via facemask at 8 L a minute. However patient report has a history of paranoid schizophrenia and has been aggressive and refusing all care. She refuses all medications except her Risperdal. For a few days during her hospitalization, she even refused to speak to physicians. She would converse with some people and not talk to others. I was able to speak with the patient's brother who is her only living relative, and he assured me that the [id number] from where she was sent from are her conservators and have the power to make decisions regarding her care. We spoke with the [id number] who referred her to a primary care physician and verbalized that they will take whatever recommendations her primary care physician agrees with. I ended up speaking with her primary care physician who recommended that patient be transferred into his care and intermediate facility and he will assess her and determine how to proceed. That is the reason she keeps refusing all interventions because she wants to be discharged. I recommendation is that patient be placed on hospice care under which she can choose to refuse all interventions if that is her desire however she would not even attempt to discuss that with us here she just keeps yelling about how she needs to be that discharged home. Discharge instructions have been put in the chart and case management has been notified about the above. Patient was discharged to SNF with prescriptions for antibiotics, steroid taper, and bronchodilators. Patients conservator was informed about patients placement arrangements. Home Meds Active Scripts Prednisone* (Prednisone*) 10 Mg Tab, 10 MG PO DAILY, #21 TAB take 6 pills tomorrow take 5 pills on the next day take 4 pills on the next day take 3 pills on the next day take 2 pills on the next day take 1 pill on the next day then stop Prov:GHISLAINE PABLO 03/23/17 Montelukast Sodium* (Montelukast Sodium*) 10 Mg Tablet, 10 MG PO HS for 30 Days , TAB Prov:GHISLAINE PABLO 03/23/17 Tiotropium [place]* (Spiriva*) 18 Mcg Cap.w.dev, 1 INH INH DAILY for 30 Days Prov:GHISLAINE PABLO 03/23/17 Terbinafine* (Lamisil*) 250 Mg Tablet, 250 MG PO BID for 14 Days, TAB Prov:GHISLAINE PABLO. 03/23/17 Levofloxacin* (Levaquin*) 500 Mg Tablet, 500 MG PO DAILY@06 for 10 Days, TAB Prov:GHISLAINE PABLO. 03/23/17 Reported Medications Clobetasol/Skin Cleanser #28 ([place] 0.05% Kit) 1 Each Kt.shm.cln, 1 EACH TP DAILY 03/21/17 Ciclopirox/Skin Cleanser No.28 (CICLODAN 0.77% CREAM KIT) 544 Gm Combo..pkg, 1 APPLIC TP BID, KIT 03/21/17 Budesonide-Formoterol Fumarate* (Symbicort*) 160-4.5 Hfa.aer.ad, 2 PUFF INHALATION BID, #1 EACH 03/21/17 Risperidone (Risperdal M-Tab) 3 Mg Tab.rapdis, 3 MG PO BID 03/21/17 Nicotine (Nicotine Patch) 1 Each Patch.dysq, 1 EACH TD DAILY 03/21/17 Losartan-Hydrochlorothiazide (Losartan-HCTZ) 100-12.5 Mg Tab, 1 TAB PO DAILY, TAB 03/21/17 Furosemide* (Furosemide*) 40 Mg Tablet, 40 MG PO DAILY, TAB 03/21/17 Atorvastatin Calcium (Atorvastatin Calcium) 10 Mg Tablet, 10 MG PO QHS, #30 TAB 03/21/17 Amlodipine Besylate* (Amlodipine Besylate*) 10 Mg Tablet, 10 MG PO DAILY, #30 TAB 03/21/17 Follow-up Plan See hospital course . Primary Care Provider Lesly Alfredo [phone] Time spent on discharge: > 30 minutes FREYA LEGER MD Mar 28, 2017 13:24
[2017-03-28 16:34] VITALS: BP 139/63; RESP 20
== END 2017-03-28 18:00 | DRG 190 ==
LOC: E/R 15:53 → MS1 17:44 → TEL 03-18 15:20
PROVIDERS: ADMIT Internal Medicine; ATTEND Internal Medicine
PROC: 5A09457 Assistance with Respiratory Ventilation, 24-96 Consecutive Hours, Continuous Positive Airway Pressure (ICD-10-PCS; principal; 2017-03-17)
PROC: 4A133R1 Monitoring of Arterial Saturation, Peripheral, Percutaneous Approach (ICD-10-PCS; 2017-03-17)
DX: J44.1 Chronic obstructive pulmonary disease with (acute) exacerbation (principal); I50.33 Acute on chronic diastolic (congestive) heart failure; G92 Toxic encephalopathy; J96.01 Acute respiratory failure with hypoxia; J96.02 Acute respiratory failure with hypercapnia; E87.1 Hypo-osmolality and hyponatremia; F17.210 Nicotine dependence, cigarettes, uncomplicated; E78.5 Hyperlipidemia, unspecified; D50.9 Iron deficiency anemia, unspecified; I11.0 Hypertensive heart disease with heart failure; J20.9 Acute bronchitis, unspecified; J44.0 Chronic obstructive pulmonary disease with (acute) lower respiratory infection; E66.9 Obesity, unspecified; Z68.39 Body mass index [BMI] 39.0-39.9, adult; F25.9 Schizoaffective disorder, unspecified
CPT/HCPCS: 36415; 36600; 71010; 80048; 80053; 80069; 82803; 82962; 83036; 83540; 83735; 83880; 84100; 84484; 85025; 85610; 85730; 87081; 93005; 93306; 94640; 94644; 94660; 94664; 96374; 96375; 96376; J1940; J1630; J1650; J1815; J1956; J2405; J2916; J2920; J2930; J7030; J7512

== ENCOUNTER 2018-03-25 11:05 | Inpatient (IN) | payer MEDICARE, OTHER ==
[~2018-03-25] VITALS: Ht 162.6 cm; Wt 90.0 kg
[2018-03-25] VITALS (11 sets, daily range): BP systolic 118–153; BP diastolic 66–81; PULSE 63–110; RESP 16–20; Ht 162.6 cm; Wt 90.0 kg
[~2018-03-25 11:05] MED LIST: AMLO-147 PO; ATOR10TA65 PO; BUDE6HFA INHALATION; CICL544C TP; CLOB1KT.5 TP; FURO40TA4 PO; LEVO500T48 PO; LOSA1TAB28 PO; MONT10TA24 PO; NICO-491 TD; PRED10TA PO; RISP3TAB PO; TERB250T46 PO; TIOT18CA INH
[2018-03-25] MEDS ORDERED: ALBUTEROL 0.083% (NEB) 2.5 MG/3 ML AMP INH STA (11:20)
[2018-03-25] MEDS ORDERED: CEFTRIAXONE 1 GM/50 ML (PMX) 50 ML IVPB STA (11:20)
[2018-03-25] MEDS ORDERED: AZITHROMYCIN 500MG/NS (PMX) 250 ML IV STA (11:20)
[2018-03-25] MEDS ORDERED: SODIUM CHLORIDE 0.9% 1L BAG IV* STA (11:20)
[2018-03-25] MEDS ORDERED: IPRATROPIUM (NEB) 0.5 MG/2.5 ML AMP INH STA (11:20)
--- NOTE | 2018-03-25 11:43 | ERD ---
ER Documentation Chief Complaint Chief Complaint BIB RA FOR EVAL OF SOB HPI 72-year-old female brought in by ambulance from her boarding care for evaluation of shortness of breath and eye redness. Patient has a history of CHF and COPD. She continues to smoke. She denies any significant shortness of breath or chest pain. She does not use oxygen at baseline. She is not using her medications as prescribed. No fevers or chills. No hemoptysis but she does admit to cough with phlegm production. ROS All systems reviewed and are negative except as per history of present illness. Medications Home Meds Reported Medications Risperidone* (Risperidone*) 3 Mg Tablet, 3 MG PO BID, TAB 03/25/18 Losartan-Hydrochlorothiazide (Losartan-HCTZ) 100-12.5 Mg Tab, 1 TAB PO DAILY, TAB 03/25/18 Furosemide* (Furosemide*) 40 Mg Tablet, 40 MG PO DAILY, TAB 03/25/18 Atorvastatin Calcium (Atorvastatin Calcium) 10 Mg Tablet, 10 MG PO QHS, #30 TAB 03/25/18 Amlodipine Besylate* (Amlodipine Besylate*) 10 Mg Tablet, 10 MG PO DAILY, #30 TAB 03/25/18 Discontinued Reported Medications Clobetasol/Skin Cleanser #28 ([place] 0.05% Kit) 1 Each Kt.shm.cln, 1 EACH TP DAILY 03/21/17 Ciclopirox/Skin Cleanser No.28 (CICLODAN 0.77% CREAM KIT) 544 Gm Combo..pkg, 1 APPLIC TP BID, KIT 03/21/17 Budesonide-Formoterol Fumarate* (Symbicort*) 160-4.5 Hfa.aer.ad, 2 PUFF INHALATION BID, #1 EACH 03/21/17 Risperidone (Risperdal M-Tab) 3 Mg Tab.rapdis, 3 MG PO BID 03/21/17 Nicotine (Nicotine Patch) 1 Each Patch.dysq, 1 EACH TD DAILY 03/21/17 Losartan-Hydrochlorothiazide (Losartan-HCTZ) 100-12.5 Mg Tab, 1 TAB PO DAILY, TAB 03/21/17 Furosemide* (Furosemide*) 40 Mg Tablet, 40 MG PO DAILY, TAB 03/21/17 Atorvastatin Calcium (Atorvastatin Calcium) 10 Mg Tablet, 10 MG PO QHS, #30 TAB 03/21/17 Amlodipine Besylate* (Amlodipine Besylate*) 10 Mg Tablet, 10 MG PO DAILY, #30 TAB 03/21/17 Discontinued Scripts Prednisone* (Prednisone*) 10 Mg Tab, 10 MG PO DAILY, #21 TAB take 6 pills tomorrow take 5 pills on the next day take 4 pills on the next day take 3 pills on the next day take 2 pills on the next day take 1 pill on the next day then stop Prov:GHISLAINE PABLO 03/23/17 Montelukast Sodium* (Montelukast Sodium*) 10 Mg Tablet, 10 MG PO HS for 30 Days, TAB [facility] 03/23/17 Tiotropium [place]* (Spiriva*) 18 Mcg Cap.w.dev, 1 INH INH DAILY for 30 Days Prov:[facility] 03/23/17 Terbinafine* (Lamisil*) 250 Mg Tablet, 250 MG PO BID for 14 Days, TAB Prov:[facility] 03/23/17 Levofloxacin* (Levaquin*) 500 Mg Tablet, 500 MG PO DAILY@06 for 10 Days, TAB Prov:GHISLAINE PABLO . 03/23/17 Allergies Allergies: Coded Allergies: No Known Allergy (Unverified , 03/25/18) PMhx/Soc History of Surgery: No Anesthesia Reaction: No Hx Neurological Disorder: Yes (DEMENTIA) Hx Respiratory Disorders: Yes (COPD;PE) Hx Cardiac Disorders: Yes (CHF; HTN.) Hx Psychiatric Problems: Yes (DEMENTIA) Hx Miscellaneous Medical Probl: Yes (Current smoker ) Hx Alcohol Use: No Hx Substance Use: No Hx Tobacco Use: Yes FmHx Family History: No diabetes Physical Exam Vitals Vital Signs Date Temp Pulse Resp B/P (MAP) Pulse Ox O2 O2 Flow FiO2 Time Delivery Rate 03/25/18 98.3 70 20 139/67 100 Non 12:00 (91) Rebreather 03/25/18 77 22 100 Non 15.0 100 11:52 Rebreather Mask 03/25/18 Nasal 11:30 Cannula 03/25/18 Non 10 11:20 Rebreather 03/25/18 98.5 62 20 140/70 71 11:18 (93) 03/25/18 98.9 65 20 136/67 98 Room Air 11:05 (90) Physical Exam Const: Disheveled, unkempt, in respiratory distress with audible wheezing. Obese Head: Atraumatic Eyes: Normal Conjunctiva ENT: Normal External Ears, Nose and Mouth. Neck: Full range of motion. No meningismus. Resp: tachypneic. Diffuse expiratory wheezing with poor air movement Cardio: Tachycardic, regular rhythm, no murmurs Abd: Soft, non tender, non distended. Normal bowel sounds Skin: No petechiae or rashes Back: No midline or flank tenderness Ext: No cyanosis, or edema Neur: Awake and alert, normal speech, moving all extremities spontaneously Psych: Normal Mood and Affect Result Diagram: 03/25/18 1130 03/25/18 1130 Results 24 hrs Laboratory Tests Test 03/25/18 11:30 03/25/18 11:42 03/25/18 12:20 White Blood Count 8.8 10^3/ul Red Blood Count 3.93 10^6/ul Hemoglobin 11.3 g/dl Hematocrit 36.9 % Mean Corpuscular Volume 93.9 fl Mean Corpuscular 28.8 pg Hemoglobin Mean Corpuscular 30.6 g/dl Hemoglobin Concent Red Cell Distribution 14.6 % Width Platelet Count 298 10^3/UL Mean Platelet Volume 10.8 fl Immature Granulocytes % 0.300 % Neutrophils % % Segmented Neutrophils 65 % % (Manual) Lymphocytes % % Lymphocytes % (Manual) 22 % Monocytes % % Monocytes % (Manual) 10 % Eosinophils % % Eosinophils % (Manual) 1 % Basophils % % Basophils % (Manual) 2 % Nucleated Red Blood 1 % Cells % Immature Granulocytes # 0.030 10^3/ul Neutrophils # 10^3/ul Lymphocytes (Manual) 1.9 10^3/ul Lymphocytes # 10^3/ul Monocytes # 10^3/ul Monocytes # (Manual) 0.8 10^3/ul Eosinophils # 10^3/ul Basophils # 10^3/ul Basophils # (Manual) 0.1 10^3/ul Nucleated Red Blood 10^3/ul Cells # Platelet Estimate NORMAL Polychromasia 2+ Anisocytosis 1+ Macrocytosis 1+ Prothrombin Time 12.2 Sec Prothrombin Time Ratio 1.0 INR International 0.90 Normalized Ratio Activated 24.7 Sec Partial Thromboplast Time Sodium Level 141 mmol/L Potassium Level 3.9 mmol/L Chloride Level 98 mmol/L Carbon Dioxide Level 34 mmol/L Anion Gap 9 Blood Urea Nitrogen 21 mg/dl Creatinine 0.60 mg/dl Est Glomerular Filtrat mL/min Rate mL/min Glucose Level 97 mg/dl Calcium Level 8.8 mg/dl Total Bilirubin 0.2 mg/dl Direct Bilirubin 0.00 mg/dl Indirect Bilirubin 0.2 mg/dl Aspartate Amino 29 IU/L Transf (AST/SGOT) Alanine 19 IU/L Aminotransferase (ALT/SG PT) Alkaline Phosphatase 83 IU/L Troponin I 0.022 ng/ml B-Type Natriuretic 1800 PG/ML Peptide Total Protein 7.8 g/dl Albumin 3.7 g/dl Globulin 4.10 g/dl Albumin/Globulin Ratio 0.90 Blood Gas Specimen Blood venous Source Arterial Blood Date 03/25/2018 12:00:36 PM Drawn Arterial Blood Gas VENOUS LINE Puncture Site [place]he Test N/A Venous Blood pH 7.290 Venous Blood pCO2 75.6 mmHG (Temp Corrected) Venous Blood pO2 35.1 mmHG (Temp Corrected) Venous Blood HCO3 35.5 mmol/L Venous Blood Oxygen 61.6 mmHG Saturation Venous Blood Base Excess 6.0 mmol/L Venous Blood Total 14.6 g/dl Hemoglobin Venous Blood 57.3 % Oxyhemoglobin Venous Blood 0.3 % Methemoglobin Carboxyhemoglobin 6.7 % Blood Gas Temperature 37.0 C Blood Gas Modality MASK - NRB FiO2 100.0 % Blood Gas Notified Whom [place] Blood Gas Notified Time 03/25/2018 12:13:28 PM POC Venous Lactate 2.4 mmol/L Current Medications Medications Dose Sig/Steven Start Time Status Last (Trade) Ordered Route PRN Stop Time Admin Dose Reason Admin Albuterol 5 mg ONCE STAT 03/25/18 DC 03/25/18 (Proventil INH 11:20 11:51 0.083% (Neb)) 03/25/18 11:27 Ipratropium 0.5 mg ONCE STAT 03/25/18 DC 03/25/18 [place] INH 11:20 11:51 (Atrovent 03/25/18 0.02% 11:27 (Neb)) Sodium 1,640 ml BOLUS OVER 2 03/25/18 DC 03/25/18 Chloride HOURS STAT 11:20 12:04 (NS) IV* 03/25/18 11:27 Ceftriaxone 50 ml @ ONCE STAT 03/25/18 DC 03/25/18 Sodium 100 mls/hr IVPB 11:20 11:49 03/25/18 11:49 Azithromycin 250 ml @ ONCE STAT 03/25/18 DC 03/25/18 250 mls/hr IV 11:20 12:03 03/25/18 12:19 10 mg ONCE ONCE 03/25/18 DC 03/25/18 Dexamethasone IV 12:00 11:49 (Decadron) 03/25/18 12:01 Procedures/MDM EMERGENT LABS AND DIAGNOSTIC STUDIES: Lab Results above were reviewed and interpreted by me. CBC: no anemia or evidence of infection CMP: No evidence of electrolyte abnormality, renal failure, hypoglycemia, liver failure, or biliary obstruction Troponin within normal limits, not indicative of cardiac ischemia Lactate elevated, consistent with severe sepsis versus tissue hypoperfusion BNP elevated Influenza negative VBG shows mild acidosis with hypercapnia 12-lead EKG was interpreted by Raul De La Cruz MD: Sinus rhythm with PACs at 65 bpm Normal axis Normal intervals Anterior Q waves No acute ST or T wave changes suggestive of acute ischemia or STEMI. Radiology Results as interpreted by Radiology below were reviewed by Doug De La Cruz MD: Chest x-ray: IMPRESSION: Moderate cardiomegaly. Bibasilar increased interstitial changes and a small left pleural effusion, suspicious for pulmonary vascular congestion. Slightly more focal right lower lobe consolidation may represent associated pneumonia. Calcified aorta consistent with atherosclerotic disease. .Quinton Bellamy MD, Date Time Electronically viewed and signed by .Quinton Bellamy MD, on 03/25/2018 12:03 Initial Nursing notes reviewed. Previous Medical Records requested via the Electronic Health Record. EMERGENCY DEPARTMENT COURSE / MEDICAL DECISION MAKING: The patient is presenting with evidence of COPD versus CHF exacerbation with chest x-ray showing possible consolidation consistent with pneumonia. Vitals were notable for severe hypoxia on room air. This improved with supplemental oxygen. Sepsis workup was initiated. Broad-spectrum antibiotics, steroids, and breathing treatments given. Patient's infectious symptoms have not stabilized and the patient is at risk of rapid decompensation. The patient will be admitted for careful hydration, antibiotic therapy, and infectious source control. Severe Sepsis Assessment: Infectious Source: Pneumonia End organ damage indicated by: Lactate > 2.0 mmol/L Acute Resp Failure (sat < 92% w/o oxygen) Severe Sepsis Managment: Blood Cultures X 2 before broad spectrum antibiotics initiated within 3 hours of recognition. 30 ml/kg NS bolus Completed Initial Lactate: 2.4 Repeat Lactate pending at time of admission Critical Care: Time: 35 minutes Treatments/Evaluations: Emergent fluid management, while maintaining close respiratory support. Immediate broad spectrum antibiotic therapy. Simultaneous assessment for possible sources in order to direct therapy. Consideration for invasive and chemical support to prevent respiratory or cardiac collapse. Septic Shock Assessment (1 hour post 30 ml/kg fluid bolus): Hypotension (SBP < 90 or 40 mmHg drop, MAP < 65): No Lactic acid > 4.0 No Accepting Care Team: Current data and ongoing care discussed. Time: Time of admission Primary Provider: Dr. Damico Outstanding Data: none Departure Diagnosis: Primary Impression: COPD with exacerbation Additional Impressions: CHF exacerbation Heart failure type: unspecified Qualified Codes: I50.9 - Heart failure, unspecified Severe sepsis Pneumonia Pneumonia type: due to unspecified organism Laterality: unspecified laterality Lung location: unspecified part of lung Qualified Codes: J18.9 - Pneumonia, unspecified organism Acute respiratory failure with hypoxia and hypercapnia Condition: Serious RAUDEL DE LA CRUZ MD Mar 25, 2018 11:43
[2018-03-25] MEDS ORDERED: DEXAMETHASONE 10 MG/ML 1 ML INJ IV ONE (12:00)
[2018-03-25] MEDS ORDERED: AMLO-147 PO (12:59)
[2018-03-25] MEDS ORDERED: FURO40TA4 PO (12:59)
[2018-03-25] MEDS ORDERED: LOSA1TAB28 PO (12:59)
[2018-03-25] MEDS ORDERED: ATOR10TA65 PO (12:59)
[2018-03-25] MEDS ORDERED: ACETAMINOPHEN 325 MG TAB PO PRN ×2 (13:00→14:00)
[2018-03-25] MEDS ORDERED: RISP3TAB3 PO (13:00)
[2018-03-25] MEDS ORDERED: ONDANSETRON 4 MG INJ IV PRN ×2 (13:00→14:00)
[2018-03-25] MEDS ORDERED: NACL 0.9% 3 ML SYG IV SCH (14:00)
--- NOTE | 2018-03-25 14:08 | HP ---
Date/Time of Note Date/Time of Note DATE: 03/25/18 TIME: 13:51 Assessment/Plan VTE Prophylaxis Pharmacological prophylaxis: LMWH Lines/Catheters IV Catheter Type (from Nrs): Saline Lock Assessment/Plan Assessment/Plan 72 yo woman presents from board and care with COPD exacerbation. #COPD with exacerbation - Hypoxic on arrival, saturating 70% on room air. Wheezing. - Etiology: Consolidation seen on CXR. In absence of other clear triggers will treat for CAP. - Bronchodilators: albuterol/atrovent nebs until resolves, then resume home spiriva - Oxygen: Currently requiring 15L facemask. Will admit to telemetry. - Steroids: Prednisone 40mg x5 days per GOLD guidelines #Pneumonia, community-acquired. - Ceftriaxone + azithromycin IV. Will transition to fluroquinolone outpatient. - Flu negative. #CHF - TTE in 03/2017 with EF 65% - BNP today is 1800. 1 year ago was 800. - She appears to have mild fluid overload on CXR and exam, although this is likely not the cause of her acute respiratory failure. - Will pursue IV diuresis. #HTN - Cont home norvasc, losartan, HCTZ. #Smoker - Smokes 1 ppd. - Nicotine patch while inpatient. - Will consult social work for cessation resources. #Dyslipidemia - atorvastatin #Psych disorder NOS - Continue home Risperidal - No acute psychosis symptoms. DVT: lovenox GI: None Result Diagram: 03/25/18 1130 03/25/18 1130 Results 24hrs Laboratory Tests Test 03/25/18 11:30 03/25/18 11:42 03/25/18 12:20 White Blood Count 8.8 Red Blood Count 3.93 L Hemoglobin 11.3 L Hematocrit 36.9 L Mean Corpuscular Volume 93.9 Mean Corpuscular 28.8 L Hemoglobin Mean Corpuscular 30.6 L Hemoglobin Concent Red Cell Distribution 14.6 H Width Platelet Count 298 # Mean Platelet Volume 10.8 H Immature Granulocytes % 0.300 Neutrophils % Segmented Neutrophils 65 % (Manual) Lymphocytes % Lymphocytes % (Manual) 22 Monocytes % Monocytes % (Manual) 10 Eosinophils % Eosinophils % (Manual) 1 Basophils % Basophils % (Manual) 2 Nucleated Red Blood 1 H Cells % Immature Granulocytes # 0.030 Neutrophils # Lymphocytes (Manual) 1.9 Lymphocytes # Monocytes # Monocytes # (Manual) 0.8 Eosinophils # Basophils # Basophils # (Manual) 0.1 H Nucleated Red Blood Cells # Platelet Estimate NORMAL Polychromasia 2+ Anisocytosis 1+ Macrocytosis 1+ Prothrombin Time 12.2 Prothrombin Time Ratio 1.0 INR International 0.90 Normalized Ratio Activated 24.7 Partial Thromboplast Time Sodium Level 141 Potassium Level 3.9 Chloride Level 98 Carbon Dioxide Level 34 H Anion Gap 9 Blood Urea Nitrogen 21 H Creatinine 0.60 Est Glomerular Filtrat Rate mL/min Glucose Level 97 Calcium Level 8.8 Total Bilirubin 0.2 Direct Bilirubin 0.00 Indirect Bilirubin 0.2 Aspartate Amino 29 Transf (AST/SGOT) Alanine 19 Aminotransferase (ALT/SG PT) Alkaline Phosphatase 83 Troponin I 0.022 B-Type Natriuretic 1800 H Peptide Total Protein 7.8 Albumin 3.7 Globulin 4.10 H Albumin/Globulin Ratio 0.90 Blood Gas Specimen Blood venous Source Arterial Blood Date 03/25/2018 12:00:36 PM Drawn Arterial Blood Gas VENOUS LINE Puncture Site Vahe Test N/A Venous Blood pH 7.290 L Venous Blood pCO2 75.6 H (Temp Corrected) Venous Blood pO2 35.1 H (Temp Corrected) Venous Blood HCO3 35.5 H Venous Blood Oxygen 61.6 Saturation Venous Blood Base Excess 6.0 H Venous Blood Total 14.6 Hemoglobin Venous Blood 57.3 Oxyhemoglobin Venous Blood 0.3 Methemoglobin Carboxyhemoglobin 6.7 Blood Gas Temperature 37.0 Blood Gas Modality MASK - NRB FiO2 100.0 Blood Gas Notified Whom [place] Blood Gas Notified Time 03/25/2018 12:13:28 PM POC Venous Lactate 2.4 *H HPI/ROS Admit Date/Time Admit Date/Time Mar 25, 2018 Hx of Present Illness Ms. Barnett is a 72 yo woman brought in to the ED by ambulance for SOB. History is limited; the patient is very hard of hearing and gives inappropriate responses to questions. On exam she has profuse sputum production but she cannot clarify how long this has been going on; when her shortness of breath started, or if there have been any recent fevers. She does however report that she has not been hospitalized since her last COPD exacerbation in 03/2017. She does not take her inhalers as prescribed and she smokes 1 pack per day. In the ED she was hypoxic to 70s on room air. Otherwise vitals were normal. CXR was concerning for a RLL consolidation and bibasilar changes with small L pleural effusion. WBC was 8.8, flu negative, but lactate 2.4. Labs otherwise unremarkable. ROS Denies weight loss, fatigue, vision changes, headache, neck pain, trouble swallowing, chest pain, nausea, vomiting, PO intolerance, diarrhea, rectal bleeding, abdominal pain. PMH/Family/Social Past Medical History congestive heart failure, high cholesterol, hypertension, COPD Medications Current Medications Ondansetron HCl (Zofran Inj) 4 mg ER BRIDGE PRN IV NAUSEA AND/OR VOMITING; Start 03/25/18 at 13:00; Stop 03/26/18 at 12:59 Acetaminophen (Tylenol Tab) 650 mg ER BRIDGE PRN PO MILD PAIN(1-3)OR ELEVATED TEMP; Start 03/25/18 at 13:00; Stop 03/26/18 at 12:59 IV Flush (NS 3 ml) 3 ml PER PROTOCOL IV ; Start 03/25/18 at 14:00; Status UNV Ondansetron HCl (Zofran Inj) 4 mg Q6H PRN IV NAUSEA AND/OR VOMITING; Start 03/25/18 at 14:00; Status UNV Acetaminophen (Tylenol Tab) 650 mg Q6H PRN PO PAIN LEVEL 1-3 OR FEVER; Start 03/25/18 at 14:00; Status UNV Enoxaparin Sodium (Lovenox) 40 mg DAILY SC ; Start 03/26/18 at 09:00; Status UNV Coded Allergies: No Known Allergy (Unverified , 03/25/18) Past Surgical History Denies Social History Lives at a board and care. Alcohol Use: none Smoking Status: Current every day smoker (1 PPD) Drug Use: none Exam/Review of Systems Vital Signs Vitals Vital Signs Date Temp Pulse Resp B/P (MAP) Pulse Ox O2 O2 Flow FiO2 Time Delivery Rate 03/25/18 77 22 100 Non 15.0 100 11:52 Rebreather Mask 03/25/18 98.5 140/70 11:18 (93) Exam Exam Gen: Obese woman speaking full sentences on full facemask. Eyes: PERRL, no icterus. HEENT: Thick mucous in mouth and nose. Neck: Supple, no lymphadenopathy. Card: Regular rate and rhythm. No murmurs Pulm: Scattered expiratory wheezes throughout. Abd: Obese, soft, nontender Ext: Nonpitting LE edema. Skin: dry, dirty, well perfused. JENNIFER BOLIVAR MD Mar 25, 2018 14:01
[2018-03-25] MEDS: NICOTINE (21 MG/24 HR) PATCH TRANSDERM SCH (15:30)
--- NOTE | 2018-03-25 15:30 | NUR ---
Patient admitted from ER. Patient noted to have shortness of breath upon exertion with intermittent productive cough. Patient was presented with non-rebreather on 15L with O2 sat 98%. Oriented patient to room and call light function.
[2018-03-25] MEDS: predniSONE 20 MG TAB PO SCH (15:44)
[2018-03-25] MEDS: FUROSEMIDE 40 MG INJ IV SCH (17:48)
--- NOTE | 2018-03-25 18:43 | NUR ---
EOSS Patient is alert and oriented to person with some confusion noted. able to make needs know patient has intermittent cough with copious secretions. Able to expectorate. Patient was cleaned up and skin was check. Patient noted with dermatitis on right under breast, 2 stage II on sacralcoccyx, and redness to left wrist due to ill-fitting wristwatches (blanchable). Wound protocol initiated. pending low-airloss mattress. All needs attended to and met. Kept comfortable. Call light within reach.
[2018-03-25] MEDS: ATORVASTATIN 10 MG TAB PO SCH (21:06)
[2018-03-25] MEDS: RISPERIDONE 1 MG TAB PO SCH (21:06)
[2018-03-26] VITALS (24 sets, daily range): BP systolic 127–147; BP diastolic 60–65; PULSE 30–84; RESP 16–20
[2018-03-26] MEDS: FUROSEMIDE 40 MG INJ IV SCH ×2 (06:29→17:20)
--- NOTE | 2018-03-26 07:57 | NUR ---
RN NOTES: PT ON NRBM, 15 L. ROMEO 90%. SOB ON EXERTION. CALLED MD FOR CRITICAL ABG RESULTED AT 1932. RT SPOKE TO MD. ORDERS CARRIED OUT. PT ON BIPAP. AT 2209, PT HAD O2 SAT 86% WHILE ON BIPAP, NO SOB, PT SLEEPING. CALLED MD. ORDERS CXR AND ABG STAT, RESULTS REVIEWED BY DR. LEWIS AND COSTA/RT. PT CONDITION BETTER AFTER ALL. SLEPT WITH BIPAP ALL NIGHT. ENDORSED.
[2018-03-26] MEDS: NICOTINE (21 MG/24 HR) PATCH TRANSDERM SCH (09:00)
[2018-03-26] MEDS ORDERED: NON-FORMULARY/PATIENT OWN MED (Losartan-Hydrochlorothiazide (Losartan-HCTZ) 1 TAB) PO SCH (09:00)
[2018-03-26] MEDS: LOSARTAN 50 MG TAB PO SCH (09:16)
[2018-03-26] MEDS: predniSONE 20 MG TAB PO SCH (09:17)
[2018-03-26] MEDS: AMLODIPINE 10 MG TAB PO SCH (09:17)
[2018-03-26] MEDS: HYDROCHLOROTHIAZIDE 12.5 MG CAP PO SCH (09:17)
[2018-03-26] MEDS: RISPERIDONE 1 MG TAB PO SCH ×2 (09:17→21:52)
[2018-03-26] MEDS: ENOXAPARIN 40 MG/0.4 ML SYG SC SCH (09:34)
[2018-03-26] MEDS: ALBUTEROL/IPRATROPIUM (NEB) 3 ML AMP HHN SCH ×4 (10:16→20:16)
[2018-03-26] MEDS: COLLAGENASE 5 GM (UD JAR) TOP SCH (10:58)
[2018-03-26] MEDS: CEFTRIAXONE 1 GM/50 ML (PMX) 50 ML IVPB SCH (10:59)
--- NOTE | 2018-03-26 11:25 | NUR ---
SW: CONSULT SW received consult for smoking cessation resources. ALLISON notified SANDIE Naranjo, who will provide such resources upon d/c. SW remains available as needed.
[2018-03-26] MEDS: AZITHROMYCIN 500MG/NS (PMX) 250 ML IVPB SCH (11:49)
--- NOTE | 2018-03-26 12:08 | NUR ---
Nutrition Consult: Pt. resides in a board and care. Current diet is Cardiac and pt. hungry and wanting 2nd tray. She is edentulous and reports she does not have dentures, but very adamant about having a regular texture diet. Pt. was @[facility] last year and her wt. was 105.3kg, now 90Kg, that is 15KG wt. loss or 14%. Current edema: BL leg non-pitting. On 40mg Lasix BID. [place] [place] Recommend 2gNa diet, Double portion protein and 500mg Vit C & 220mg ZnSO4 for 14 days.
--- NOTE | 2018-03-26 15:49 | PN ---
Date/Time of Note Date/Time of Note DATE: 03/26/18 TIME: 15:46 Assessment/Plan VTE Prophylaxis Risk score (from Ns)>0 risk: 5 SCD applied (from Ns): No SCD contraindicated: other (not contraindicated) Pharmacological prophylaxis: LMWH Lines/Catheters IV Catheter Type (from [facility]): Saline Lock Assessment/Plan Assessment/Plan 72 yo woman presents from [facility] care with COPD exacerbation. #COPD with exacerbation - Hypoxic on arrival, saturating 70% on room air. Wheezing. - Etiology: Consolidation seen on CXR. In absence of other clear triggers will treat for CAP. - Bronchodilators: albuterol/atrovent nebs until resolves, then resume home spiriva - Oxygen: Currently requiring noninvasive BiPAP. - Steroids: Prednisone 40mg x5 days per GOLD guidelines #Pneumonia, community-acquired. - Ceftriaxone + azithromycin IV. Will transition to fluroquinolone outpatient. - Flu negative. #CHF - TTE in 03/2017 with EF 65% - BNP today is 1800. 1 year ago was 800. - She appears to have mild fluid overload on CXR and exam, although this is likely not the cause of her acute respiratory failure. - Lasix 40 IV BID #HTN - Cont home norvasc, losartan, HCTZ. #Smoker - Smokes 1 ppd. - Nicotine patch while inpatient. - social work for cessation resources. #Dyslipidemia - atorvastatin #Psych disorder NOS - Continue home Risperidal - No acute psychosis symptoms. DVT: lovenox GI: None Result Diagram: 03/26/18 0635 03/26/18 0635 Results 24hrs Laboratory Tests Test 03/25/18 19:31 03/25/18 23:18 03/26/18 06:35 03/26/18 11:50 Blood Gas Blood arterial Blood Blood Specimen arterial arterial Source Arterial Blood 03/25/2018 7:40 03/25/2018 11: 03/26/2018 1:3 Date Drawn :16 PM 30:07 PM 0:12 PM Arterial Blood 7.193 *L 7.251 *L 7.340 L pH (Temp corrected ) Arterial Blood 75.5 H 74.3 H 56.6 H pCO2 (Temp correct) Arterial Blood 73.0 L 67.5 L 68.7 L pO2 (Temp corrected ) Arterial Blood 28.4 H 31.9 H 29.9 H HCO3 Arterial Blood -1.5 2.7 3.0 Base Excess Arterial Blood 90.9 L 91.4 L 92.1 L Oxygen Saturati on Vahe Test ACCEPTAB ACCEPTAB ACCEPTAB Arterial Blood Right Radial Right Radial Right Gas Brachial Puncture Site Arterial 2.1 1.3 0.6 Blood Carboxyhe moglobin Arterial Blood 0.2 0.3 0.2 Methemoglobin Blood Gas A-a 564.5 H 388.3 H 187.8 H O2 Differential Oxyhemoglobin 88.8 L 89.9 L 91.4 L Percent Blood Gas 37.0 37.0 37.0 Temperature Blood Gas MASK - NRB MASK - BIPAP MASK - BIPAP Modality FiO2 100.0 75.0 45.0 Blood Gas Christina LYONS RN ALFREDO, RN Critical Value Read Back Blood Gas UP MG DT Notified Whom Blood Gas 03/25/2018 7:57 03/25/2018 11: 03/26/2018 1:4 Notified Time :33 PM 40:40 PM 2:06 PM Blood Gas 20.0 24.0 Respiration Rate Blood Gas 25 24 Actual Respiration Rat e Blood Gas Tidal 504.0 Volume Blood Gas 15/5 IPAP/EPAP Ratio White Blood 8.0 Count Red Blood Count 3.70 L Hemoglobin 10.6 L Hematocrit 35.4 L Mean 95.7 Corpuscular Volume Mean 28.6 L Corpuscular Hemoglobin Mean 29.9 L Corpuscular Hemoglobin Conc ent Red Cell 14.7 H Distribution Width Platelet Count 273 Mean Platelet 10.7 H Volume Immature 0.900 H Granulocytes % Neutrophils % Segmented 80 H Neutrophils % (Manual) Lymphocytes % Lymphocytes % 11 L (Manual) Reactive 2 H Lymphocytes % (Manual) Monocytes % Monocytes % 7 (Manual) Eosinophils % Basophils % Nucleated Red 0.0 Blood Cells % Immature 0.070 H Granulocytes # Neutrophils # Lymphocytes 0.8 (Manual) Lymphocytes # Reactive 0.1 H Lymphocytes # Monocytes # Monocytes # 0.5 (Manual) Eosinophils # Basophils # Nucleated Red Blood Cells # Platelet NORMAL Estimate Polychromasia 2+ Sodium Level 141 Potassium Level 4.6 Chloride Level 99 Carbon Dioxide 33 H Level Anion Gap 9 Blood Urea 25 H Nitrogen Creatinine 0.75 Est Glomerular Filtrat Rate mL/min Glucose Level 132 Hemoglobin A1c 5.4 Calcium Level 8.7 Phosphorus 4.7 Level Magnesium Level 2.3 Total Bilirubin 0.1 L Direct 0.00 Bilirubin Indirect 0.1 Bilirubin Aspartate Amino 23 Transf (AST/SGO T) Alanine 27 Aminotransferas e (ALT/SGPT) Alkaline 75 Phosphatase Total Protein 7.1 Albumin 3.7 Globulin 3.40 H Albumin/Globuli 1.08 n Ratio Triglycerides 55 Level Cholesterol 161 Level LDL 89 Cholesterol, Calculated HDL Cholesterol 61 Cholesterol/HDL 2.6 Ratio Thyroid 1.310 Stimulating Hormone (TSH) Blood Gas 20/5 Pressure Support Subjective 24 Hr Interval Summary Free Text/Dictation Required BiPAP overnight and most of today. Did not receive any duonebs last night which were ordered prn. I changed it to standing this morning. Exam/Review of Systems Vital Signs Vitals Vital Signs Date Temp Pulse Resp B/P (MAP) Pulse Ox O2 O2 Flow FiO2 Time Delivery Rate 03/26/18 97.5 64 17 134/64 100 15:30 (87) 03/26/18 45 13:59 03/26/18 Nasal 6.0 10:49 Cannula Intake and Output 03/25/18 03/25/18 03/26/18 1515:00 23:00 07:00 IntakeIntake Total 400 ml 250 ml OutputOutput Total 2 ml BalanceBalance 398 ml 250 ml Exam Gen: Obese woman speaking full sentences on full facemask. Eyes: PERRL, no icterus. HEENT: Moist mucous membranes Neck: Supple, no lymphadenopathy. Card: Regular rate and rhythm. No murmurs Pulm: Scattered expiratory wheezes throughout. Abd: Obese, soft, nontender Ext: Nonpitting LE edema. Skin: dry, dirty, well perfused. Medications Medications Current Medications IV Flush (NS 3 ml) 3 ml PER PROTOCOL IV ; Start 03/25/18 at 14:00 Ondansetron HCl (Zofran Inj) 4 mg Q6H PRN IV NAUSEA AND/OR VOMITING; Start 03/25/18 at 14:00 Acetaminophen (Tylenol Tab) 650 mg Q6H PRN PO PAIN LEVEL 1-3 OR FEVER; Start 03/25/18 at 14:00 Enoxaparin Sodium (Lovenox) 40 mg DAILY SC Last administered on 03/26/18at 09:34; Admin Dose 40 MG; Start 03/26/18 at 09:00 Amlodipine Besylate (Norvasc) 10 mg DAILY PO Last administered on 03/26/18at 09:17; Admin Dose 10 MG; Start 03/26/18 at 09:00 Atorvastatin Calcium (Lipitor) 10 mg QHS PO Last administered on 03/25/18 21:06; Admin Dose 10 MG; Start 03/25/18 at 21:00 Risperidone (Risperdal) 3 mg BID PO Last administered on 03/26/18 09:17; Admin Dose 3 MG; Start 03/25/18 at 21:00 Albuterol/ Ipratropium (Duoneb) 3 ml Q4H PRN NEB wheezing; Start 03/25/18 at 14:00 Ceftriaxone Sodium 50 ml @ 100 mls/hr Q24H IVPB Last administered on 03/26/18 10:59; Admin Dose 100 MLS/HR; Start 03/26/18 at 11:00 Azithromycin 250 ml @ 250 mls/hr Q24H IVPB Last administered on 03/26/18 11 :49; Admin Dose 250 MLS/HR; Start 03/26/18 at 11:00 Nicotine (Nicoderm 21 Mg/ 24hr) 1 patch DAILY TRANSDERM ; Start 03/25/18 at 15:30 Losartan Potassium (Cozaar) 100 mg DAILY PO Last administered on 03/26/18 09:16; Admin Dose 100 MG; Start 03/26/18 at 09:00 Prednisone (Prednisone) 40 mg DAILY PO Last administered on 03/26/18 09:17; Admin Dose 40 MG; Start 03/25/18 at 14:00; Stop 03/30/18 at 11:00 Hydrochlorothiazide (Hydrochlorothiazide) 12.5 mg DAILY PO Last administered on 03/26/18 09:17; Admin Dose 12.5 MG; Start 03/26/18 at 09:00 Furosemide (Lasix) 40 mg BID DIURETICS IV Last administered on 03/26/18 06:29; Admin Dose 40 MG; Start 03/25/18 at 18:00 Albuterol/ Ipratropium (Duoneb) 3 ml Q4H RESP THERAPY HHN Last administered on 03/26/18 13:59; Admin Dose 3 ML; Start 03/26/18 at 09:00 Collagenase (Santyl) 1 applic DAILY TOP Last administered on 03/26/18 10:58; Admin Dose 1 APPLIC; Start 12/25/18 at 11:00 JENNIFER BOLIVAR MD Mar 26, 2018 15:49
--- NOTE | 2018-03-26 18:07 | NUR ---
Eoss No c/o pain or discomfort at this time. Pt continues with Bipap- tolerated well. ABG improved. Pt able to sit in the chair w/ assist. x1 episode of low HR 30, Dr. Damico aware. No new order noted at this time. Pt changed to airloss mattress. Call light within reach, bed locked and Low, bed alarm on. Will endorse accordingly
[2018-03-26] MEDS: ATORVASTATIN 10 MG TAB PO SCH (21:52)
[2018-03-27] VITALS (19 sets, daily range): BP systolic 117–145; BP diastolic 52–72; PULSE 47–71; RESP 18–20
[2018-03-27] MEDS: ALBUTEROL/IPRATROPIUM (NEB) 3 ML AMP HHN SCH ×6 (01:33→20:00)
[2018-03-27] MEDS: FUROSEMIDE 40 MG INJ IV SCH ×2 (05:53→18:00)
--- NOTE | 2018-03-27 07:00 | NUR ---
RN NOTES: PT IS ON BIPAP ALL NIGHT. RT CAME TO TRIED ON N/C 6L FOR HALF AN HOUR. THEN PUT BACK ON BIPAP. SAT 88% ON BIPAP BUT PT IS COMFORTABLE ON ASSESSMENT. VS STABLE. ENDORSED.
--- NOTE | 2018-03-27 07:00 | NUR ---
SANDIE NOTES: PT STARTED SLEEP AT 1999. SON CAME TO STAY OVER NIGHT. UNABLE TO GIVE MEDS SCHEDULED AT 2100. PT WOKE UP AT 0600. MEDS 0600 GIVEN. VS STABLE. NDORSED. Addendum: 03/27/18 at 0727 by ALFREDO WONG RN DISREGARD NOTES ABOVE.
[2018-03-27] MEDS: predniSONE 20 MG TAB PO SCH (08:37)
[2018-03-27] MEDS: LOSARTAN 50 MG TAB PO SCH (08:37)
[2018-03-27] MEDS: AMLODIPINE 10 MG TAB PO SCH (08:37)
[2018-03-27] MEDS: RISPERIDONE 1 MG TAB PO SCH ×2 (08:38→20:18)
[2018-03-27] MEDS: COLLAGENASE 5 GM (UD JAR) TOP SCH (08:38)
[2018-03-27] MEDS: HYDROCHLOROTHIAZIDE 12.5 MG CAP PO SCH (08:38)
[2018-03-27] MEDS: NICOTINE (21 MG/24 HR) PATCH TRANSDERM SCH (09:00)
[2018-03-27] MEDS: ENOXAPARIN 40 MG/0.4 ML SYG SC SCH (09:04)
--- NOTE | 2018-03-27 10:20 | PN ---
Date/Time of Note Date/Time of Note DATE: 03/27/18 TIME: 10:15 Assessment/Plan VTE Prophylaxis Risk score (from Nsg)>0 risk: 4 SCD applied (from Ns): No SCD contraindicated: other (not contraindicated) Pharmacological prophylaxis: LMWH Lines/Catheters IV [facility] Saline Lock Assessment/Plan Assessment/Plan 72 yo woman presents from [facility] and care with COPD exacerbation. #COPD with exacerbation - Hypoxic on arrival, saturating 70% on room air. Wheezing. - Etiology: Consolidation seen on CXR. In absence of other clear triggers will treat for CAP. - Bronchodilators: albuterol/atrovent nebs until resolves, then resume home spiriva - Oxygen: Currently requiring noninvasive BiPAP. - Steroids: Prednisone 40mg x5 days per GOLD guidelines - I also will add N-acetylcysteine today as mucolytic. #Pneumonia, community-acquired. - Ceftriaxone + azithromycin IV. Will transition to fluroquinolone outpatient. - Flu negative. #CHF - TTE in 03/2017 with EF 65% - BNP today is 1800. 1 year ago was 800. - She appears to have mild fluid overload on CXR and exam, although this is likely not the cause of her acute respiratory failure. - Lasix 40 IV BID #HTN - Cont home norvasc, losartan, HCTZ. #Smoker - Smokes 1 ppd. - Nicotine patch while inpatient. - social work for cessation resources. #Dyslipidemia - atorvastatin #Psych disorder NOS - Continue home Risperidal - No acute psychosis symptoms. DVT: lovenox GI: None Result Diagram: 03/26/18 0635 03/26/18 0635 Results 24hrs Laboratory Tests Test 03/26/18 11:50 03/27/18 09:52 Blood Gas Specimen Source Blood arterial Arterial Blood Date Drawn 03/26/2018 1:30:12 PM Arterial Blood pH (Temp corrected) 7.340 L Arterial Blood pCO2 (Temp correct) 56.6 H Arterial Blood pO2 (Temp corrected) 68.7 L Arterial Blood HCO3 29.9 H Arterial Blood Base Excess 3.0 Arterial Blood Oxygen Saturation 92.1 L Vahe Test ACCEPTAB Arterial Blood Gas Puncture Site Right Brachial Arterial Blood Carboxyhemoglobin 0.6 Arterial Blood Methemoglobin 0.2 Blood Gas A-a O2 Differential 187.8 H Oxyhemoglobin Percent 91.4 L Blood Gas Temperature 37.0 Blood Gas Respiration Rate 24.0 Blood Gas Actual Respiration Rate 24 Blood Gas Modality MASK - BIPAP FiO2 45.0 Blood Gas Pressure Support 20/5 Blood Gas Notified Whom DT Blood Gas Notified Time 03/26/2018 1:42:06 PM White Blood Count 11.9 #H Red Blood Count 3.86 L Hemoglobin 11.0 L Hematocrit 37.4 Mean Corpuscular Volume 96.9 Mean Corpuscular Hemoglobin 28.5 L Mean Corpuscular Hemoglobin Concent 29.4 L Red Cell Distribution Width 14.7 H Platelet Count 294 Mean Platelet Volume 10.6 H Immature Granulocytes % 0.300 Neutrophils % 68.1 Lymphocytes % 20.2 Monocytes % 10.8 Eosinophils % 0.2 Basophils % 0.4 Nucleated Red Blood Cells % 0.0 Immature Granulocytes # 0.040 H Neutrophils # 8.1 H Lymphocytes # 2.4 Monocytes # 1.3 H Eosinophils # 0.0 Basophils # 0.1 Nucleated Red Blood Cells # 0.0 Subjective 24 Hr Interval Summary Free Text/Dictation Required BiPAP overnight. This morning on my assessment she became increasingly dyspneic off BiPAP and appeared much more comfortably with it on. Otherwise she is feeling well, no complaints. Exam/Review of Systems Vital Signs Vitals Vital Signs Date Temp Pulse Resp B/P (MAP) Pulse Ox O2 O2 Flow FiO2 Time Delivery Rate 03/27/18 64 08:00 03/27/18 97.6 18 145/67 95 BIPAP 07:25 (93) 03/27/18 45 05:19 03/27/18 6.0 03:27 Intake and Output 03/26/18 03/26/18 03/27/18 1515:00 23:00 07:00 IntakeIntake Total 300 ml 950 ml 350 ml BalanceBalance 300 ml 950 ml 350 ml Exam Gen: Obese woman breathing comfortably on BiPAP but very dyspneic on room air. Eyes: PERRL, no icterus. HEENT: Moist mucous membranes Neck: Supple, no lymphadenopathy. Card: Regular rate and rhythm. No murmurs Pulm: Coarse breath sounds throughout. Abd: Obese, soft, nontender Ext: Nonpitting LE edema. Skin: dry, dirty, well perfused. Medications Medications Current Medications IV Flush (NS 3 ml) 3 ml PER PROTOCOL IV ; Start 03/25/18 at 14:00 Ondansetron HCl (Zofran Inj) 4 mg Q6H PRN IV NAUSEA AND/OR VOMITING; Start at 14:00 Acetaminophen (Tylenol Tab) 650 mg Q6H PRN PO PAIN LEVEL 1-3 OR FEVER; Start 03/25/18 at 14:00 Enoxaparin Sodium (Lovenox) 40 mg DAILY SC Last administered on 03/27/18at 09:04; Admin Dose 40 MG; Start 03/26/18 at 09:00 Amlodipine Besylate (Norvasc) 10 mg DAILY PO Last administered on 03/27/18 08:37; Admin Dose 10 MG; Start 03/26/18 at 09:00 Atorvastatin Calcium (Lipitor) 10 mg QHS PO Last administered on 03/26/18at 21:52; Admin Dose 10 MG; Start 03/25/18 at 21:00 Risperidone (Risperdal) 3 mg BID PO Last administered on 03/27/18 08:38; Admin Dose 3 MG; Start 03/25/18 at 21:00 Albuterol/ Ipratropium (Duoneb) 3 ml Q4H PRN NEB wheezing; Start 03/25/18 at 14:00 Ceftriaxone Sodium 50 ml @ 100 mls/hr Q24H IVPB Last administered on 03/26/18at 10:59; Admin Dose 100 MLS/HR; Start 03/26/18 at 11:00 Azithromycin 250 ml @ 250 mls/hr Q24H IVPB Last administered on 03/26/18at 11:49; Admin Dose 250 MLS/HR; Start 03/26/18 at 11:00 Nicotine (Nicoderm 21 Mg/ 24hr) 1 patch DAILY TRANSDERM ; Start 03/25/18 at 15:30 Losartan Potassium (Cozaar) 100 mg DAILY PO Last administered on 03/27/18at 08:37; Admin Dose 100 MG; Start 03/26/18 at 09:00 Prednisone (Prednisone) 40 mg DAILY PO Last administered on 03/27/18at 08:37; Admin Dose 40 MG; Start 03/25/18 at 14:00; Stop 03/30/18 at 11:00 Hydrochlorothiazide (Hydrochlorothiazide) 12.5 mg DAILY PO Last administered on 03/27/18 08:38; Admin Dose 12.5 MG; Start 03/26/18 at 09:00 Furosemide (Lasix) 40 mg BID DIURETICS IV Last administered on 03/27/18at 05:53; Admin Dose 40 MG; Start 03/25/18 at 18:00 Albuterol/ Ipratropium (Duoneb) 3 ml Q4H RESP THERAPY HHN Last administered on 03/27/18at 08:57; Admin Dose 3 ML; Start 03/26/18 at 09:00 Collagenase (Santyl) 1 applic DAILY TOP Last administered on 03/27/18at 08:38; Admin Dose 1 APPLIC; Start 03/26/18 at 11:00 JENNIFER BOLIVAR MD Mar 27, 2018 10:20
[2018-03-27] MEDS: ACETYLCYSTEINE 20% 4 ML VIAL NEB SCH ×3 (10:30→19:59)
[2018-03-27] MEDS: AZITHROMYCIN 500MG/NS (PMX) 250 ML IVPB SCH (11:00)
[2018-03-27] MEDS: CEFTRIAXONE 1 GM/50 ML (PMX) 50 ML IVPB SCH (11:00)
--- NOTE | 2018-03-27 11:28 | NUR ---
SW: CONSULT SW met with patient at bedside to assess living situation and to provide appropriate resources. Patient stats she lives at a B[facility] located at [address], [place] [address]. Patient provided verbal consent to speak with the [facility] ([phone]) to confirm. SW called and spoke with intake, and was informed that this patient does reside at the [facility] located at above address, and states that she can return once medically cleared. They stated they will be picking patient up upon d/c. Patient states she does not know who she wants to verbally designate as medical spokesperson at this time. All questions/ concerns denied at this time. SW remains available as needed.
--- NOTE | 2018-03-27 15:32 | NUR ---
WOUND CARE CONSULTATION NOTE: 72 year old female admitted from SNF with COPD exacerbation requiring use of BiPap. Patient is obese, requires mod assist, on nasal cannula for meals, mild short of breath on exertion even with conversing. ASSESSMENT: - Gluteal cleft Stage 2 Pressure Injury vs Periwound moisture-associated dermatitis. Condition present on admission measuring approx 1.5x0.5x0.05cm. Mild non intact erythematous dermis layer with some pale maceration concerning for dermatitis. - Right breast moisture-related dermatitis. RECOMMENDATIONS: - Cleanse area thoroughly with mild soap and water and pat dry. May continue to apply small amount of Santyl to the wound base. Apply 3M Cavilon Skin protectant followed by barrier cream to the perineum BID and PRN incontinence/soiling. - Cleanse with mild soap and water and pat dry. Apply Nystatin powder BID under breast folds, and perineum - Padding for ears while nasal cannula in place, alternate with BiPAP padding for prophylaxis - Recommend Low air loss surface. - Reposition every 2 hours. - Float heels off bed with pillows. Discussed assessment and plan of care with SANDIE Stuart. RN to obtain wound care recommendations from . Ute Carpenter, RN, MSN, CCRN, WCC
[2018-03-27] MEDS: ATORVASTATIN 10 MG TAB PO SCH (20:18)
[2018-03-28] VITALS (12 sets, daily range): BP systolic 126–141; BP diastolic 64–71; PULSE 55–75; RESP 18–20
[2018-03-28] MEDS: ALBUTEROL/IPRATROPIUM (NEB) 3 ML AMP HHN SCH ×4 (01:30→13:33)
[2018-03-28] MEDS: ACETYLCYSTEINE 20% 4 ML VIAL NEB SCH ×4 (01:30→19:23)
[2018-03-28] MEDS: FUROSEMIDE 40 MG INJ IV SCH ×2 (06:18→17:50)
--- NOTE | 2018-03-28 07:26 | NUR ---
End of shift notes: Vital signs remains stable. Denies any pain during the shift. Ambulates to the bathroom with assist, with slight SOB noted. Needs attended. Refused BIPAP at night. Will continue to monitor . Orders reviewed and acknowledged.
[2018-03-28] MEDS: HYDROCHLOROTHIAZIDE 12.5 MG CAP PO SCH (10:33)
[2018-03-28] MEDS: CEFTRIAXONE 1 GM/50 ML (PMX) 50 ML IVPB SCH (10:33)
[2018-03-28] MEDS: NICOTINE (21 MG/24 HR) PATCH TRANSDERM SCH (10:33)
[2018-03-28] MEDS: RISPERIDONE 1 MG TAB PO SCH ×2 (10:34→21:06)
[2018-03-28] MEDS: AMLODIPINE 10 MG TAB PO SCH (10:34)
[2018-03-28] MEDS: predniSONE 20 MG TAB PO SCH (10:34)
[2018-03-28] MEDS: LOSARTAN 50 MG TAB PO SCH (10:35)
[2018-03-28] MEDS: ENOXAPARIN 40 MG/0.4 ML SYG SC SCH (10:41)
--- NOTE | 2018-03-28 10:58 | NUR ---
PT Evaluation note: S: 72 yo woman presents from [facility] with COPD exacerbation. PREC: 02 supplement, fall prec. minimal impulsivity, SELAWIK PLOF Patient [facility] in [facility] who was independent with ADL and ambulation using FWW per pt. Plan is to go back to [facility] upon DC. order received for PT consult. pt up in chair and agreeable to participate, on 4 LPM 02 supplement, RN in charge Ruthy cleared PT to proceed. CLOF: Patient only requires CGA/SBA for transfers due to minimal impulsivity and SELAWIK. min/CGA for ambulation using FWW tolerated about 80 feet, no C/O SOB however pt noted to have shallow breathing. A: Patient can benefit from f/u HHPT and back to [facility] for continue care. P: Cont PT and progress as able. Will be seen once a day, 5x/wk for 1 wk or LOS or until goals met.
[2018-03-28] MEDS: AZITHROMYCIN 500MG/NS (PMX) 250 ML IVPB SCH (12:05)
--- NOTE | 2018-03-28 13:48 | PN ---
Date/Time of Note Date/Time of Note DATE: 03/28/18 TIME: 13:45 Assessment/Plan VTE Prophylaxis Risk score (from Ns)>0 risk: 3 SCD applied (from Ns): No SCD contraindicated: other (no) Pharmacological prophylaxis: LMWH Lines/Catheters IV [facility]ter [facility]from [facility] Saline Lock Assessment/Plan Assessment/Plan 72 yo woman presents from board and care with COPD exacerbation. #COPD with exacerbation - Hypoxic on arrival, saturating 70% on room air. Wheezing. - Etiology: Consolidation seen on CXR. In absence of other clear triggers will treat for CAP. - Bronchodilators: albuterol/atrovent nebs until resolves, then resume home spiriva - Oxygen: On BiPAP yesterday; now on nasal cannula. - Steroids: Prednisone 40mg x5 days per GOLD guidelines - N-acetylcysteine as mucolytic. #Pneumonia, community-acquired. - Ceftriaxone + azithromycin IV. Will transition to fluroquinolone outpatient. - Flu negative. #CHF - TTE in 03/2017 with EF 65% - BNP today is 1800. 1 year ago was 800. - She appears to have mild fluid overload on CXR and exam, although this is likely not the cause of her acute respiratory failure. - Lasix 40 IV BID #HTN - Cont home norvasc, losartan, HCTZ. #Smoker - Smokes 1 ppd. - Nicotine patch while inpatient. - social work for cessation resources. #Dyslipidemia - atorvastatin #Psych disorder NOS - Continue home Risperidal - No acute psychosis symptoms. DVT: lovenox GI: None Dispo: Anticipate discharge in 1-2 days when off oxygen. Result Diagram: 03/28/18 0556 03/28/18 0556 Results 24hrs Laboratory Tests Test 03/28/18 05:56 White Blood Count 9.0 # Red Blood Count 3.92 L Hemoglobin 11.1 L Hematocrit 37.0 Mean Corpuscular Volume 94.4 Mean Corpuscular Hemoglobin 28.3 L Mean Corpuscular Hemoglobin Concent 30.0 L Red Cell Distribution Width 14.7 H Platelet Count 240 Mean Platelet Volume 11.9 H Immature Granulocytes % 0.600 H Neutrophils % 63.9 Lymphocytes % 25.8 Monocytes % 8.7 Eosinophils % 0.6 Basophils % 0.4 Nucleated Red Blood Cells % 0.0 Immature Granulocytes # 0.050 H Neutrophils # 5.7 Lymphocytes # 2.3 Monocytes # 0.8 Eosinophils # 0.1 Basophils # 0.0 Nucleated Red Blood Cells # 0.0 Sodium Level 140 Potassium Level 4.4 Chloride Level 96 L Carbon Dioxide Level 36 H Anion Gap 8 Blood Urea Nitrogen 25 H Creatinine 0.60 Est Glomerular Filtrat Rate mL/min Glucose Level 106 Calcium Level 8.9 Phosphorus Level 3.8 Magnesium Level 2.2 Subjective 24 Hr Interval Summary Free Text/Dictation No acute overnight events. Apparently patient did not require BiPAP last night. Significantly improved today. On 4L nasal cannula. Was able to walk with PT about 80 feet with oxygen. Exam/Review of Systems Vital Signs Vitals Vital Signs Date Temp Pulse Resp B/P (MAP) Pulse Ox O2 O2 Flow FiO2 Time Delivery Rate 03/28/18 4.0 13:32 03/28/18 82 20 94 Nasal 13:32 Cannula 03/28/18 98.0 126/67 11:13 (86) 03/27/18 45 12:00 Intake and Output 03/27/18 03/27/18 03/28/18 1515:00 23:00 07:00 IntakeIntake Total 1050 ml 850 ml BalanceBalance 1050 ml 850 ml Exam Gen: Obese woman breathing comfortably on nasal cannula Eyes: PERRL, no icterus. HEENT: Moist mucous membranes Neck: Supple, no lymphadenopathy. Card: Regular rate and rhythm. No murmurs Pulm: Clear to auscultation bilaterally. Abd: Obese, soft, nontender Ext: Nonpitting LE edema. Skin: dry, dirty, well perfused. Medications Medications Current Medications IV Flush (NS 3 ml) 3 ml PER PROTOCOL IV ; Start 03/25/18 at 14:00 Ondansetron HCl (Zofran Inj) 4 mg Q6H PRN IV NAUSEA AND/OR VOMITING; Start 03/25/18 at 14:00 Acetaminophen (Tylenol Tab) 650 mg Q6H PRN PO PAIN LEVEL 1-3 OR FEVER; Start 03/25/18 at 14:00 Enoxaparin Sodium (Lovenox) 40 mg DAILY SC Last administered on 03/28/18at 10:41; Admin Dose 40 MG; Start 03/26/18 at 09:00 Amlodipine Besylate (Norvasc) 10 mg DAILY PO Last administered on 03/28/18at 10:34; Admin Dose 10 MG; Start 03/26/18 at 09:00 Atorvastatin Calcium (Lipitor) 10 mg QHS PO Last administered on 03/27/18 20:18; Admin Dose 10 MG; Start 03/25/18 at 21:00 Risperidone (Risperdal) 3 mg BID PO Last administered on 03/28/18 10:34; Admin Dose 3 MG; Start 03/25/18 at 21:00 Albuterol/ Ipratropium (Duoneb) 3 ml Q4H PRN NEB wheezing; Start 03/25/18 at 14:00 Ceftriaxone Sodium 50 ml @ 100 mls/hr Q24H IVPB Last administered on 03/28/18 10:33; Admin Dose 100 MLS/HR; Start 03/26/18 at 11:00 Azithromycin 250 ml @ 250 mls/hr Q24H IVPB Last administered on 03/28/18 12:05; Admin Dose 250 MLS/HR; Start 03/26/18 at 11:00 Nicotine (Nicoderm 21 Mg/ 24hr) 1 patch DAILY TRANSDERM Last administered on 03/28/18 10:33; Admin Dose 1 PATCH; Start 03/25/18 at 15:30 Losartan Potassium (Cozaar) 100 mg DAILY PO Last administered on 03/28/18 10:35; Admin Dose 100 MG; Start 03/26/18 at 09:00 Prednisone (Prednisone) 40 mg DAILY PO Last administered on 03/28/18 10:34; Admin Dose 40 MG; Start 03/25/18 at 14:00; Stop 03/30/18 at 11:00 Hydrochlorothiazide (Hydrochlorothiazide) 12.5 mg DAILY PO Last administered on 03/28/18 10:33; Admin Dose 12.5 MG; Start 03/26/18 at 09:00 Furosemide (Lasix) 40 mg BID DIURETICS IV Last administered on 03/28/18 06:18; Admin Dose 40 MG; Start 03/25/18 at 18:00 Albuterol/ Ipratropium (Duoneb) 3 ml Q4H RESP THERAPY HHN Last administered on 03/28/18 13:33; Admin Dose 3 ML; Start 03/26/18 at 09:00 Collagenase (Santyl) 1 applic DAILY TOP Last administered on 12/26/18at 08:38; Admin Dose 1 APPLIC; Start 03/26/18 at 11:00 Acetylcysteine (Mucomyst) 2 ml Q6H RESP THERAPY NEB Last administered on 03/28/18at 13:33; Admin Dose 2 ML; Start 03/27/18 at 10:30 JENNIFER BOLIVAR MD Mar 28, 2018 13:48
[2018-03-28] MEDS: FLUTICASONE/VILANTEROL 200-25 INH DEVICE INH SCH (17:44)
--- NOTE | 2018-03-28 18:45 | NUR ---
alert and forgetful, anxious to get home, lungs diminished with coarse cough, refused lasix IV this PM, incontinent dermatitis to coccyx healed, refused allevyn
[2018-03-28] MEDS: NYSTATIN 30 GM POWDER BTL TOP SCH (21:03)
[2018-03-28] MEDS: ATORVASTATIN 10 MG TAB PO SCH (21:03)
[2018-03-28] MEDS: COLLAGENASE 5 GM (UD JAR) TOP SCH (21:04)
[2018-03-29] VITALS (10 sets, daily range): BP systolic 132–167; BP diastolic 63–74; PULSE 58–83; RESP 18–24
[2018-03-29] MEDS: ACETYLCYSTEINE 20% 4 ML VIAL NEB SCH ×4 (01:27→20:27)
[2018-03-29] MEDS: FUROSEMIDE 40 MG INJ IV SCH ×2 (06:00→18:00)
--- NOTE | 2018-03-29 07:04 | NUR ---
EOSS:Patient had accidentally pulled out IV when she went to restroom. No fall or injury. Refusing Lasix IV. WIll endorse.
[2018-03-29] MEDS: FLUTICASONE/VILANTEROL 200-25 INH DEVICE INH SCH (08:51)
[2018-03-29] MEDS: NICOTINE (21 MG/24 HR) PATCH TRANSDERM SCH (08:51)
[2018-03-29] MEDS: RISPERIDONE 1 MG TAB PO SCH ×2 (08:52→21:46)
[2018-03-29] MEDS: HYDROCHLOROTHIAZIDE 12.5 MG CAP PO SCH (08:53)
[2018-03-29] MEDS: AMLODIPINE 10 MG TAB PO SCH (08:53)
[2018-03-29] MEDS: LOSARTAN 50 MG TAB PO SCH (08:53)
[2018-03-29] MEDS: predniSONE 20 MG TAB PO SCH (08:53)
[2018-03-29] MEDS: ENOXAPARIN 40 MG/0.4 ML SYG SC SCH (09:07)
[2018-03-29] MEDS: COLLAGENASE 5 GM (UD JAR) TOP SCH ×2 (09:08→21:46)
[2018-03-29] MEDS: NYSTATIN 30 GM POWDER BTL TOP SCH ×2 (09:08→21:52)
[2018-03-29] MEDS: CEFTRIAXONE 1 GM/50 ML (PMX) 50 ML IVPB SCH (11:28)
[2018-03-29] MEDS: AZITHROMYCIN 500MG/NS (PMX) 250 ML IVPB SCH (11:28)
--- NOTE | 2018-03-29 11:35 | NUR ---
PT [facility] Patient: Ambar Barnett : 1945 Age/Sex: 72/F Unit#: [id number] Room/Bed: 504/A User: Ruthy Cabrera PTA Date: 18 11:35 Type: PT Technical Record Therapy day number 2 Subjective Denies pain Pain Scale NUMERIC Pain Intensity 0 (0-10) Patient Stated Goal for Pain Relief 0 (0-10) Pain Level Comment denied pain Transfer Training Start Time 11:20 Supine to Sit Stand by Assist Bed Mobility Sit to Supine Stand by Assist Transfer Training End Time 11:35 Total Transfer Training Time 15 min (8-127) Patient uses wheelchair Not Applicable Static Sitting Balance Good Dynamic Sitting Balance Good Safety Judgement Fair Activity Tolerance Poor Additional Equipment Present 4LO2 via NC Post Treatment Pain Intensity 0 0-10 Variance Documentation See note Total Treament Time 15 min (8-127) Total Minutes 15 Total Units 1 PT Technical Record Comment RN Rekha cleared pt for PT. See above for assist levels. Received pt returning back to bed w/ RESEARCH PROGRAM COORDINATOR present in room. Pt transferred to EOB. Pt refusing PT. Educated pt on benefits and importance of PT and OOB activities however despite max encouragement pt ocntinued to refuse. Stated, "I don't want therapy. I talked to my doctor and I told him I did not want physical therapy. He told me to think about, I thought about it and i don't want it. It's torture for me. I don't want therapy." Respected pt's wishes. Informed RN of pt status and refusal.
--- NOTE | 2018-03-29 16:23 | NUR ---
ALLISON: D/C PLANNING ALLISON and CHELSEY De La Cruz met with patient at bedside for d/c planning. According to Jono, patient will need to go to SNF prior to [facility] due to oxygen needs. ALLISON and Jono met with patient at bedside, however patient stated that she first wants to speak with Asif from the [facility] prior to deciding whether she will go or not. ALLISON and CHELSEY attempted to educate patient on importance of going due to oxygen, however she refused to participate, stating she wants to speak with Asif first. No other questions/ concerns at this time. ALLISON remains available as needed.
--- NOTE | 2018-03-29 16:34 | PDOCDIS ---
Discharge Instructions DIAGNOSIS Discharge Diagnosis COPD exacerbation CONDITION [id number] Patient Condition: [id number] Fair HOME CARE INSTRUCTIONS: [id number] Diet Instructions: [id number] Regular ACTIVITY: [id number] Activity Restrictions: [id number] No Restrictions FOLLOW UP/APPOINTMENTS Follow-up Plan 1. Take all medications as prescribed. 2. Continue IV antibiotics until 04/02/2018 3. Stop smoking. JENNIFER BOLIVAR MD Mar 29, 2018 16:34
--- NOTE | 2018-03-29 17:16 | NUR ---
Discharge arrangements; Due to Patient's need for oxygen, she unfortunately cannot return to her board and care per Asif (imaging system administrator) . However Asif provided us a longterm facility they are in contract with that will take her and upon improvement will be able to transfer back to her board and care at [facility]. Called over to recommended SNF- [facility] ; spoke with Richard and she will be reviewing case. Upon call back, Richard has accepted Patient with room 404A reserved and be going to [address] [place] [address]. However they wanted to order a BiPAP machine prior to Patient's arrival, they do not have an order but they insist since Patient requires oxygenation. Provided María (Admissions) to call RN once it has arrived as to activate ambulance transportation. Ambulance transportation set with [employer] ; set on will call and can activate with trip# [phone]. Will endorse to Care Team discharge plan of care. Also RN can give report to Krista Antonio [facility] . Addendum: 03/30/18 at 0911 by BEBETO BECERRA RN CM BiPAP Delivery; Correction: [facility] can be reached at . Contacted with [facility] but they will call me back once their team is available because they are having an emergency this morning. Left contact number and will check back.
--- NOTE | 2018-03-29 17:30 | DS ---
Date/Time of Note Date/Time of Note DATE: 03/29/18 TIME: 17:26 Discharge Summary Admission/Discharge Info Admit Date/Time Mar 25, 2018 at 12:55 Discharge Date/Time Mar 29, 2018 Discharge Diagnosis COPD exacerbation Patient Condition: Fair Consults None Procedures None Hx of Present Illness Ms. Barnett is a 72 yo woman brought in to the ED by ambulance for SOB. History is limited; the patient is very hard of hearing and gives inappropriate responses to questions. On exam she has profuse sputum production but she cannot clarify how long this has been going on; when her shortness of breath started, or if there have been any recent fevers. She does however report that she has not been hospitalized since her last COPD exacerbation in 03/2017. She does not take her inhalers as prescribed and she smokes 1 pack per day. In the ED she was hypoxic to 70s on room air. Otherwise vitals were normal. CXR was concerning for a RLL consolidation and bibasilar changes with small L pleural effusion. WBC was 8.8, flu negative, but lactate 2.4. Labs otherwise unremarkable. Hospital Course The patient was started on ceftriaxone and azithromycin for suspected pneumonia. This will be continued until 04/02/2018. She was also started on an oral steroid taper for 5 days. Initially she had very high oxygen requirements and required noninvasive CPAP continuously for almost two days. Soon her condition improved and she was breathing comfortably on 4L nasal cannula. She was also resumed on a daily inhaled LABA/ICS. She is medically stable for discharge but cannot return to her board and care on oxygen; so will go to SNF until she can breathe on room air. The patient was counselled extensively on smoking cessation but remains resistant, and does not seem to understand the link between smoking and her decline in lung function. Patient not discharged on 03/29. Will monitor overnight. Home Meds Reported Medications Risperidone* (Risperidone*) 3 Mg Tablet, 3 MG PO BID, TAB 03/25/18 Losartan-Hydrochlorothiazide (Losartan-HCTZ) 100-12.5 Mg Tab, 1 TAB PO DAILY, TAB 03/25/18 Furosemide* (Furosemide*) 40 Mg Tablet, 40 MG PO DAILY, TAB 03/25/18 Atorvastatin Calcium (Atorvastatin Calcium) 10 Mg Tablet, 10 MG PO QHS, #30 TAB 03/25/18 Amlodipine Besylate* (Amlodipine Besylate*) 10 Mg Tablet, 10 MG PO DAILY, #30 TAB 03/25/18 Discontinued Reported Medications Clobetasol/Skin Cleanser #28 (Clodan 0.05% Kit) 1 Each Kt.shm.cln, 1 EACH TP DAILY 03/21/17 Ciclopirox/Skin Cleanser No.28 (CICLODAN 0.77% CREAM KIT) 544 Gm Combo..pkg, 1 APPLIC TP BID, KIT 03/21/17 Budesonide-Formoterol Fumarate* (Symbicort*) 160-4.5 Hfa.aer.ad, 2 PUFF INHALATION BID, #1 EACH 03/21/17 Risperidone (Risperdal M-Tab) 3 Mg Tab.rapdis, 3 MG PO BID 03/21/17 Nicotine (Nicotine Patch) 1 Each Patch.dysq, 1 EACH TD DAILY 03/21/17 Losartan-Hydrochlorothiazide (Losartan-HCTZ) 100-12.5 Mg Tab, 1 TAB PO DAILY, TAB 03/21/17 Furosemide* (Furosemide*) 40 Mg Tablet, 40 MG PO DAILY, TAB 03/21/17 Atorvastatin Calcium (Atorvastatin Calcium) 10 Mg Tablet, 10 MG PO QHS, #30 TAB 03/21/17 Amlodipine Besylate* (Amlodipine Besylate*) 10 Mg Tablet, 10 MG PO DAILY, #30 TAB 03/21/17 Discontinued Scripts Prednisone* (Prednisone*) 10 Mg Tab, 10 MG PO DAILY, #21 TAB take 6 pills tomorrow take 5 pills on the next day take 4 pills on the next day take 3 pills on the next day take 2 pills on the next day take 1 pill on the next day then stop Prov:GHISLAINE PABLO 03/23/17 Montelukast Sodium* (Montelukast Sodium*) 10 Mg Tablet, 10 MG PO HS for 30 Days, TAB Prov:GHISLAINE PABLO 03/23/17 Tiotropium Palmer* (Spiriva*) 18 Mcg Cap.w.dev, 1 INH INH DAILY for 30 Days Prov:GHISLAINE PABLO 03/23/17 Terbinafine* (Lamisil*) 250 Mg Tablet, 250 MG PO BID for 14 Days, TAB Prov:GHISLAINE PABLO 03/23/17 Levofloxacin* (Levaquin*) 500 Mg Tablet, 500 MG PO DAILY@06 for 10 Days, TAB Prov:GHISLAINE PABLO 03/23/17 Follow-up Plan 1. Take all medications as prescribed. 2. Continue IV antibiotics until 04/02/2018 3. Stop smoking. Primary Care Provider Care Physician No Primary Time spent on discharge: > 30 minutes Pending Labs Laboratory Tests Test 03/29/18 05:43 White Blood Count 8.9 10^3/ul (4.8-10.8) Red Blood Count 3.83 10^6/ul (4.20-5.40) Hemoglobin 10.8 g/dl (12.0-16.0) Hematocrit 35.8 % (37.0-47.0) Mean Corpuscular Volume 93.5 fl (82.0-101.0) Mean Corpuscular Hemoglobin 28.2 pg (29.0-33.0) Mean Corpuscular Hemoglobin Concent 30.2 g/dl (32.0-37.0) Red Cell Distribution Width 14.6 % (11.5-14.5) Platelet Count 294 10^3/UL (140-415) Mean Platelet Volume 10.6 fl (7.4-10.4) Immature Granulocytes % 0.300 % (0.001-0.429) Neutrophils % 59.1 % (39.0-77.0) Lymphocytes % 28.7 % (15.0-51.0) Monocytes % 10.9 % (0.0-11.0) Eosinophils % 0.8 % (0.0-7.0) Basophils % 0.2 % (0.0-2.0) Nucleated Red Blood Cells % 0.0 /100WBC (0.0-0.0) Immature Granulocytes # 0.030 10^3/ul (0.0-0.031) Neutrophils # 5.2 10^3/ul (1.6-7.5) Lymphocytes # 2.5 10^3/ul (0.8-2.9) Monocytes # 1.0 10^3/ul (0.3-0.9) Eosinophils # 0.1 10^3/ul (0.0-0.5) Basophils # 0.0 10^3/ul (0.0-0.1) Nucleated Red Blood Cells # 0.0 10^3/ul (0.0-0.0) Sodium Level 137 mmol/L (135-144) Potassium Level 4.3 mmol/L (3.5-5.1) Chloride Level 99 mmol/L (97-110) Carbon Dioxide Level 34 mmol/L (21-31) Anion Gap 4 (5-13) Blood Urea Nitrogen 21 mg/dl (7-20) Creatinine 0.69 mg/dl (0.44-1.00) Est Glomerular Filtrat Rate mL/min mL/min (>60) Glucose Level 131 mg/dl (70-220) Calcium Level 8.7 mg/dl (8.4-10.2) JENNIFER BOLIVAR MD Mar 29, 2018 17:30
--- NOTE | 2018-03-29 18:03 | NUR ---
RN Notes Pt refusing PM dose of IV Lasix, risks and benefits explained however pt is still adamant about not taking IV Lasix. MD notified, RN to continue to monitor pt closely.
--- NOTE | 2018-03-29 19:27 | NUR ---
EOSS Pt ao x 4. Pt stable at this time and in no distress noted throughout the shift. Pt on O2 via NC. Pt is for discharge to SNF today (03/29/2018), pending bipap to be delivered at SNF, ambulance is on will call. Pt's room kept clean and clutter free. All needs met and all questions answered. Hourly rounding provided. Will endorse to next shift accordingly.
[2018-03-29] MEDS: ALBUTEROL/IPRATROPIUM (NEB) 3 ML AMP NEB PRN (20:26)
--- NOTE | 2018-03-29 21:30 | NUR ---
CALLED [facility]MY[facility]RAMER REGARDING THE STATUS OF THE BIPAP AND SAID THAT THE BIPAP IS STILL NOT YET DELIVERED AND THEY WILL JUST GIVE US A CALL ONES IT IS AVAILABLE. INFORMED CHARGE NURSE REGARDING THE BIPAP STATUS. WILL CONTINUE TO MONITOR
[2018-03-29] MEDS: ATORVASTATIN 10 MG TAB PO SCH (21:46)
[2018-03-30] VITALS (8 sets, daily range): BP systolic 148–179; BP diastolic 68–80; PULSE 59–77; RESP 18–20
[2018-03-30] MEDS: ACETYLCYSTEINE 20% 4 ML VIAL NEB SCH ×3 (01:36→14:58)
[2018-03-30] MEDS: ALBUTEROL/IPRATROPIUM (NEB) 3 ML AMP NEB PRN ×3 (01:36→14:57)
[2018-03-30] MEDS: FUROSEMIDE 40 MG INJ IV SCH (06:00)
--- NOTE | 2018-03-30 06:36 | NUR ---
[facility] NEVER CALLED BACK THIS SHIFT. PT REMAINS STABLE BUT NON COMPLIANT. STILL HAVING SOB UPON EXERTION. WILL ENDORSE TO AM SHIFT FOR CONTINUITY OF CARE
[2018-03-30] MEDS: NICOTINE (21 MG/24 HR) PATCH TRANSDERM SCH (08:38)
[2018-03-30] MEDS: COLLAGENASE 5 GM (UD JAR) TOP SCH (08:39)
[2018-03-30] MEDS: HYDROCHLOROTHIAZIDE 12.5 MG CAP PO SCH (08:39)
[2018-03-30] MEDS: RISPERIDONE 1 MG TAB PO SCH (08:40)
[2018-03-30] MEDS: LOSARTAN 50 MG TAB PO SCH (08:40)
[2018-03-30] MEDS: AMLODIPINE 10 MG TAB PO SCH (08:40)
[2018-03-30] MEDS: predniSONE 20 MG TAB PO SCH (08:41)
[2018-03-30] MEDS: FLUTICASONE/VILANTEROL 200-25 INH DEVICE INH SCH (08:42)
[2018-03-30] MEDS: ENOXAPARIN 40 MG/0.4 ML SYG SC SCH (09:00)
[2018-03-30] MEDS: NYSTATIN 30 GM POWDER BTL TOP SCH (09:00)
[2018-03-30] MEDS: CEFTRIAXONE 1 GM/50 ML (PMX) 50 ML IVPB SCH (11:00)
[2018-03-30] MEDS: AZITHROMYCIN 500MG/NS (PMX) 250 ML IVPB SCH (11:00)
--- NOTE | 2018-03-30 17:11 | DS ---
Date/Time of Note Date/Time of Note DATE: 03/30/18 TIME: 17:10 Discharge Summary Admission/Discharge Info Admit Date/Time Mar 25, 2018 at 12:55 Discharge Date/Time Mar 30, 2018 Discharge Diagnosis COPD exacerbation Patient Condition: Good Consults None Procedures None Hx of Present Illness Ms. Barnett is a 72 yo woman brought in to the ED by ambulance for SOB. History is limited; the patient is very hard of hearing and gives inappropriate responses to questions. On exam she has profuse sputum production but she cannot clarify how long this has been going on; when her shortness of breath started, or if there have been any recent fevers. She does however report that she has not been hospitalized since her last COPD exacerbation in 03/2017. She does not take her inhalers as prescribed and she smokes 1 pack per day. In the ED she was hypoxic to 70s on room air. Otherwise vitals were normal. CXR was concerning for a RLL consolidation and bibasilar changes with small L pleural effusion. WBC was 8.8, flu negative, but lactate 2.4. Labs otherwise unremarkable. Hospital Course The patient was started on ceftriaxone and azithromycin for suspected pneumonia. This will be continued until 04/02/2018. She was also started on an oral steroid taper for 5 days. Initially she had very high oxygen requirements and required noninvasive CPAP continuously for almost two days. Soon her condition improved and she was breathing comfortably on 4L nasal cannula. She was also resumed on a daily inhaled LABA/ICS. She is medically stable for discharge but cannot return to her board and care on oxygen; so will go to SNF until she can breathe on room air. The patient was counselled extensively on smoking cessation but remains resistant, and does not seem to understand the link between smoking and her decline in lung function. Home Meds Reported Medications Risperidone* (Risperidone*) 3 Mg Tablet, 3 MG PO BID, TAB 03/25/18 Losartan-Hydrochlorothiazide (Losartan-HCTZ) 100-12.5 Mg Tab, 1 TAB PO DAILY, TAB 03/25/18 Furosemide* (Furosemide*) 40 Mg Tablet, 40 MG PO DAILY, TAB 03/25/18 Atorvastatin Calcium (Atorvastatin Calcium) 10 Mg Tablet, 10 MG PO QHS, #30 TAB 03/25/18 Amlodipine Besylate* (Amlodipine Besylate*) 10 Mg Tablet, 10 MG PO DAILY, #30 TAB 12/24/18 Discontinued Reported Medications Clobetasol/Skin Cleanser #28 (Clodan 0.05% Kit) 1 Each Kt.shm.cln, 1 EACH TP DAILY 03/21/17 Ciclopirox/Skin Cleanser No.28 (CICLODAN 0.77% CREAM KIT) 544 Gm Combo..pkg, 1 APPLIC TP BID, KIT 03/21/17 Budesonide-Formoterol Fumarate* (Symbicort*) 160-4.5 Hfa.aer.ad, 2 PUFF INHALATION BID, #1 EACH 03/21/17 Risperidone (Risperdal M-Tab) 3 Mg Tab.rapdis, 3 MG PO BID 03/21/17 Nicotine (Nicotine Patch) 1 Each Patch.dysq, 1 EACH TD DAILY 03/21/17 Losartan-Hydrochlorothiazide (Losartan-HCTZ) 100-12.5 Mg Tab, 1 TAB PO DAILY, TAB 03/21/17 Furosemide* (Furosemide*) 40 Mg Tablet, 40 MG PO DAILY, TAB 03/21/17 Atorvastatin Calcium (Atorvastatin Calcium) 10 Mg Tablet, 10 MG PO QHS, #30 TAB 03/21/17 Amlodipine Besylate* (Amlodipine Besylate*) 10 Mg Tablet, 10 MG PO DAILY, #30 TAB 03/21/17 Discontinued Scripts Prednisone* (Prednisone*) 10 Mg Tab, 10 MG PO DAILY, #21 TAB take 6 pills tomorrow take 5 pills on the next day take 4 pills on the next day take 3 pills on the next day take 2 pills on the next day take 1 pill on the next day then stop Prov:GHISLAINE PABLO 03/23/17 Montelukast Sodium* (Montelukast Sodium*) 10 Mg Tablet, 10 MG PO HS for 30 Days, TAB Prov:GHISLAINE PABLO Adalid 03/23/17 Tiotropium [place]* (Spiriva*) 18 Mcg Cap.w.dev, 1 INH INH DAILY for 30 Days Prov:GHISLAINE PABLO Adalid 03/23/17 Terbinafine* (Lamisil*) 250 Mg Tablet, 250 MG PO BID for 14 Days, TAB Prov:GHISLAINE PABLO 03/23/17 Levofloxacin* (Levaquin*) 500 Mg Tablet, 500 MG PO DAILY@06 for 10 Days, TAB Prov:GHISLAINE PABLO 03/23/17 Follow-up Plan 1. Take all medications as prescribed. 2. Continue IV antibiotics until 04/02/2018 3. Stop smoking. Primary Care Provider Care Physician No Primary Time spent on discharge: > 30 minutes Pending Labs Laboratory Tests Test 03/30/18 05:53 White Blood Count 9.5 10^3/ul (4.8-10.8) Red Blood Count 3.74 10^6/ul (4.20-5.40) Hemoglobin 10.8 g/dl (12.0-16.0) Hematocrit 34.9 % (37.0-47.0) Mean Corpuscular Volume 93.3 fl (82.0-101.0) Mean Corpuscular Hemoglobin 28.9 pg (29.0-33.0) Mean Corpuscular Hemoglobin Concent 30.9 g/dl (32.0-37.0) Red Cell Distribution Width 14.7 % (11.5-14.5) Platelet Count 280 10^3/UL (140-415) Mean Platelet Volume 10.5 fl (7.4-10.4) Immature Granulocytes % 0.400 % (0.001-0.429) Neutrophils % 63.3 % (39.0-77.0) Lymphocytes % 26.2 % (15.0-51.0) Monocytes % 9.4 % (0.0-11.0) Eosinophils % 0.4 % (0.0-7.0) Basophils % 0.3 % (0.0-2.0) Nucleated Red Blood Cells % 0.0 /100WBC (0.0-0.0) Immature Granulocytes # 0.040 10^3/ul (0.0-0.031) Neutrophils # 6.0 10^3/ul (1.6-7.5) Lymphocytes # 2.5 10^3/ul (0.8-2.9) Monocytes # 0.9 10^3/ul (0.3-0.9) Eosinophils # 0.0 10^3/ul (0.0-0.5) Basophils # 0.0 10^3/ul (0.0-0.1) Nucleated Red Blood Cells # 0.0 10^3/ul (0.0-0.0) Sodium Level 137 mmol/L (135-144) Potassium Level 4.2 mmol/L (3.5-5.1) Chloride Level 96 mmol/L (97-110) Carbon Dioxide Level 35 mmol/L (21-31) Anion Gap 6 (5-13) Blood Urea Nitrogen 17 mg/dl (7-20) Creatinine 0.64 mg/dl (0.44-1.00) Est Glomerular Filtrat Rate mL/min mL/min (>60) Glucose Level 107 mg/dl (70-220) Calcium Level 9.1 mg/dl (8.4-10.2) Phosphorus Level 4.3 mg/dl (2.5-4.9) Magnesium Level 2.0 mg/dl (1.7-2.5) JENNIFER BOLIVAR MD Mar 30, 2018 17:10
--- NOTE | 2018-03-30 18:36 | NUR ---
DISCHARGE TO [facility] Patient discharged to [facility] . Report given to Hardeep HOOPER. athletic monitor removed. Peripheral IV kept for continued IV antibiotics. Discharge packet given to ambulance personnel. Stable vital signs. Sent with all belongings.
== END 2018-03-30 18:20 | DRG 193 ==
LOC: E/R 11:05 → TEL 12:55
PROVIDERS: ADMIT Internal Medicine; ATTEND Internal Medicine
DX: J18.9 Pneumonia, unspecified organism (principal); J96.02 Acute respiratory failure with hypercapnia; J96.01 Acute respiratory failure with hypoxia; J44.1 Chronic obstructive pulmonary disease with (acute) exacerbation; I11.0 Hypertensive heart disease with heart failure; I50.9 Heart failure, unspecified; F17.200 Nicotine dependence, unspecified, uncomplicated; E78.5 Hyperlipidemia, unspecified
CPT/HCPCS: 36415; 36600; 71045; 80048; 80053; 80061; 82803; 83036; 83605; 83735; 83880; 84100; 84443; 84484; 85025; 85610; 85730; 87040; 87400; 93005; 94640; 94660; 94664; 96374; 96375; 97162; 97530; J0456; J0696; J1100; J1650; J1940; J7030; J7512